=== PATIENT | male | born 1950 | race Caucasian/White ===

== ENCOUNTER 2017-07-21 10:56 | Inpatient (IN) | payer MEDICARE, OTHER ==
[2017-07-21] MEDS ORDERED: IPRATROPIUM 0.5 MG/2.5 ML NEBU INHALATION STA (11:16)
[2017-07-21] MEDS ORDERED: SODIUM CHLORIDE 0.9% 1,000 ML IV STA ×2 (11:16)
[2017-07-21] MEDS ORDERED: LORazepam 2 MG/ML INJ IV STA (11:16)
[2017-07-21] MEDS ORDERED: methylPREDNISolone SOD SUCCI 125 MG/2 ML VIAL IV STA (11:16)
[2017-07-21] MEDS ORDERED: ALBUTEROL NEBULIZED 2.5 MG/3 ML INHALATION STA (11:16)
[2017-07-21] MEDS ORDERED: MORPHINE SULFATE 10 MG/ML SYRINGE IVP PRN (11:17)
[2017-07-21] MEDS ORDERED: MORPHINE SULFATE 10 MG/ML SYRINGE IVP STA (11:17)
[2017-07-21] MEDS ORDERED: AZITHROMYCIN 500 MG in SODIUM CHLORIDE 0.9% 250 ML IVPB STA (11:19)
--- NOTE | 2017-07-21 11:24 | ED ---
General Adult HPI - General Chief complaint: Shortness of Breath Stated complaint: legs/feet swollen Time Seen by Provider: 07/21/17 11:10 Source: patient, RN notes reviewed, old records reviewed Mode of arrival: ambulatory Limitations: no limitations - History of Present Illness Initial comments: This is a 67-year-old male who is evaluation regarding shortness of breath, patient has history of COPD and CHF. Patient denies any fevers but does complain of increased cough and congestion. No travel history. Patient's most recent hospitalization has been years ago. Patient states he usually goes to [facility]. Patient states he is doing. She was at home with no help. He is getting increased swelling of both of his legs. He cannot lie down flat and when he exerts himself he becomes severely short of breath. No history of fever - Related Data Home Medications Medication Instructions Recorded Confirmed Albuterol Nebulized [Ventolin 2.5 mg INHALATION Q4H 07/21/17 07/21/17 Nebulized] Albuterol Sulfate [Proair Hfa] 1 - 2 puff INHALATION Q6HR PRN 07/21/17 07/21/17 Aspirin EC [Ecotrin Low Dose] 81 mg PO DAILY 07/21/17 07/21/17 Budesonide/Formoterol Fumarate 1 puff INHALATION RT-BID 07/21/17 07/21/17 [Symbicort 80-4.5 Mcg Inhaler] Equate Cough And Congestion 1 tab PO DAILY 07/21/17 07/21/17 Equate Sinus 1 tab PO DAILY 07/21/17 07/21/17 Ibuprofen [Motrin] 600 mg PO Q8HR PRN 07/21/17 07/21/17 Levothyroxine Sodium [Synthroid] 50 mcg PO DAILY 07/21/17 07/21/17 Tiotropium 18 Mcg/Puff [Spiriva] 1 cap INHALATION RT-DAILY 07/21/17 07/21/17 Allergies Allergy/AdvReac Type Severity Reaction Status Date / Time No Known Allergies Allergy Verified 07/21/17 11:39 Review of Systems ROS Statement: Those systems with pertinent positive or pertinent negative responses have been documented in the HPI. ROS Other: All systems not noted in ROS Statement are negative. Past Medical History Past Medical History: COPD, Thyroid Disorder History of Any Multi-Drug Resistant Organisms: None Reported Additional Past Surgical History / Comment(s): radiated thyroid Past Psychological History: No Psychological Hx Reported Smoking Status: Current every day smoker Past Alcohol Use History: None Reported Past Drug Use History: None Reported General Exam Limitations: no limitations General appearance: alert, in no apparent distress Head exam: Present: atraumatic, normocephalic, normal inspection Eye exam: Present: normal appearance, PERRL, EOMI. Absent: scleral icterus, conjunctival injection, periorbital swelling ENT exam: Present: normal exam, mucous membranes moist Neck exam: Present: normal inspection. Absent: tenderness, meningismus, lymphadenopathy Respiratory exam: Present: normal lung sounds bilaterally, wheezes, accessory muscle use, decreased breath sounds, prolonged expiratory. Absent: respiratory distress, rales, rhonchi, stridor Cardiovascular Exam: Present: regular rate, normal rhythm, normal heart sounds. Absent: systolic murmur, diastolic murmur, rubs, gallop, clicks GI/Abdominal exam: Present: soft, normal bowel sounds. Absent: distended, tenderness, guarding, rebound, rigid Extremities exam: Present: normal inspection, full ROM, normal capillary refill. Absent: tenderness, pedal edema, joint swelling, calf tenderness Back exam: Present: normal inspection Neurological exam: Present: alert, oriented X3, CN II-XII intact Psychiatric exam: Present: normal affect, normal mood Skin exam: Present: warm, dry, intact, normal color. Absent: rash Course Vital Signs 07/21/17 07/21/17 07/21/17 10:58 12:00 12:10 Temperature 98.1 F Pulse Rate 94 95 87 Respiratory 20 18 Rate Blood Pressure 194/91 172/84 O2 Sat by Pulse 97 100 Oximetry 07/21/17 07/21/17 07/21/17 12:14 12:35 12:45 Temperature Pulse Rate 85 89 93 Respiratory 18 Rate Blood Pressure 172/85 O2 Sat by Pulse 99 Oximetry 07/21/17 12:56 Temperature Pulse Rate 92 Respiratory 18 Rate Blood Pressure 163/84 O2 Sat by Pulse 99 Oximetry - Reevaluation(s) Reevaluation #1: 07/21/17 12:58 No significant improvement with first breathing treatment, patient is feeling better and able to rest comfortably after second breathing treatment EKG Findings - EKG Comments: EKG Findings:: EKG shows normal sinus rhythm rate of 91, CT 126, QRS 66, QTc 440 Medical Decision Making - Medical Decision Making 59 male the ER for evaluation of multifactorial shortness of breath and respiratory failure, patient is actively placed on BiPAP at this time as he has responded a second breathing treatment patient be admitted for evaluation by cardiology and pulmonology, lateral cardiopulmonary status - Lab Data Result diagrams: 07/21/17 11:07/21/17 11:27 Lab Results 07/21/17 07/21/17 07/21/17 Range/Units 11: 11: 11: WBC 9.0 (3.8-10.6) k/uL RBC 4.91 (4.30-5.90) m/uL Hgb 15.6 (13.0-17.5) gm/dL Hct 48.4 (39.0-53.0) % MCV 98.7 (80.0-100.0) fL MCH 31.8 (25.0-35.0) pg MCHC 32.3 (31.0-37.0) g/dL RDW 13.6 (11.5-15.5) % Plt Count 243 (150-450) k/uL Neutrophils % 66 % Lymphocytes % 23 % Monocytes % 9 % Eosinophils % 1 % Basophils % 0 % Neutrophils # 5.9 (1.3-7.7) k/uL Lymphocytes # 2.0 (1.0-4.8) k/uL Monocytes # 0.8 (0-1.0) k/uL Eosinophils # 0.1 (0-0.7) k/uL Basophils # 0.0 (0-0.2) k/uL PT (9.0-12.0) sec INR (<1.2) APTT (22.0-30.0) sec Sodium 135 L (137-145) mmol/L Potassium 4.8 (3.5-5.1) mmol/L Chloride 106 (98-107) mmol/L Carbon Dioxide 26 (22-30) mmol/L Anion Gap 3 mmol/L BUN 31 H (9-20) mg/dL Creatinine 1.30 H (0.66-1.25) mg/dL Est GFR (MDRD) Af Amer >60 (>60 ml/min/1.73 sqM) Est GFR (MDRD) Non-Af 55 (>60 ml/min/1.73 sqM) Glucose 98 (74-99) mg/dL Calcium 8.0 L (8.4-10.2) mg/dL Magnesium 2.4 H (1.6-2.3) mg/dL Total Bilirubin 0.4 (0.2-1.3) mg/dL AST 31 (17-59) U/L ALT 33 (21-72) U/L Alkaline Phosphatase 95 (38-126) U/L Total Creatine Kinase 146 (55-170) U/L CK-MB (CK-2) 3.0 H* (0.0-2.4) ng/mL CK-MB (CK-2) Rel Index 2.1 Troponin I 0.013 (0.000-0.034) ng/mL NT-Pro-B Natriuret Pep pg/mL Total Protein 5.0 L (6.3-8.2) g/dL Albumin 2.5 L (3.5-5.0) g/dL 07/21/17 07/21/17 Range/Units 11:27 11:27 WBC (3.8-10.6) k/uL RBC (4.30-5.90) m/uL Hgb (13.0-17.5) gm/dL Hct (39.0-53.0) % MCV (80.0-100.0) fL MCH (25.0-35.0) pg MCHC (31.0-37.0) g/dL RDW (11.5-15.5) % Plt Count (150-450) k/uL Neutrophils % % Lymphocytes % % Monocytes % % Eosinophils % % Basophils % % Neutrophils # (1.3-7.7) k/uL Lymphocytes # (1.0-4.8) k/uL Monocytes # (0-1.0) k/uL Eosinophils # (0-0.7) k/uL Basophils # (0-0.2) k/uL PT 9.4 (9.0-12.0) sec INR 0.9 (<1.2) APTT 28.8 (22.0-30.0) sec Sodium (137-145) mmol/L Potassium (3.5-5.1) mmol/L Chloride (98-107) mmol/L Carbon Dioxide (22-30) mmol/L Anion Gap mmol/L BUN (9-20) mg/dL Creatinine (0.66-1.25) mg/dL Est GFR (MDRD) Af Amer (>60 ml/min/1.73 sqM) Est GFR (MDRD) Non-Af (>60 ml/min/1.73 sqM) Glucose (74-99) mg/dL Calcium (8.4-10.2) mg/dL Magnesium (1.6-2.3) mg/dL Total Bilirubin (0.2-1.3) mg/dL AST (17-59) U/L ALT (21-72) U/L Alkaline Phosphatase (38-126) U/L Total Creatine Kinase (55-170) U/L CK-MB (CK-2) (0.0-2.4) ng/mL CK-MB (CK-2) Rel Index Troponin I (0.000-0.034) ng/mL NT-Pro-B Natriuret Pep 3200 pg/mL Total Protein (6.3-8.2) g/dL Albumin (3.5-5.0) g/dL - Radiology Data Radiology results: report reviewed (Chest x-ray positive for CHF and pneumonia) , image reviewed Disposition Clinical Impression: Community acquired pneumonia, Acute pulmonary edema, Congestive heart failure, Acute exacerbation of chronic obstructive airways disease, Hypoxia Disposition: ADMITTED IP TO THIS HOSP Condition: Fair Referrals: Justin Rios DO [Primary Care Provider] - 1-2 days
[2017-07-21 11:38] LABS: Basophils % (A) 0 %; CH 32.3; CHCM 32.9; Eosinophils # (A) 0.1 k/uL (0-0.7); Eosinophils % (A) 1 %; HCT 48.4 % (39.0-53.0); HDW 2.51; HGB 15.6 gm/dL (13.0-17.5); Luc # (Auto) 0.22; Luc % (Auto) 2; Lymphocytes % (A) 23 %; MCH 31.8 pg (25.0-35.0); MCHC 32.3 g/dL (31.0-37.0); MCV 98.7 fL (80.0-100.0); Monocytes # (A) 0.8 k/uL (0-1.0); Monocytes % (A) 9 %; Neutrophils # (A) 5.9 k/uL (1.3-7.7); Neutrophils % (A) 66 %; RBC 4.91 m/uL (4.30-5.90); RDW 13.6 % (11.5-15.5); WBC (Perox) 8.32
--- NOTE | 2017-07-21 11:47 | XR ---
EXAMINATION TYPE: XR chest 1V portable DATE OF EXAM: 07/21/2017 COMPARISON: Chest x-ray April 26, 2014 HISTORY: Shortness of breath and bilateral leg swelling TECHNIQUE: Single AP portable frontal upright view of the chest is obtained. FINDINGS: The cardiac silhouette size remains within normal limits. The osseous structures remain demineralized. There is new focal opacity right mid to upper lung lateral aspect. There are suspected small bilateral pleural effusions and mild interstitial edema. No pneumothorax is evident bilaterall y. IMPRESSION: Small bilateral pleural effusions and mild interstitial edema, consider fluid overload s sánchez. Slightly more suspicious focal opacity right mid to upper lung suggestive of acute infiltrate a nd/or edema. Progress study advised.
[2017-07-21 11:48] LABS: INR 0.9 (<1.2); Partial Thromboplastin Time 28.8 sec (22.0-30.0); Prothrombin Time 9.4 sec (9.0-12.0)
[2017-07-21 11:49] LABS: ALT 33 U/L (21-72); AST 31 U/L (17-59); Alkaline Phosphatase 95 U/L (38-126); Anion Gap 3 mmol/L; Blood Urea Nitrogen 31 mg/dL (9-20); Carbon Dioxide 26 mmol/L (22-30); Chloride 106 mmol/L (98-107); Glucose 98 mg/dL (74-99); Magnesium 2.4 mg/dL (1.6-2.3); Non-African American GFR(MDRD) 55 (>60 ml/min/1.73 sqM); Potassium 4.8 mmol/L (3.5-5.1); Sodium 135 mmol/L (137-145); Total Bilirubin 0.4 mg/dL (0.2-1.3)
[2017-07-21 12:14] LABS: Troponin I 0.013 ng/mL (0.000-0.034)
[2017-07-21] MEDS ORDERED: cefTRIAXone IN SWFI 1,000 MG/10 ML SYRINGE IVP STA (12:54)
[2017-07-21] MEDS ORDERED: PNEUMONIA PROTOCOL UTILIZED 1 EACH MISC PO PRN (12:54)
[2017-07-21] MEDS: SODIUM CHLORIDE 0.9% 1,000 ML IV SCH (13:14)
[2017-07-21] MEDS: IPRATROPIUM-ALBUTEROL 3 ML NEB INHALATION SCH ×2 (17:03→20:53)
[2017-07-21] MEDS ORDERED: IBUPROFEN 600 MG TAB PO PRN (18:45)
[2017-07-21] MEDS: SYMBICORT 80-4.5 MCG INHALER INHALATION SCH (20:53)
[2017-07-21] MEDS: IPRATROPIUM 0.5 MG/2.5 ML NEBU INHALATION SCH (20:54)
[2017-07-22] MEDS: NICOTINE POLACRILEX 2 MG GUM BUCCAL PRN ×2 (01:17→07:47)
[2017-07-22] MEDS: LEVOTHYROXINE 50 MCG TAB PO SCH (06:54)
[2017-07-22] MEDS: ASPIRIN 81 MG PO SCH (07:47)
--- NOTE | 2017-07-22 07:52 | XR ---
EXAMINATION TYPE: XR chest 2V DATE OF EXAM: 07/22/2017 HISTORY: pneumonia. REFERENCE: Previous study dated 07/21/2017. FINDINGS: The lungs are overinflated. There is chronic interstitial change. The heart is not enlarged . I do not see evidence for focal pneumonia. It would be difficult to exclude some superimposed edema . There is a right-sided pleural effusion. IMPRESSION: 1. COPD. 2. RIGHT-SIDED PLEURAL EFFUSION. 3. INTERSTITIAL CHANGE. SOME OF THIS APPEARS CHRONIC. IT WOULD BE DIFFICULT TO EXCLUDE SUPERIMPOSED P ULMONARY EDEMA. PLEASE CORRELATE CLINICALLY.
[2017-07-22] MEDS: IPRATROPIUM-ALBUTEROL 3 ML NEB INHALATION SCH ×4 (07:53→21:09)
[2017-07-22] MEDS: IPRATROPIUM 0.5 MG/2.5 ML NEBU INHALATION SCH ×4 (07:54→21:10)
[2017-07-22] MEDS: SYMBICORT 80-4.5 MCG INHALER INHALATION SCH ×2 (07:54→21:09)
[2017-07-22] MEDS ORDERED: AZITHROMYCIN 500 MG in SODIUM CHLORIDE 0.9% 250 ML IVPB SCH (09:00)
[2017-07-22] MEDS ORDERED: ENOXAPARIN 40 MG/0.4 ML SYRINGE SQ SCH (09:00)
[2017-07-22] MEDS ORDERED: LISINOPRIL 2.5 MG TAB PO SCH (10:15)
[2017-07-22] MEDS: FUROSEMIDE 10 MG/ML 2 ML VIAL IV SCH ×2 (10:54→21:09)
[2017-07-22] MEDS: POTASSIUM CHLORIDE ER 20 MEQ TAB.ER PO SCH (10:54)
[2017-07-22 10:57] LABS: Basophils % (A) 0 %; CH 31.5; Eosinophils % (A) 0 %; HDW 2.45; HGB 13.6 gm/dL (13.0-17.5); Luc # (Auto) 0.26; Luc % (Auto) 2; Lymphocytes # (A) 1.3 k/uL (1.0-4.8); Lymphocytes % (A) 10 %; MCH 32.1 pg (25.0-35.0); MCHC 32.4 g/dL (31.0-37.0); MCV 99.1 fL (80.0-100.0); Mean Platelet Volume 7.5; Monocytes # (A) 1.3 k/uL (0-1.0); Monocytes % (A) 10 %; Neutrophils # (A) 10.3 k/uL (1.3-7.7); Neutrophils % (A) 78 %; RBC 4.24 m/uL (4.30-5.90); RDW 13.4 % (11.5-15.5); WBC 13.2 k/uL (3.8-10.6)
[2017-07-22 11:11] LABS: ALT 26 U/L (21-72); AST 22 U/L (17-59); Alkaline Phosphatase 74 U/L (38-126); Anion Gap 2 mmol/L; Blood Urea Nitrogen 48 mg/dL (9-20); Calcium 7.6 mg/dL (8.4-10.2); Carbon Dioxide 25 mmol/L (22-30); Chloride 107 mmol/L (98-107); Glucose 97 mg/dL (74-99); Magnesium 2.4 mg/dL (1.6-2.3); Non-African American GFR(MDRD) 32 (>60 ml/min/1.73 sqM); Sodium 134 mmol/L (137-145); Total Bilirubin <0.1 mg/dL (0.2-1.3); Total Protein 4.1 g/dL (6.3-8.2)
--- NOTE | 2017-07-22 11:32 | P.CNPUL ---
History of Present Illness Consult date: 07/22/17 Reason for consult: dyspnea, COPD History of present illness: 67-old male patient, a chronic smoker, with known history of COPD whereas been followed up at [facility] [place]. The patient is maintained on a combination of Spiriva and Symbicort. During his last evaluation, the patient was checked for oxygen supplementation patient was not found to qualify as to maintain a saturation above 90%. The patient lives alone in [address]. The patient is chronically short of breath however he has been able to manage well, live independently and perform activities of daily today life without any major difficulties. He is a COPD exacerbation was approximately 6 months ago and this was treated and outpatient basis with a combination of antibiotics and steroids. Over the past week, the patient became progressively worse in terms of his breathing and he became short of breath, developed congested cough and sputum production and increased bronchospasm wheezing. He also noted increased lower extremity swelling. No previous history of DVT or pulmonary embolism. No previous history of congestion heart failure. No angina. No palpitations. He had missed a smoker half pack of cigarettes on a daily basis. He had a chest x-ray here in the hospital that showed pulmonary vessel congestion and small right-sided pleural effusion in addition to a hyperinflation consistent with COPD. His BNP level is elevated at 3200. First set of cardiac enzyme including CPK was normal and the troponin was at 0.013. Coagulation profile is within normal limits. Review of Systems Constitutional: Reports fatigue, Reports weakness, Reports weight loss Eyes: denies blurred vision, denies bulging eye, denies decreased vision Ears: deny: decreased hearing, ear discharge, earache Ears, nose, mouth and throat: Denies headache, Denies sore throat Respiratory: Reports cough, Reports cough with sputum, Reports dyspnea, Reports wheezing Gastrointestinal: Denies abdominal pain, Denies diarrhea, Denies nausea, Denies vomiting Genitourinary: Reports as per HPI Musculoskeletal: Denies myalgias Musculoskeletal: bilateral: ankle swelling, absent: ankle pain, ankle stiffness Integumentary: Denies pruritus, Denies rash Neurological: Denies numbness, Denies weakness Psychiatric: Denies anxiety, Denies depression Endocrine: Denies fatigue, Denies weight change Past Medical History Past Medical History: COPD, Eye Disorder, Thyroid Disorder Additional Past Medical History / Comment(s): COPD, R eye macular degeneration , hypothyroid. History of Any Multi-Drug Resistant Organisms: None Reported Additional Past Surgical History / Comment(s): Hyperthyroidism status post radiation radiated thyroid, R eye injections for macular degeneration. Past Anesthesia/Blood Transfusion Reactions: No Reported Reaction Smoking Status: Current every day smoker - Past Family History Father Family Medical History: Myocardial Infarction (CO) Additional Family Medical History / Comment(s): Father had heart problems and of a CO at the age of 53 yrs. Mother Family Medical History: No Reported History Additional Family Medical History / Comment(s): Father was healthy and in his 80's. Medications and Allergies Home Medications Medication Instructions Recorded Confirmed Type Albuterol Nebulized [Ventolin 2.5 mg INHALATION Q4H 07/21/17 07/21/17 History Nebulized] Albuterol Sulfate [Proair Hfa] 1 - 2 puff INHALATION Q6HR PRN 07/21/17 07/21/17 History Aspirin EC [Ecotrin Low Dose] 81 mg PO DAILY 07/21/17 07/21/17 History Budesonide/Formoterol Fumarate 1 puff INHALATION RT-BID 07/21/17 07/21/17 History [Symbicort 80-4.5 Mcg Inhaler] Equate Cough And Congestion 1 tab PO DAILY 07/21/17 07/21/17 History Equate Sinus 1 tab PO DAILY 07/21/17 07/21/17 History Ibuprofen [Motrin] 600 mg PO Q8HR PRN 07/21/17 07/21/17 History Levothyroxine Sodium [Synthroid] 50 mcg PO DAILY 07/21/17 07/21/17 History Tiotropium 18 Mcg/Puff [Spiriva] 1 cap INHALATION RT-DAILY 07/21/17 07/21/17 History Allergies Allergy/AdvReac Type Severity Reaction Status Date / Time No Known Allergies Allergy Verified 07/21/17 11:39 Physical Exam Vitals: Vital Signs Temp Pulse Pulse Resp BP BP Pulse Ox 07/22/17 08:07 88 07/22/17 07:55 92 07/22/17 07:00 96.9 F L 87 16 133/75 90 L 07/21/17 23:00 97.4 F L 89 18 137/71 93 L 07/21/17 21:08 88 07/21/17 20:54 90 07/21/17 17:18 88 07/21/17 17:03 92 94 L 07/21/17 15:00 97.5 F L 95 18 143/75 91 L 07/21/17 13:45 97.8 F 07/21/17 13:42 86 18 156/78 94 L 07/21/17 12:58 94 07/21/17 12:56 92 18 163/84 99 07/21/17 12:45 93 07/21/17 12:35 89 18 172/85 99 07/21/17 12:14 85 07/21/17 12:10 87 18 172/84 100 07/21/17 12:00 95 Intake and Output 07/21/17 07/22/17 07/22/17 22:59 06:59 14:59 Other: # Voids 2 2 Gen. appearance the patient is then and frail and malnourished and mild degree of respiratory distress.Head exam was generally normal. There was no scleral icterus or corneal arcus. Mucous membranes were moist.Neck was supple and without jugular venous distension, thyromegaly, or carotid bruits. Carotids were easily palpable bilaterally. There was no adenopathy. The patient has a barrel chest. Breath sounds are diminished bilaterally along with diffuse expiratory wheezes throughout the lung hol[place]. Heart sounds are distant, positive S1-S2, no cervical murmurs appreciated.Abdominal exam revealed normal bowel sounds. The abdomen was soft, non-tender, and without masses, organomegaly , or appreciable enlargement of the abdominal aorta. Extremities show +1 pitting edema and there is no cyanosis or clubbing at this point. Neurologically the patient is awake and alert and there are no focal neurological deficits.Examination of the skin revealed no evidence of significant rashes, suspicious appearing nevi or other concerning lesions. Results - Laboratory Findings CBC and BMP: 07/22/17 10:19 07/21/17 11:27 PT/INR, D-dimer PT 9.4 sec (9.0-12.0) 07/21/17 11: INR 0.9 (<1.2) 07/21/17 11:27 Abnormal lab findings: Abnormal Labs 07/21/17 07/21/17 07/22/17 11:27 11:27 10:19 WBC 13.2 H RBC 4.24 L Neutrophils # 10.3 H Monocytes # 1.3 H Sodium 135 L BUN 31 H Creatinine 1.30 H Calcium 8.0 L Magnesium 2.4 H CK-MB (CK-2) 3.0 H* Total Protein 5.0 L Albumin 2.5 L - Diagnostic Findings Chest x-ray: image reviewed Assessment and Plan Plan: Assessment 1 acute COPD exacerbation with secondary shortness of breath. Rule out underlying tracheobronchitis 2 CHF suspected based on increased lower extremity edema and elevated BNP level. Chest x-ray also shows increased interstitial markings. 3 acute kidney injury with a creatinine of 1.3 versus chronic kidney failure 4 chronic smoker 5. Hyperthyroidism status post radioactive iodine treatment Plan Start the patient on DuoNeb nebulized treatments around the clock. Start the patient IV Solu-Medrol. Start the patient a combination of Rocephin and Zithromax. Smoking cessation counseling will be done. Start the patient on Lasix 20 mg IV every 12 hours. Monitor lower extremity edema. Obtain Doppler of the lower extremities. Proceed an echocardiogram. We'll continue to follow.
--- NOTE | 2017-07-22 11:35 | CONS ---
CONSULTATION Mr. Brown is a 67-year-old male who is followed only on the [facility], who presented with progressive peripheral edema going on for a week. He has chronic dyspnea on exertion and chronic tobacco use. He is quite limited in physical activity. He had a recent cough. He denies any symptoms of chest pain or prior history of cardiac disease. He denies any history of congestive heart failure in the past. He has occasional dizziness, palpitation, but no syncope. He is somewhat limited in his physical activity. His coronary risk factors are remarkable for smoking. He is nondiabetic. No documented hypertension. His lipid profile according to him has been stable. MEDICATION: His medications at home include levothyroxine 0.05 mg daily. Budesonide, aspirin, albuterol, Spiriva and Motrin on a p.r.n. basis. REVIEW OF SYSTEMS: Significant dyspnea on exertion with significant chronic obstructive lung disease, but he has not been evaluated by Pulmonary in the past. GI system: No recent GI bleed. No peptic ulcer disease. system no dysuria or hematuria. Nervous system no stroke or seizure. PAST MEDICAL HISTORY: Past medical history is remarkable for history of hyperthyroidism and I-131 radiation. He has lost weight at that time. PHYSICAL EXAMINATION: 67-year-old male, alert, oriented, in no apparent distress. Appears older than stated age. Blood pressure running in the 170s to 130s with a heart rate in the 80s. HEAD: Normocephalic. Eyes sclerae anicteric. Neck was increased jugular venous pressure. LUNGS: With severe decrease in the air exchange bilaterally. HEART: Regular rate and rhythm. S1, S2. No S3 with systolic murmur at the base, ejection type. No diastolic murmur. No rub. ABDOMEN: Soft, nontender. Positive bowel sounds. No organomegaly. Extremities 2+ edema bilaterally with +1 distal pulses. LAB DATA: Lab data revealed troponin 0.013. NT proBNP of 3200. BUN and creatinine 31 and 1.3. Potassium 4.8, sodium 135, magnesium of 2.4, hemoglobin 15.6. Chest x-ray revealed pleural effusion of small size with possible infiltrate. EKG revealed sinus mechanism with poor R wave progression cannot exclude inferior wall myocardial infarction. IMPRESSION: 1. Peripheral edema of new onset. His symptoms could be related to cor pulmonale. I do not have any prior evaluation of his left ventricular systolic function. 2. Severe chronic obstructive lung disease with probable tracheobronchitis. 3. History of hyperthyroidism status post radiation. Patient is on thyroid supplement. 4. Renal function abnormality, duration unclear. RECOMMENDATION: From the cardiac standpoint, I will obtain echocardiogram with Doppler to evaluate his thyroid function test. I will add IV Lasix to his regimen. Depending on his left ventricular systolic function, he may be a candidate for an GALLO inhibitor. He will need to be evaluated by the Pulmonary service and depending on his progress, further recommendation will be made. Thank you for this consult. We will follow with you. MMODL / IJN: [id number] /
--- NOTE | 2017-07-22 12:01 | ECHOF ---
Referral Reason:fluid overload MEASUREMENTS -------- HEIGHT: 172.7 cm WEIGHT: 56.3 kg BP: 133/75 RVIDd: 3.0 cm (< 3.3) IVSd: 1.3 cm (0.6 - 1.1) LVIDd: 4.4 cm (3.9 - 5.3) LVPWd: 1.2 cm (0.6 - 1.1) IVSs: 1.7 cm LVIDs: 2.8 cm LVPWs: 1.6 cm LAESV Index (A-L): 29.27 ml/m Ao Diam: 3.5 cm (2.0 - 3.7) AV Cusp: 2.0 cm (1.5 - 2.6) LA Diam: 2.6 cm (2.7 - 3.8) MV EXCURSION: 15.293 mm (> 18.000) MV EF SLOPE: 132 mm/s (70 - 150) EPSS: 1.1 cm MV E Bertin: 0.88 m/s MV DecT: 212 ms MV A Bertin: 1.03 m/s MV E/A Ratio: 0.86 RAP: 15.00 mmHg RVSP: 63.65 mmHg FINDINGS -------- Sinus rhythm. Parasternal and apical views unable to be obtained. Entire study performed from subcostal window. The left ventricular size is normal. There is mild concentric left ventricular hypertrophy. Overa ll left ventricular systolic function is low-normal with, an EF between 50 - 55 %. The right ventricle is mild to moderately enlarged. The right ventricular systolic function is mild ly impaired. LA is midly dilated 29-33ml/m2. RA appears enlarged. The aortic valve is trileaflet, and appears structurally normal. No aortic stenosis or regurgitation. The mitral valve is normal. Mild mitral regurgitation is present. Mild tricuspid regurgitation present. There is moderate to severe pulmonary hypertension. Trace/mild (physiologic) pulmonic regurgitation. The aortic root size is normal. The inferior vena cava is dilated with poor inspiratory collapse which is consistent with estimated r ight atrial pressure of 20 mmHg. There is a small, generalized pericardial effusion present. CONCLUSIONS -------- 1. Sinus rhythm. 2. Parasternal and apical views unable to be obtained. Entire study performed from subcostal window. 3. There is mild concentric left ventricular hypertrophy. 4. Overall left ventricular systolic function is low-normal with, an EF between 50 - 55 %. 5. The right ventricle is mild to moderately enlarged. 6. The right ventricular systolic function is mildly impaired. 7. LA is midly dilated 29-33ml/m2. 8. RA appears enlarged. 9. The aortic valve is trileaflet, and appears structurally normal. No aortic stenosis or regurgitati on. 10. Mild mitral regurgitation is present. 11. Mild tricuspid regurgitation present. 12. There is moderate to severe pulmonary hypertension. 13. Trace/mild (physiologic) pulmonic regurgitation. 14. The aortic root size is normal. 15. The inferior vena cava is dilated with poor inspiratory collapse which is consistent with estimat ed right atrial pressure of 20 mmHg. 16. There is a small, generalized pericardial effusion present. [employer]ION[employer] TEST TECHNICIAN: Bud Brennan RDCS
[2017-07-22] MEDS: methylPREDNISolone SOD SUCCI 125 MG/2 ML VIAL IV SCH ×3 (12:04→23:12)
[2017-07-22] MEDS: INSULIN LISPRO (humaLOG) 300 UNIT/3 ML VIAL SQ SCH ×3 (12:05→21:10)
[2017-07-22 12:12] LABS: Glucose,Whole Blood 109 mg/dL (75-99)
[2017-07-22] MEDS ORDERED: cefTRIAXone IN SWFI 1,000 MG/10 ML SYRINGE IVP SCH (12:56)
--- NOTE | 2017-07-22 13:32 | US ---
"EXAMINATION TYPE: US venous doppler duplex LE DATE OF EXAM: 07/22/2017 1:06 PM COMPARISON: NONE CLINICAL HISTORY: leg edema. bilat leg edema, cold left thigh, patient states pain within left thigh SIDE PERFORMED: Bilateral TECHNIQUE: The lower extremity deep venous system is examined utilizing real time linear array sonog hal with graded compression, doppler sonography and color-flow sonography. VESSELS IMAGED: External Iliac Vein (EIV) Common Femoral Vein Deep Femoral Vein Greater Saphenous Vein * Femoral Vein Popliteal Vein Small Saphenous Vein * Proximal Calf Veins (* superficial vessels) Right Leg: Appears negative for DVT Left Leg: Appears negative for DVT, thrombus seen within left femoral artery proximally down throu gh dist femoral artery, internal echoes with no flow detected. No popliteal fossa lesion is seen. IMPRESSION: 1. THIS EXAMINATION IS NEGATIVE FOR DVT IN BOTH LEGS. 2. THIS EXAMINATION IS POSITIVE FOR FEMORAL ARTERY THROMBUS IN THE LEFT LEG EXTENDING FROM THE PROXIM AL TO DISTAL FEMORAL ARTERY. A Red message has been communicated to Murtaza Troy via the [employer] | Critical Result syst em on 07/22/2017 1:29 PM, Message ID [id number]."
[2017-07-22 14:28] VITALS: BMI 18.8
[2017-07-22 17:01] LABS: Glucose,Whole Blood 108 mg/dL (75-99)
[2017-07-22] MEDS: SODIUM CHLORIDE 0.9% 1,000 ML IV SCH (17:55)
[2017-07-22] MEDS ORDERED: ENOXAPARIN 60 MG/0.6 ML SYRINGE SQ SCH (21:00)
[2017-07-22 21:13] LABS: Glucose,Whole Blood 120 mg/dL (75-99)
--- NOTE | 2017-07-22 23:39 | P.HPIM ---
History of Present Illness H&P Date: 07/22/17 Chief Complaint: Shortness of breath Patient is a 67-year-old male with a known history of COPD , hypothyroidism with history of radiation came to ER with complaints of worsening short of breath for the past 1 week. Patient also complained of cough with sputum production. Whitish to maury colored. No fever no chills. Patient was also having wheezing on admission seen currently. Patient otherwise denied any complaints of chest pain. Patient was also found to have mild leg swelling. Patient does not have a history of coronary artery disease. Patient follows with [facility] in [place]. Patient continues to smoke 1 pack per day. He had a chest x-ray here in the hospital that showed pulmonary vessel congestion and small right-sided pleural effusion in addition to a hyperinflation consistent with COPD. His BNP level is elevated at 3200. First set of cardiac enzyme including CPK was normal and the troponin was at 0.013. Coagulation profile is within normal limits. Review of Systems Constitutional: Patient denies any fever or chills . No generalized weakness or weight loss. Abdomen: Patient denied nausea vomiting and diarrhea and abdominal pain. Cardiovascular: Patient denies any chest pain or palpitations. Respiratory: Patient does have cough with sputum production and shortness of breath Neurologic: Patient denied any numbness or tingling headache. Musculoskeletal: Patient denies any complaints of joint swelling or deformity. Skin: Negative Psychiatric: Negative Endocrine: No heat or cold intolerance. No recent weight gain. Genitourinary: No dysuria or hematuria. All other 14 point ROS negative except the above Past Medical History Past Medical History: COPD, Eye Disorder, Thyroid Disorder Additional Past Medical History / Comment(s): COPD, R eye macular degeneration , hypothyroid. History of Any Multi-Drug Resistant Organisms: None Reported Additional Past Surgical History / Comment(s): Hyperthyroidism status post radiation radiated thyroid, R eye injections for macular degeneration. Past Anesthesia/Blood Transfusion Reactions: No Reported Reaction Smoking Status: Current every day smoker - Past Family History Father Family Medical History: Myocardial Infarction ([place]) Additional Family Medical History / Comment(s): Father had heart problems and of a [place] at the age of 53 yrs. Mother Family Medical History: No Reported History Additional Family Medical History / Comment(s): Father was healthy and in his 80's. Medications and Allergies Home Medications Medication Instructions Recorded Confirmed Type Albuterol Nebulized [Ventolin 2.5 mg INHALATION Q4H 07/21/17 07/21/17 History Nebulized] Albuterol Sulfate [Proair Hfa] 1 - 2 puff INHALATION Q6HR PRN 07/21/17 07/21/17 History Aspirin EC [Ecotrin Low Dose] 81 mg PO DAILY 07/21/17 07/21/17 History Budesonide/Formoterol Fumarate 1 puff INHALATION RT-BID 07/21/17 07/21/17 History [Symbicort 80-4.5 Mcg Inhaler] Equate Cough And Congestion 1 tab PO DAILY 07/21/17 07/21/17 History Equate Sinus 1 tab PO DAILY 07/21/17 07/21/17 History Ibuprofen [Motrin] 600 mg PO Q8HR PRN 07/21/17 07/21/17 History Levothyroxine Sodium [Synthroid] 50 mcg PO DAILY 07/21/17 07/21/17 History Tiotropium 18 Mcg/Puff [Spiriva] 1 cap INHALATION RT-DAILY 07/21/17 07/21/17 History Allergies Allergy/AdvReac Type Severity Reaction Status Date / Time No Known Allergies Allergy Verified 07/21/17 11:39 Physical Exam Vitals: Vital Signs Temp Pulse Pulse Resp BP BP Pulse Ox 07/22/17 11:41 92 07/22/17 11:31 96 07/22/17 08:07 88 07/22/17 07:55 92 07/22/17 07:00 96.9 F L 87 16 133/75 90 L 07/21/17 23:00 97.4 F L 89 18 137/71 93 L 07/21/17 21:08 88 07/21/17 20:54 90 07/21/17 17:18 88 07/21/17 17:03 92 94 L 07/21/17 15:00 97.5 F L 95 18 143/75 91 L 07/21/17 13:45 97.8 F 07/21/17 13:42 86 18 156/78 94 L 07/21/17 12:58 94 07/21/17 12:56 92 18 163/84 99 07/21/17 12:45 93 07/21/17 12:35 89 18 172/85 99 07/21/17 12:14 85 Intake and Output 07/21/17 07/22/17 07/22/17 22:59 06:59 14:59 Other: # Voids 2 2 PHYSICAL EXAMINATION: Patient is lying in the bed comfortably, no acute distress, awake alert and oriented.. HEENT: Normocephalic. Neck is supple. Pupils reactive. Nostrils clear. Oral cavity is moist. Ears reveal no drainage. Neck reveals no JVD, carotid bruits, or thyromegaly. CHEST EXAMINATION: Trachea is central. Symmetrical expansion. Bilateral diffuse wheezing present. No rhonchi or crackles CARDIAC: Normal S1, S2 with no gallops. No murmurs ABDOMEN: Soft. Bowel sounds normal. No organomegaly. No abdominal bruits. Extremities: 1+ edema. No clubbing or cyanosis Neurologically awake, alert, oriented x3 with well-coordinated movements. No focal deficits noted Skin: No rash or skin lesions. Psychiatric: Operative. Nonsuicidal Musculoskeletal: No joint swelling or deformity. Normal range of motion. Results CBC & Chem 7: 07/22/17 10:19 07/22/17 10:19 Labs: Abnormal Lab Results - Last 24 Hours (Table) 07/21/17 07/22/17 07/22/17 Range/Units 11:27 10:19 10:19 WBC 13.2 H (3.8-10.6) k/uL RBC 4.24 L (4.30-5.90) m/uL Neutrophils # 10.3 H (1.3-7.7) k/uL Monocytes # 1.3 H (0-1.0) k/uL Sodium 134 L (137-145) mmol/L BUN 48 H (9-20) mg/dL Creatinine 2.09 H (0.66-1.25) mg/dL Calcium 7.6 L (8.4-10.2) mg/dL Magnesium 2.4 H (1.6-2.3) mg/dL Total Bilirubin <0.1 L (0.2-1.3) mg/dL CK-MB (CK-2) 3.0 H* (0.0-2.4) ng/mL Total Protein 4.1 L (6.3-8.2) g/dL Albumin 2.0 L (3.5-5.0) g/dL TSH 10.900 H (0.465-4.680) mIU/L Thrombosis Risk Factor Assmnt - Choose All That Apply Any of the Below Risk Factors Present?: Yes Each Factor Represents 1 point: Abnormal pulmonary function (COPD), Heart failure (<1month), Swollen legs (current) Other Risk Factors: Yes Each Risk Factor Represents 2 Points: Age 61-74 years Other congenital or acquired thrombophilia - If yes, enter type in comment: No Thrombosis Risk Factor Assessment Total Risk Factor Score: 5 Thrombosis Risk Factor Assessment Level: High Risk Assessment and Plan Assessment: 1 acute COPD exacerbation with tracheobronchitis #2 elevated BNP at 3200. Possible new onset CHF. Ejection fraction unknown. #3 acute kidney injury. Most likely prerenal with the diuresis #4 left femoral artery thrombus. No DVT 5 nicotine addiction #6 hypothyroidism. His history of radioactive iron treatment Plan: Patient will be continued on breathing treatments and IV steroids. Continued antibiotics in the form of ceftriaxone and azithromycin. Cardiology and pulmonary has been consulted. Due to femoral thrombus patient will be started on anticoagulation with Lovenox and appreciate further recommendations from cardiology. Continue to monitor renal function. Continue with thyroid supplements. Will follow closely. Time with Patient: Greater than 30
[2017-07-23] MEDS: methylPREDNISolone SOD SUCCI 125 MG/2 ML VIAL IV SCH ×2 (06:34→06:36)
[2017-07-23] MEDS: LEVOTHYROXINE 50 MCG TAB PO SCH (06:34)
[2017-07-23] MEDS: IPRATROPIUM-ALBUTEROL 3 ML NEB INHALATION SCH ×4 (06:56→20:57)
[2017-07-23] MEDS: IPRATROPIUM 0.5 MG/2.5 ML NEBU INHALATION SCH (06:57)
[2017-07-23] MEDS ORDERED: IPRATROPIUM-ALBUTEROL 3 ML NEB INHALATION PRN (07:05)
[2017-07-23 07:17] LABS: Glucose,Whole Blood 141 mg/dL (75-99)
[2017-07-23 07:33] LABS: Potassium 6.1 mmol/L (3.5-5.1)
[2017-07-23 08:03] LABS: Glucose,Whole Blood 133 mg/dL (75-99)
[2017-07-23] MEDS: SYMBICORT 80-4.5 MCG INHALER INHALATION SCH (08:04)
[2017-07-23] MEDS: POTASSIUM CHLORIDE ER 20 MEQ TAB.ER PO SCH ×2 (08:08→08:14)
[2017-07-23] MEDS: FUROSEMIDE 10 MG/ML 2 ML VIAL IV SCH (08:08)
[2017-07-23] MEDS: ASPIRIN 81 MG PO SCH (08:08)
[2017-07-23] MEDS: AZITHROMYCIN 500 MG TAB PO SCH (08:08)
[2017-07-23] MEDS: INSULIN LISPRO (humaLOG) 300 UNIT/3 ML VIAL SQ SCH ×4 (08:09→20:44)
[2017-07-23] MEDS ORDERED: ENOXAPARIN 60 MG/0.6 ML SYRINGE SQ SCH (09:00)
[2017-07-23] MEDS ORDERED: ENOXAPARIN 30 MG/0.3 ML SYRINGE SQ SCH (09:00)
[2017-07-23] MEDS: LORazepam 2 MG/ML INJ IV PRN (10:26)
--- NOTE | 2017-07-23 10:37 | NM ---
EXAMINATION TYPE: NM pul vent and perfuse DATE OF EXAM: 07/23/2017 COMPARISON: Chest x-ray dated 07/22/2017. HISTORY: Elevated d-dimer TECHNIQUE: Utilizing inhalation of 73.8 mCi Tc 99m DTPA aerosol and intravenous injection of 5.1 mCi of Tc 99m MAA, ventilation and perfusion images are acquired post injection in multiple projections. FINDINGS: There are severe emphysematous changes on the accompanying chest x-ray. There is central airway deposition on the ventilation scan. There are several matched perfusion and v entilation defects in the right upper lobe as well as the right midlung. There are no mismatches. IMPRESSION: THIS EXAMINATION IS INDETERMINATE FOR PULMONARY EMBOLUS.
[2017-07-23] MEDS ORDERED: SODIUM POLYSTYRENE SULFONATE 15 GM/60 ML BOTTLE PO STA (10:44)
[2017-07-23] MEDS ORDERED: LEVOTHYROXINE 50 MCG TAB PO SCH (10:45)
[2017-07-23] MEDS ORDERED: predniSONE 20 MG TAB PO SCH (10:45)
[2017-07-23 11:40] LABS: Appearance,Urine Turbid (Clear); Bacteria,Urine Rare /hpf; Bilirubin,Urine Negative (Negative); Glucose,Urine (UA) Trace (Negative); Ketones,Urine Negative (Negative); Leukocyte Esterase,Urine Negative (Negative); Nitrite,Urine Negative (Negative); Particle Count 11575; Protein,Urine 3+ (Negative); RBC,Urine 2 /hpf (0-5); Specific Gravity,Urine 1.015 (1.001-1.035); UA Billing (MACRO vs. MICRO) MICRO; Urobilinogen,Urine <2.0 mg/dL (<2.0); WBC,Urine 6 /hpf (0-5)
[2017-07-23 11:41] LABS: Glucose,Whole Blood 100 mg/dL (75-99)
--- NOTE | 2017-07-23 11:47 | P.NPCON ---
History of Present Illness - Reason for Consult Consult date: 07/23/17 acute renal failure - Chief Complaint Shortness of breath - History of Present Illness Mr. Brown 67-year-old white gentleman coming to the hospital with shortness of breath. He has underlying COPD and diastolic CHF. Currently he is on BiPAP unable to get a good history from him. He used to follow up with [facility] in [place]. No baseline creatinine available in the system. When he presented his serum creatinine was 1.3 MG per DL. Creatinine started creeping yesterday 2 through MG per DL and today still 1.98 MG per DL. He is also hyperkalemic with a potassium of 6.1. As per the nursing staff he did not make any urine since 1:00 last night, and he will is also getting Lasix as well. Bladder scan was done at the bedside which showed 450 ML's of urine. No history of NSAID use, recent contrast studies. Review of Systems Short of breath with mild distress Denies chest pains No nausea vomiting or diarrhea No joint pains calf tenderness No dysuria or hematuria Past Medical History Past Medical History: COPD, Eye Disorder, Thyroid Disorder Additional Past Medical History / Comment(s): COPD, R eye macular degeneration , hypothyroid. History of Any Multi-Drug Resistant Organisms: None Reported Additional Past Surgical History / Comment(s): Hyperthyroidism status post radiation radiated thyroid, R eye injections for macular degeneration. Past Anesthesia/Blood Transfusion Reactions: No Reported Reaction Smoking Status: Current every day smoker - Past Family History Father Family Medical History: Myocardial Infarction ([place]) Additional Family Medical History / Comment(s): Father had heart problems and of a [place] at the age of 53 yrs. Mother Family Medical History: No Reported History Additional Family Medical History / Comment(s): Father was healthy and in his 80's. Medications and Allergies Home Medications Medication Instructions Recorded Confirmed Type Albuterol Nebulized [Ventolin 2.5 mg INHALATION Q4H 07/21/17 07/21/17 History Nebulized] Albuterol Sulfate [Proair Hfa] 1 - 2 puff INHALATION Q6HR PRN 07/21/17 07/21/17 History Aspirin EC [Ecotrin Low Dose] 81 mg PO DAILY 07/21/17 07/21/17 History Budesonide/Formoterol Fumarate 1 puff INHALATION RT-BID 07/21/17 07/21/17 History [Symbicort 80-4.5 Mcg Inhaler] Equate Cough And Congestion 1 tab PO DAILY 07/21/17 07/21/17 History Equate Sinus 1 tab PO DAILY 07/21/17 07/21/17 History Ibuprofen [Motrin] 600 mg PO Q8HR PRN 07/21/17 07/21/17 History Levothyroxine Sodium [Synthroid] 50 mcg PO DAILY 07/21/17 07/21/17 History Tiotropium 18 Mcg/Puff [Spiriva] 1 cap INHALATION RT-DAILY 07/21/17 07/21/17 History Allergies Allergy/AdvReac Type Severity Reaction Status Date / Time No Known Allergies Allergy Verified 07/21/17 11:39 Physical Exam Vitals: Vital Signs Temp Pulse Pulse Resp BP BP BP 07/23/17 10:22 129 H 07/23/17 10:12 130 H 07/23/17 09:00 98 23 152/81 07/23/17 08:00 98.4 F 105 H 30 H 171/97 07/23/17 07:12 07/23/17 07:02 128 H 07/23/17 06:57 133 H 07/23/17 06:45 124 H 185/110 07/23/17 06:40 188 H 190/110 07/22/17 23:30 97.4 F L 87 24 145/83 07/22/17 21:24 80 07/22/17 21:10 78 07/22/17 17:12 88 07/22/17 16:57 90 07/22/17 14:47 96.9 F L 89 16 166/77 167/89 07/22/17 11:41 92 07/22/17 11:31 96 Pulse Ox 07/23/17 10:22 07/23/17 10:12 07/23/17 09:00 92 L 07/23/17 08:00 93 L 07/23/17 07:12 96 07/23/17 07:02 07/23/17 06:57 07/23/17 06:45 96 07/23/17 06:40 85 L 07/22/17 23:30 92 L 07/22/17 21:24 07/22/17 21:10 07/22/17 17:12 07/22/17 16:57 95 07/22/17 14:47 93 L 07/22/17 11:41 07/22/17 11:31 Intake and Output 07/22/17 07/23/17 07/23/17 22:59 06:59 14:59 Intake Total 300 200 230 Output Total 87 Balance 213 200 230 Intake: Intake, IV Titration 70 Amount Sodium Chloride 0.9% 1, 20 000 ml @ 20 mls/hr IV . Q24H [facility] Rx#:[id number] cefTRIAXone 1,000 mg In 50 Sodium Chloride 0.9% 50 ml @ 100 mls/hr IVPB Q24HR FO[facility]IA Rx#:[id number] Oral 300 200 160 Output: Post Void Residual 87 Other: Voiding Method Urinal Urinal # Voids 1 1 0 Mild distress wearing BiPAP Decrease breath sounds at the bases S1-S2 heard Abdominal distention 2+ edema bilaterally Results - Lab Results Most recent lab results Calcium 8.0 mg/dL (8.4-10.2) L 07/23/17 06:58 Magnesium 2.4 mg/dL (1.6-2.3) H 07/22/17 10:19 07/22/17 10:19 07/23/17 06:58 Assessment and Plan Assessment: Impression: #1 acute kidney injury, multifactorial. Possibilities include obstructive uropathy and cardiorenal syndrome. #2 hyperkalemia secondary to obstruction and also on potassium supplements. #3 diastolic CHF currently decompensated. #4 hypervolemia #5 metabolic acidosis secondary to #1. #6 urinary retention. Recommendations: #1 Sánchez catheter, strict I's and O's. Check UA and ultrasound of the kidneys. #2 continue with Lasix 20 mg IV twice a day. #3 DC potassium supplements. #4 add sodium bicarbonate for metabolic acidosis. #5 avoid nephrotoxic agents and hypotensive episodes. Thank you very much for this consultation we will follow along while he is in the hospital.
--- NOTE | 2017-07-23 11:48 | P.PN ---
Subjective Progress Note Date: 07/23/17 Principal diagnosis: Peripheral edema This is a pleasant 67-year-old gentleman with a past medical history significant for advanced chronic obstructive pulmonary disease who is also a chronic tobacco user was admitted to the hospital with dyspnea. We get involved in the care of the patient recalls of bilateral lower extremities edema. The patient did not have any symptoms of chest pain or chest discomfort , dizziness or lightheadedness, or syncope. The patient was started on Lasix IV yesterday for the peripheral edema. He he was transferred to the intensive care unit yesterday because he was quite dyspneic. On follow-up with the patient today, he continues to be in mild respiratory distress. He still have bilateral lower extremities edema. The potassium is elevated and the patient is not on any nephrotoxic medications. Beside that he is tachycardic and hypertensive and I will start the patient on Cardizem by mouth. Objective - Vital Signs Vital signs: Vital Signs Temp 98.4 F 07/23/17 08:00 Pulse 129 H 07/23/17 10:22 Resp 23 07/23/17 09:00 BP 152/81 07/23/17 09:00 Pulse Ox 92 L 07/23/17 09:00 Intake & Output 07/22/17 07/23/17 07/23/17 18:59 06:59 18:59 Intake Total 500 230 Output Total 87 Balance -87 500 230 Weight 56.245 kg Intake: Intake, IV Titration 70 Amount Sodium Chloride 0.9% 1, 20 000 ml @ 20 mls/hr IV . Q24H [facility] Rx#:[id number] cefTRIAXone 1,000 mg In 50 Sodium Chloride 0.9% 50 ml @ 100 mls/hr IVPB Q24HR [facility] Rx#:[id number] Oral 500 160 Output: Post Void Residual 87 Other: Voiding Method Urinal Urinal # Voids 1 1 0 - Constitutional General appearance: Present: mild distress - Respiratory Respiratory: bilateral: diminished - Cardiovascular Rhythm: regular Heart sounds: normal: S1, S2 - Labs CBC & Chem 7: 07/22/17 10:19 07/23/17 06:58 Labs: Abnormal Lab Results - Last 24 Hours (Table) 07/22/17 07/22/17 07/22/17 Range/Units 10:19 12:03 16:51 D-Dimer (<0.60) mg/L FEU Sodium 134 L (137-145) mmol/L Potassium (3.5-5.1) mmol/L Chloride (98-107) mmol/L Carbon Dioxide (22-30) mmol/L BUN 48 H (9-20) mg/dL Creatinine 2.09 H (0.66-1.25) mg/dL Glucose (74-99) mg/dL POC Glucose (mg/dL) 109 H 108 H (75-99) mg/dL Calcium 7.6 L (8.4-10.2) mg/dL Magnesium 2.4 H (1.6-2.3) mg/dL Total Bilirubin <0.1 L (0.2-1.3) mg/dL Total Protein 4.1 L (6.3-8.2) g/dL Albumin 2.0 L (3.5-5.0) g/dL TSH 10.900 H (0.465-4.680) mIU/L 07/22/17 07/23/17 07/23/17 Range/Units 21:03 06:58 07:01 D-Dimer 1.00 H (<0.60) mg/L FEU Sodium 133 L (137-145) mmol/L Potassium 6.1 H (3.5-5.1) mmol/L Chloride 108 H (98-107) mmol/L Carbon Dioxide 20 L (22-30) mmol/L BUN 61 H (9-20) mg/dL Creatinine 1.98 H (0.66-1.25) mg/dL Glucose 154 H (74-99) mg/dL POC Glucose (mg/dL) 120 H (75-99) mg/dL Calcium 8.0 L (8.4-10.2) mg/dL Magnesium (1.6-2.3) mg/dL Total Bilirubin (0.2-1.3) mg/dL Total Protein (6.3-8.2) g/dL Albumin (3.5-5.0) g/dL TSH (0.465-4.680) mIU/L 07/23/17 07/23/17 Range/Units 07:14 08:01 D-Dimer (<0.60) mg/L FEU Sodium (137-145) mmol/L Potassium (3.5-5.1) mmol/L Chloride (98-107) mmol/L Carbon Dioxide (22-30) mmol/L BUN (9-20) mg/dL Creatinine (0.66-1.25) mg/dL Glucose (74-99) mg/dL POC Glucose (mg/dL) 141 H 133 H (75-99) mg/dL Calcium (8.4-10.2) mg/dL Magnesium (1.6-2.3) mg/dL Total Bilirubin (0.2-1.3) mg/dL Total Protein (6.3-8.2) g/dL Albumin (3.5-5.0) g/dL TSH (0.465-4.680) mIU/L Microbiology - Last 24 Hours (Table) 07/21/17 11:27 Blood Culture - Preliminary Blood No Growth after 24 hours Assessment and Plan Assessment: This is a 67-year-old gentleman who was admitted to the hospital with dyspnea and COPD exacerbation. I will start the patient on Cardizem by mouth to control the heart rate and blood pressure. Continue monitor the kidney function and electrolytes. The echocardiogram was reviewed and revealed normal LV function without any significant valvular abnormalities.
[2017-07-23] MEDS: LEVOTHYROXINE 75 MCG TAB PO SCH (12:12)
[2017-07-23] MEDS: SODIUM BICARBONATE TAB 650 MG TAB PO SCH ×2 (12:13→20:44)
--- NOTE | 2017-07-23 14:20 | P.PN ---
Subjective Progress Note Date: 07/23/17 67-old male patient, a chronic smoker, with known history of COPD whereas been [facility] [place]. The patient is maintained on a combination of Spiriva and Symbicort. During his last evaluation, the patient was checked for oxygen supplementation patient was not found to qualify as to maintain a saturation above 90%. The patient lives alone in [address]. The patient is chronically short of breath however he has been able to manage well, live independently and perform activities of daily today life without any major difficulties. He is a COPD exacerbation was approximately 6 months ago and this was treated and outpatient basis with a combination of antibiotics and steroids. Over the past week, the patient became progressively worse in terms of his breathing and he became short of breath, developed congested cough and sputum production and increased bronchospasm wheezing. He also noted increased lower extremity swelling. No previous history of DVT or pulmonary embolism. No previous history of congestion heart failure. No angina. No palpitations. He had missed a smoker half pack of cigarettes on a daily basis. He had a chest x-ray here in the hospital that showed pulmonary vessel congestion and small right-sided pleural effusion in addition to a hyperinflation consistent with COPD. His BNP level is elevated at 3200. First set of cardiac enzyme including CPK was normal and the troponin was at 0.013. Coagulation profile is within normal limits. On 07/23/2017 I'm seeing this patient for a follow-up. The patient got moved to the intensive care unit earlier this morning as the patient was getting progressively more short of breath. He was very anxious and he was unable to lay down in bed because of increased shortness of breath. At that point the patient got transferred to the intensive care unit. He was placed on the BiPAP at a pressure of 10/5 cm of water. He was also given a dose of Ativan which helped him with his anxiety and shortness of breath. The patient tells that he is unable to tolerate systemic steroids because makes him agitated and restless and for that reason I will switch this patient from IV Solu Medrol to high-dose oral prednisone starting with 60 mg on a daily basis. He is still on bronchodilators and he'll be placed on a combination of Perforomist and Pulmicort neb last 2 minutes twice a day in addition to DuoNeb the breast units 4 times a day. He is on empiric antibiotic coverage. His chest x-ray still showing some small bilateral pleural effusions. VQ scan was of indeterminate probability for pulmonary embolism. The patient Doppler of the lower extremity that showed no venous Doppler/DVT yet there was an arterial subocclusive clot at the left femoral artery. On examination the patient has palpable pulses in the femoral area and pulses in the distal lower extremities are diminished and there obtained by Doppler. He denies having any claudication. The feet are warm bilaterally. The patient continues to have some chronic edema lower extremities bilaterally. No angina. He was having some urinary retention his creatinine is up to 1.98 on the patient is also developed a component of hyperkalemia with a potassium level of 6.1.. We further came to find out that the patient was having difficulty in urination and his bladder scan showed urinary retention and the patient had a Sánchez catheter inserted immediately. Objective - Vital Signs Vital signs: Vital Signs Temp 98.4 F 07/23/17 12:00 Pulse 88 07/23/17 13:00 Resp 19 07/23/17 13:00 BP 149/75 07/23/17 13:00 Pulse Ox 98 07/23/17 13:00 Intake & Output 07/22/17 07/23/17 07/23/17 18:59 06:59 18:59 Intake Total 500 230 Output Total 87 430 Balance -87 500 -200 Weight 56.245 kg Intake: Intake, IV Titration 70 Amount Sodium Chloride 0.9% 1, 20 000 ml @ 20 mls/hr IV . Q24H [facility] Rx#:[id number] cefTRIAXone 1,000 mg In 50 Sodium Chloride 0.9% 50 ml @ 100 mls/hr IVPB Q24HR [facility] Rx#:[id number] Oral 500 160 Output: Urine 430 Post Void Residual 87 Other: Voiding Method Urinal Indwelling Catheter # Voids 1 1 0 # Bowel Movements 1 - Exam Gen. appearance the patient is then and frail and malnourished and mild degree of respiratory distress.the patient is currently on BiPAP for respiratory support and is able to tolerate a full face BiPAP mask without any major difficulties. Head exam was generally normal. There was no scleral icterus or corneal arcus. Mucous membranes were moist.Neck was supple and without jugular venous distension, thyromegaly, or carotid bruits. Carotids were easily palpable bilaterally. There was no adenopathy. The patient has a barrel chest. Breath sounds are diminished bilaterally along with diffuse expiratory wheezes throughout the lung [place]. Heart sounds are distant, positive S1-S2, no cervical murmurs appreciated.Abdominal exam revealed normal bowel sounds. The abdomen was soft, non-tender, and without masses, organomegaly, or appreciable enlargement of the abdominal aorta. Extremities show +1 pitting edema and there is no cyanosis or clubbing at this point. The pulses are obtainable by Doppler signal. Neurologically the patient is awake and alert and there are no focal neurological deficits.Examination of the skin revealed no evidence of significant rashes, suspicious appearing nevi or other concerning lesions. - Labs CBC & Chem 7: 07/22/17 10:19 07/23/17 06:58 Labs: Abnormal Lab Results - Last 24 Hours (Table) 07/22/17 07/22/17 07/23/17 Range/Units 16:51 21:03 06:58 D-Dimer (<0.60) mg/L FEU Sodium 133 L (137-145) mmol/L Potassium 6.1 H (3.5-5.1) mmol/L Chloride 108 H (98-107) mmol/L Carbon Dioxide 20 L (22-30) mmol/L BUN 61 H (9-20) mg/dL Creatinine 1.98 H (0.66-1.25) mg/dL Glucose 154 H (74-99) mg/dL POC Glucose (mg/dL) 108 H 120 H (75-99) mg/dL Calcium 8.0 L (8.4-10.2) mg/dL Urine Protein (Negative) Urine Glucose (UA) (Negative) Urine Blood (Negative) Urine WBC (0-5) /hpf Urine WBC Clumps (None) /hpf Urine Bacteria (None) /hpf 07/23/17 07/23/17 07/23/17 Range/Units 07:01 07:14 08:01 D-Dimer 1.00 H (<0.60) mg/L FEU Sodium (137-145) mmol/L Potassium (3.5-5.1) mmol/L Chloride (98-107) mmol/L Carbon Dioxide (22-30) mmol/L BUN (9-20) mg/dL Creatinine (0.66-1.25) mg/dL Glucose (74-99) mg/dL POC Glucose (mg/dL) 141 H 133 H (75-99) mg/dL Calcium (8.4-10.2) mg/dL Urine Protein (Negative) Urine Glucose (UA) (Negative) Urine Blood (Negative) Urine WBC (0-5) /hpf Urine WBC Clumps (None) /hpf Urine Bacteria (None) /hpf 07/23/17 07/23/17 Range/Units 11:28 11:39 D-Dimer (<0.60) mg/L FEU Sodium (137-145) mmol/L Potassium (3.5-5.1) mmol/L Chloride (98-107) mmol/L Carbon Dioxide (22-30) mmol/L BUN (9-20) mg/dL Creatinine (0.66-1.25) mg/dL Glucose (74-99) mg/dL POC Glucose (mg/dL) 100 H (75-99) mg/dL Calcium (8.4-10.2) mg/dL Urine Protein 3+ H (Negative) Urine Glucose (UA) Trace H (Negative) Urine Blood Small H (Negative) Urine WBC 6 H (0-5) /hpf Urine WBC Clumps Many H (None) /hpf Urine Bacteria Rare H (None) /hpf Microbiology - Last 24 Hours (Table) 07/21/17 11:27 Blood Culture - Preliminary Blood No Growth after 24 hours Assessment and Plan Plan: Assessment 1 acute COPD exacerbation with secondary shortness of breath. He more short of breath overnight and Subsequently more anxious. He was moved to the intensive care unit where he was started on a BiPAP treatment for respiratory support. He was taken off the IV Solu-Medrol and started on high-dose oral prednisone due to reported side effect to systemic steroids. He is also on Xanax for anxiety. Doubt pulmonary embolism. 2 CHF , essentially right-sided heart failure with significant edema in lower extremities bilaterally. 3 acute kidney injury with obstructive uropathy and the Sánchez catheter was inserted. The patient was slightly hypokalemic, anticipate improvement in the potassium level as the patient diuresis and producing adequate amount of urine output post Sánchez catheter insertion. Ultrasound the kidneys will be obtained. 4 chronic smoker 5. Hyperthyroidism status post radioactive iodine treatment, his subsequent TSH level is elevated. 6 peripheral vascular disease with a atherosclerotic segment of the left femoral artery without evidence of any acute vascular insufficiency at this point. The patient was also seen by Dr. Wood from cardiology. Plan Continue optimizing this patient's COPD. Continue bronchodilators. Continue oral prednisone. Continue empiric antibiotic coverage. Monitor renal functions and anticipate improvement in the creatinine and potassium post Sánchez catheter insertion. Awaiting ultrasound of the kidneys. We'll put Xanax for anxiety. Echocardiogram was noted. Condition is critical and the patient will be monitored very closely and be intubated if there is any further respiratory decompensation and compromise. For now he is tolerating the BiPAP treatment very well. We'll continue to follow. He'll be kept in ICU for now.
--- NOTE | 2017-07-23 14:21 | US ---
EXAMINATION TYPE: US kidneys/renal and bladder DATE OF EXAM: 07/23/2017 COMPARISON: NONE CLINICAL HISTORY: obstruction. Obstruction, exam done portable in ICU EXAM MEASUREMENTS: Right Kidney: 10.2 x 5.3 x 5.9 cm Left Kidney: 10.7 x 6.0 x 5.1 cm Right Kidney: no hydro or masses seen, inferior pole limited by overlying bowel gas Left Kidney: no hydro or masses seen Bladder: not fully distended, putnam catheter Bilateral Jets seen: no Right pleural effusion seen IMPRESSION: 1. NO EVIDENCE OF HYDRONEPHROSIS OR NEPHROLITHIASIS. 2. BLADDER NOT FULLY ASSESSED DUE TO PUTNAM CATHETER PLACEMENT. 3. RIGHT-SIDED PLEURAL EFFUSION.
[2017-07-23] MEDS: DILTIAZEM ORAL 30 MG TAB PO SCH ×2 (17:04→20:44)
[2017-07-23 17:43] LABS: Glucose,Whole Blood 139 mg/dL (75-99)
[2017-07-23 18:02] LABS: ALT 34 U/L (21-72); AST 42 U/L (17-59); Alkaline Phosphatase 74 U/L (38-126); Anion Gap 4 mmol/L; Blood Urea Nitrogen 72 mg/dL (9-20); Calcium 8.1 mg/dL (8.4-10.2); Carbon Dioxide 25 mmol/L (22-30); Chloride 105 mmol/L (98-107); Glucose 111 mg/dL (74-99); Non-African American GFR(MDRD) 31 (>60 ml/min/1.73 sqM); Potassium 5.9 mmol/L (3.5-5.1); Sodium 134 mmol/L (137-145); Total Bilirubin <0.1 mg/dL (0.2-1.3); Total Protein 4.7 g/dL (6.3-8.2)
[2017-07-23] MEDS: SODIUM CHLORIDE 0.9% 1,000 ML IV SCH (18:35)
[2017-07-23 20:44] LABS: Glucose,Whole Blood 146 mg/dL (75-99)
[2017-07-23] MEDS: ENOXAPARIN 60 MG/0.6 ML SYRINGE SQ SCH (20:44)
[2017-07-23] MEDS: FORMOTEROL FUMARATE 20 MCG/2 ML NEBU INHALATION SCH (20:57)
[2017-07-23] MEDS: BUDESONIDE 0.5 MG/2 ML NEBU INHALATION SCH (20:57)
[2017-07-23] MEDS ORDERED: FUROSEMIDE 10 MG/ML 2 ML VIAL IV SCH (21:00)
[2017-07-23] MEDS: ALPRAZolam 0.5 MG TAB PO PRN (21:57)
--- NOTE | 2017-07-23 23:15 | P.PN ---
Subjective Progress Note Date: 07/23/17 Principal diagnosis: Acute COPD exacerbation Patient is a 67-year-old male with a known history of COPD , hypothyroidism with history of radiation came to ER with complaints of worsening short of breath for the past 1 week. Patient also complained of cough with sputum production. Whitish to maury colored. No fever no chills. Patient was also having wheezing on admission seen currently. Patient otherwise denied any complaints of chest pain. Patient was also found to have mild leg swelling. Patient does not have a history of coronary artery disease. Patient follows with [facility] in [place]. Patient continues to smoke 1 pack per day. He had a chest x-ray here in the hospital that showed pulmonary vessel congestion and small right-sided pleural effusion in addition to a hyperinflation consistent with COPD. His BNP level is elevated at 3200. First set of cardiac enzyme including CPK was normal and the troponin was at 0.013. Coagulation profile is within normal limits. 07/23/2017 Patient went into respiratory distress this morning and was placed on BiPAP machine. Patient was transferred to MICU. Currently patient is on and maintaining saturation. Patient was found to have acute kidney injury and hyperkalemia today. Patient had urinary retention and possible obstructive acute kidney injury. Patient was placed on Sánchez catheter now and is maintaining good urine output. Patient had VQ scan showing moderate probable for PE. Patient is maintained on Lovenox for left femoral partial thrombus. Maintaining good arterial blood flow. Patient does not have any fever or chills. No nausea vomiting no diarrhea. All other review of systems negative except as above. Current medications reviewed Objective - Vital Signs Vital signs: Vital Signs Temp 98.1 F 07/23/17 20:00 Pulse 96 07/23/17 22:00 Resp 23 07/23/17 22:00 BP 149/76 07/23/17 22:00 Pulse Ox 94 L 07/23/17 22:00 Intake & Output 07/23/17 07/23/17 07/24/17 06:59 18:59 05:59 Intake Total 500 390 225 Output Total 565 80 Balance 500 -175 145 Intake: IV 150 Sodium Chloride 0.9% 1, 150 000 ml @ 75 mls/hr IV . [id number] [facility] Rx#:[id number] Intake, IV Titration 70 75 Amount Sodium Chloride 0.9% 1, 20 000 ml @ 20 mls/hr IV . Q24H [facility] Rx#:[id number] Sodium Chloride 0.9% 1, 75 000 ml @ 75 mls/hr IV . [id number] [facility] Rx#:[id number] cefTRIAXone 1,000 mg In 50 Sodium Chloride 0.9% 50 ml @ 100 mls/hr IVPB Q24HR [facility] Rx#:[id number] Oral 500 320 0 Output: Urine 565 80 Other: Voiding Method Urinal Indwelling Catheter Indwelling Catheter # Voids 1 0 # Bowel Movements 1 - Exam PHYSICAL EXAMINATION: Patient is lying in the bed comfortably, no acute distress, awake alert and oriented.. On BiPAP HEENT: Normocephalic. Neck is supple. Pupils reactive. Nostrils clear. Oral cavity is moist. Ears reveal no drainage. Neck reveals no JVD, carotid bruits, or thyromegaly. CHEST EXAMINATION: Trachea is central. Symmetrical expansion. Bilateral diffuse wheezing present. No rhonchi no crackles. CARDIAC: Normal S1, S2 with no gallops. No murmurs ABDOMEN: Soft. Bowel sounds normal. No organomegaly. No abdominal bruits. Extremities: 1+ edema. No clubbing or cyanosis Neurologically awake, alert, oriented x3 with well-coordinated movements. No focal deficits noted Skin: No rash or skin lesions. Psychiatric: coOperative. Nonsuicidal Musculoskeletal: No joint swelling or deformity. Normal range of motion. - Labs CBC & Chem 7: 07/22/17 10:19 07/23/17 17:12 Labs: Abnormal Lab Results - Last 24 Hours (Table) 07/23/17 07/23/17 07/23/17 Range/Units 06:58 07:01 07:14 D-Dimer 1.00 H (<0.60) mg/L FEU Sodium 133 L (137-145) mmol/L Potassium 6.1 H (3.5-5.1) mmol/L Chloride 108 H (98-107) mmol/L Carbon Dioxide 20 L (22-30) mmol/L BUN 61 H (9-20) mg/dL Creatinine 1.98 H (0.66-1.25) mg/dL Glucose 154 H (74-99) mg/dL POC Glucose (mg/dL) 141 H (75-99) mg/dL Calcium 8.0 L (8.4-10.2) mg/dL Total Bilirubin (0.2-1.3) mg/dL Total Protein (6.3-8.2) g/dL Albumin (3.5-5.0) g/dL Urine Protein (Negative) Urine Glucose (UA) (Negative) Urine Blood (Negative) Urine WBC (0-5) /hpf Urine WBC Clumps (None) /hpf Urine Bacteria (None) /hpf 07/23/17 07/23/17 07/23/17 Range/Units 08:01 11:28 11:39 D-Dimer (<0.60) mg/L FEU Sodium (137-145) mmol/L Potassium (3.5-5.1) mmol/L Chloride (98-107) mmol/L Carbon Dioxide (22-30) mmol/L BUN (9-20) mg/dL Creatinine (0.66-1.25) mg/dL Glucose (74-99) mg/dL POC Glucose (mg/dL) 133 H 100 H (75-99) mg/dL Calcium (8.4-10.2) mg/dL Total Bilirubin (0.2-1.3) mg/dL Total Protein (6.3-8.2) g/dL Albumin (3.5-5.0) g/dL Urine Protein 3+ H (Negative) Urine Glucose (UA) Trace H (Negative) Urine Blood Small H (Negative) Urine WBC 6 H (0-5) /hpf Urine WBC Clumps Many H (None) /hpf Urine Bacteria Rare H (None) /hpf 07/23/17 07/23/17 07/23/17 Range/Units 17:12 17:40 20:42 D-Dimer (<0.60) mg/L FEU Sodium 134 L (137-145) mmol/L Potassium 5.9 H (3.5-5.1) mmol/L Chloride (98-107) mmol/L Carbon Dioxide (22-30) mmol/L BUN 72 H (9-20) mg/dL Creatinine 2.13 H (0.66-1.25) mg/dL Glucose 111 H (74-99) mg/dL POC Glucose (mg/dL) 139 H 146 H (75-99) mg/dL Calcium 8.1 L (8.4-10.2) mg/dL Total Bilirubin <0.1 L (0.2-1.3) mg/dL Total Protein 4.7 L (6.3-8.2) g/dL Albumin 2.3 L (3.5-5.0) g/dL Urine Protein (Negative) Urine Glucose (UA) (Negative) Urine Blood (Negative) Urine WBC (0-5) /hpf Urine WBC Clumps (None) /hpf Urine Bacteria (None) /hpf Microbiology - Last 24 Hours (Table) 07/21/17 11:27 Blood Culture - Preliminary Blood No Growth after 48 hours Assessment and Plan Assessment: 1 acute COPD exacerbation with tracheobronchitis #2 elevated BNP at 3200. Possible new onset CHF. Diastolic dysfunction. Right heart failure. #3 acute kidney injury. Most likely prerenal with the diuresis and also obstructive uropathy. DCed Lasix #4 left femoral artery thrombus. No DVT 5 nicotine addiction #6 hypothyroidism. His history of radioactive iron treatment #7 moderate probable for PE on VQ scan #8 urinary retention. Patient was placed on Sánchez catheter #9 hyperkalemia due to acute kidney injury. Plan: Patient will be continued on breathing treatments and IV steroids. Continued antibiotics in the form of ceftriaxone and azithromycin. Cardiology and pulmonary has been consulted. Due to femoral thrombus patient will be started on anticoagulation with Lovenox and appreciate further recommendations from cardiology. Continue to monitor renal function. Continue with thyroid supplements. Will follow closely. Time with Patient: Greater than 30
[2017-07-24 05:15] LABS: Basophils % (A) 0 %; CH 30.7; CHCM 31.7; Eosinophils % (A) 0 %; HCT 38.7 % (39.0-53.0); HDW 2.34; HGB 12.5 gm/dL (13.0-17.5); Luc # (Auto) 0.14; Luc % (Auto) 1; Lymphocytes # (A) 0.9 k/uL (1.0-4.8); Lymphocytes % (A) 8 %; MCH 31.4 pg (25.0-35.0); MCHC 32.2 g/dL (31.0-37.0); MCV 97.5 fL (80.0-100.0); Mean Platelet Volume 8.6; Monocytes # (A) 0.9 k/uL (0-1.0); Monocytes % (A) 7 %; Neutrophils # (A) 9.6 k/uL (1.3-7.7); Neutrophils % (A) 83 %; RBC 3.97 m/uL (4.30-5.90); RDW 14.4 % (11.5-15.5); WBC 11.6 k/uL (3.8-10.6); WBC (Perox) 12.58
[2017-07-24 05:40] LABS: Calcium 7.9 mg/dL (8.4-10.2); Magnesium 2.7 mg/dL (1.6-2.3); Total Bilirubin 0.2 mg/dL (0.2-1.3); Total Protein 4.1 g/dL (6.3-8.2)
[2017-07-24] MEDS: LEVOTHYROXINE 75 MCG TAB PO SCH (06:39)
[2017-07-24] MEDS ORDERED: FUROSEMIDE 10 MG/ML 4 ML VIAL IV STA ×2 (06:48→15:03)
--- NOTE | 2017-07-24 06:53 | XR ---
EXAMINATION TYPE: XR chest 1V portable DATE OF EXAM: 07/24/2017 HISTORY: COPD exacerbation vs CHF. REFERENCE: Previous study dated 07/22/2017. FINDINGS: The lungs are overinflated. Heart size is upper limits of normal. Interstitial change has r esolved. IMPRESSION: 1. COPD. 2. RESOLVING CHANGES OF CONGESTIVE HEART FAILURE.
[2017-07-24 07:06] LABS: Glucose,Whole Blood 108 mg/dL (75-99)
[2017-07-24] MEDS: INSULIN LISPRO (humaLOG) 300 UNIT/3 ML VIAL SQ SCH ×4 (07:06→20:57)
[2017-07-24] MEDS: LORazepam 2 MG/ML INJ IV PRN ×2 (08:10→17:30)
[2017-07-24] MEDS: SODIUM CHLORIDE 0.9% 1,000 ML IV SCH ×2 (08:13→20:57)
[2017-07-24] MEDS: ENOXAPARIN 60 MG/0.6 ML SYRINGE SQ SCH (08:13)
[2017-07-24] MEDS: AZITHROMYCIN 500 MG TAB PO SCH (08:14)
[2017-07-24] MEDS: DILTIAZEM ORAL 30 MG TAB PO SCH ×3 (08:14→20:58)
[2017-07-24] MEDS: ASPIRIN 81 MG PO SCH (08:14)
[2017-07-24] MEDS: SODIUM BICARBONATE TAB 650 MG TAB PO SCH ×2 (08:14→20:57)
[2017-07-24] MEDS: methylPREDNISolone SOD SUCCI 125 MG/2 ML VIAL IV SCH ×4 (08:16→23:31)
[2017-07-24] MEDS: cefTRIAXone IN SWFI 1,000 MG/10 ML SYRINGE IVP SCH (08:16)
[2017-07-24] MEDS: BUDESONIDE 0.5 MG/2 ML NEBU INHALATION SCH ×2 (08:27→18:53)
[2017-07-24] MEDS: IPRATROPIUM-ALBUTEROL 3 ML NEB INHALATION SCH ×4 (08:27→18:52)
[2017-07-24] MEDS: FORMOTEROL FUMARATE 20 MCG/2 ML NEBU INHALATION SCH ×2 (08:27→18:53)
[2017-07-24] MEDS ORDERED: DEXTROSE 50%-WATER 50 ML SYRINGE IVP STA ×3 (08:31→23:07)
[2017-07-24] MEDS ORDERED: INSULIN REGULAR 100 UNIT/ML VIAL IV ONE ×3 (08:31→23:08)
--- NOTE | 2017-07-24 08:31 | P.PN ---
Subjective Progress Note Date: 07/24/17 67-old male patient, a chronic smoker, with known history of COPD whereas been followed up at the [facility] [place]. The patient is maintained on a combination of Spiriva and Symbicort. During his last evaluation, the patient was checked for oxygen supplementation patient was not found to qualify as to maintain a saturation above 90%. The patient lives alone in apartment on [address] The patient is chronically short of breath however he has been able to manage well, live independently and perform activities of daily today life without any major difficulties. He is a COPD exacerbation was approximately 6 months ago and this was treated and outpatient basis with a combination of antibiotics and steroids. Over the past week, the patient became progressively worse in terms of his breathing and he became short of breath, developed congested cough and sputum production and increased bronchospasm wheezing. He also noted increased lower extremity swelling. No previous history of DVT or pulmonary embolism. No previous history of congestion heart failure. No angina. No palpitations. He had missed a smoker half pack of cigarettes on a daily basis. He had a chest x-ray here in the hospital that showed pulmonary vessel congestion and small right-sided pleural effusion in addition to a hyperinflation consistent with COPD. His BNP level is elevated at 3200. First set of cardiac enzyme including CPK was normal and the troponin was at 0.013. Coagulation profile is within normal limits. On 07/23/2017 I'm seeing this patient for a follow-up. The patient got moved to the intensive care unit earlier this morning as the patient was getting progressively more short of breath. He was very anxious and he was unable to lay down in bed because of increased shortness of breath. At that point the patient got transferred to the intensive care unit. He was placed on the BiPAP at a pressure of 10/5 cm of water. He was also given a dose of Ativan which helped him with his anxiety and shortness of breath. The patient tells that he is unable to tolerate systemic steroids because makes him agitated and restless and for that reason I will switch this patient from IV Solu Medrol to high-dose oral prednisone starting with 60 mg on a daily basis. He is still on bronchodilators and he'll be placed on a combination of Perforomist and Pulmicort neb last 2 minutes twice a day in addition to DuoNeb the breast units 4 times a day. He is on empiric antibiotic coverage. His chest x-ray still showing some small bilateral pleural effusions. VQ scan was of indeterminate probability for pulmonary embolism. The patient Doppler of the lower extremity that showed no venous Doppler/DVT yet there was an arterial subocclusive clot at the left femoral artery. On examination the patient has palpable pulses in the femoral area and pulses in the distal lower extremities are diminished and there obtained by Doppler. He denies having any claudication. The feet are warm bilaterally. The patient continues to have some chronic edema lower extremities bilaterally. No angina. He was having some urinary retention his creatinine is up to 1.98 on the patient is also developed a component of hyperkalemia with a potassium level of 6.1.. We further came to find out that the patient was having difficulty in urination and his bladder scan showed urinary retention and the patient had a Sánchez catheter inserted immediately. On 07/24/2017 the patient remains short of breath anxious and having difficulty breathing. He still has to be supported with BiPAP which is helping his acute COPD exacerbation is stabilizing his COPD exacerbation. He is also an acute kidney injury. Creatinine is on the rise. A Sánchez catheter was inserted. There is no evidence of hydronephrosis. Urine output is diminished and the patient was given more fluids yesterday. No signs of any significant fluid overload. He has chronic lower extremities edema which remains unchanged. No chest pain. No fever or chills. No change in mental status. I took him off the IV Solu Medrol and put him on oral prednisone due to reported side effects to Solu-Medrol. I think it's crucial to put him back on Solu-Medrol and will monitor for any potential side effects of this point. The parotids on the case regarding acute kidney injury. Chest x-ray from today shows hyperinflation without any signs of any fluid overload. No nausea. No vomiting. No diarrhea. No abdominal pain. Objective - Vital Signs Vital signs: Vital Signs Temp 97.8 F 07/24/17 04:00 Pulse 80 07/24/17 07:00 Resp 15 07/24/17 07:00 BP 149/81 07/24/17 07:00 Pulse Ox 95 07/24/17 07:00 Intake & Output 07/23/17 07/24/17 07/24/17 19:59 06:59 18:59 Intake Total 75 Output Total 25 Balance 50 Weight Intake: IV 75 Sodium Chloride 0.9% 1, 75 000 ml @ 75 mls/hr IV . [id number] [facility] Rx#:[id number] Intake, IV Titration Amount Sodium Chloride 0.9% 1, 000 ml @ 20 mls/hr IV . Q24H [facility] Rx#:[id number] Sodium Chloride 0.9% 1, 000 ml @ 75 mls/hr IV . [id number] [facility] Rx#:[id number] cefTRIAXone 1,000 mg In Sodium Chloride 0.9% 50 ml @ 100 mls/hr IVPB Q24HR [facility] Rx#:[id number] Oral Output: Urine 25 Other: Voiding Method # Voids # Bowel Movements - Exam Gen. appearance the patient is then and frail and malnourished and mild degree of respiratory distress.the patient is currently on BiPAP for respiratory support and is able to tolerate a full face BiPAP mask without any major difficulties. Head exam was generally normal. There was no scleral icterus or corneal arcus. Mucous membranes were moist.Neck was supple and without jugular venous distension, thyromegaly, or carotid bruits. Carotids were easily palpable bilaterally. There was no adenopathy. The patient has a barrel chest. Breath sounds are diminished bilaterally along with diffuse expiratory wheezes throughout the lung [place]. Heart sounds are distant, positive S1-S2, no cervical murmurs appreciated.Abdominal exam revealed normal bowel sounds. The abdomen was soft, non-tender, and without masses, organomegaly, or appreciable enlargement of the abdominal aorta. Extremities show +1 pitting edema and there is no cyanosis or clubbing at this point. The pulses are obtainable by Doppler signal. Neurologically the patient is awake and alert and there are no focal neurological deficits.Examination of the skin revealed no evidence of significant rashes, suspicious appearing nevi or other concerning lesions. - Labs CBC & Chem 7: 07/24/17 04:31 07/24/17 04:31 Labs: Abnormal Lab Results - Last 24 Hours (Table) 07/23/17 07/23/17 07/23/17 Range/Units 11:28 11:39 17:12 WBC (3.8-10.6) k/uL RBC (4.30-5.90) m/uL Hgb (13.0-17.5) gm/dL Hct (39.0-53.0) % Neutrophils # (1.3-7.7) k/uL Lymphocytes # (1.0-4.8) k/uL Sodium 134 L (137-145) mmol/L Potassium 5.9 H (3.5-5.1) mmol/L BUN 72 H (9-20) mg/dL Creatinine 2.13 H (0.66-1.25) mg/dL Glucose 111 H (74-99) mg/dL POC Glucose (mg/dL) 100 H (75-99) mg/dL Calcium 8.1 L (8.4-10.2) mg/dL Phosphorus (2.5-4.5) mg/dL Magnesium (1.6-2.3) mg/dL Total Bilirubin <0.1 L (0.2-1.3) mg/dL Total Protein 4.7 L (6.3-8.2) g/dL Albumin 2.3 L (3.5-5.0) g/dL Urine Protein 3+ H (Negative) Urine Glucose (UA) Trace H (Negative) Urine Blood Small H (Negative) Urine WBC 6 H (0-5) /hpf Urine WBC Clumps Many H (None) /hpf Urine Bacteria Rare H (None) /hpf 07/23/17 07/23/17 07/24/17 Range/Units 17:40 20:42 04:31 WBC 11.6 H (3.8-10.6) k/uL RBC 3.97 L (4.30-5.90) m/uL Hgb 12.5 L (13.0-17.5) gm/dL Hct 38.7 L (39.0-53.0) % Neutrophils # 9.6 H (1.3-7.7) k/uL Lymphocytes # 0.9 L (1.0-4.8) k/uL Sodium (137-145) mmol/L Potassium (3.5-5.1) mmol/L BUN (9-20) mg/dL Creatinine (0.66-1.25) mg/dL Glucose (74-99) mg/dL POC Glucose (mg/dL) 139 H 146 H (75-99) mg/dL Calcium (8.4-10.2) mg/dL Phosphorus (2.5-4.5) mg/dL Magnesium (1.6-2.3) mg/dL Total Bilirubin (0.2-1.3) mg/dL Total Protein (6.3-8.2) g/dL Albumin (3.5-5.0) g/dL Urine Protein (Negative) Urine Glucose (UA) (Negative) Urine Blood (Negative) Urine WBC (0-5) /hpf Urine WBC Clumps (None) /hpf Urine Bacteria (None) /hpf 07/24/17 07/24/17 Range/Units 04:31 07:04 WBC (3.8-10.6) k/uL RBC (4.30-5.90) m/uL Hgb (13.0-17.5) gm/dL Hct (39.0-53.0) % Neutrophils # (1.3-7.7) k/uL Lymphocytes # (1.0-4.8) k/uL Sodium 132 L (137-145) mmol/L Potassium 6.0 H (3.5-5.1) mmol/L BUN 88 H* (9-20) mg/dL Creatinine 2.40 H (0.66-1.25) mg/dL Glucose 131 H (74-99) mg/dL POC Glucose (mg/dL) 108 H (75-99) mg/dL Calcium 7.9 L (8.4-10.2) mg/dL Phosphorus 6.0 H (2.5-4.5) mg/dL Magnesium 2.7 H (1.6-2.3) mg/dL Total Bilirubin (0.2-1.3) mg/dL Total Protein 4.1 L (6.3-8.2) g/dL Albumin 2.0 L (3.5-5.0) g/dL Urine Protein (Negative) Urine Glucose (UA) (Negative) Urine Blood (Negative) Urine WBC (0-5) /hpf Urine WBC Clumps (None) /hpf Urine Bacteria (None) /hpf Microbiology - Last 24 Hours (Table) 07/23/17 11:28 Urine Culture - Preliminary Urine,Catheterized 07/21/17 11:27 Blood Culture - Preliminary Blood No Growth after 48 hours Assessment and Plan Plan: Assessment 1 acute COPD exacerbation with secondary shortness of breath. He more short of breath overnight and Subsequently more anxious. He was moved to the intensive care unit where he was started on a BiPAP treatment for respiratory support. On 07/24/2017, the patient remains bronchospastic and wheezy. The patient remains short of breath on BiPAP dependent. We'll restart Solu-Medrol. No much progress in terms of his breathing over the past 24 hours. Anxiety levels remain high and the patient is on a combination of Ativan and morphine. The blood gases from today shows a component of both metabolic and respiratory acidosis. His pH is at 7.33. PCO2 is at 45 and his serum bicarb is 23. 2 CHF , essentially right-sided heart failure with significant edema in lower extremities bilaterally. 3 acute kidney injury, initially thought that this was a obstructive uropathy at a Sánchez catheter was inserted and the patient has no evidence of any hydronephrosis. Suspect an underlying ATN. Potassium level is slightly elevated at 6.0. No EKG changes. 4 chronic smoker 5. Hyperthyroidism status post radioactive iodine treatment, his subsequent TSH level is elevated. 6 peripheral vascular disease with a atherosclerotic segment of the left femoral artery without evidence of any acute vascular insufficiency at this point. The patient was also seen by Dr. Wood from cardiology. Plan Continue the saline at 75 mL an hour. May use Lasix to improve his urine output and oriented of ANY signs of fluid overload. Lower extremity edema is chronic. No evidence of any acute pulmonary edema or pulmonary vessel congestion at this point. The patient is well-appearing acute kidney injury. Potassium level is up to 6.0 and the creatinine is up to 2.4. We'll try to shift potassium intracellular by giving this patient an amp of D50 with 10 units of insulin. He is on oral bicarbonate this point. We'll monitor the potassium level. There is no evidence of any cardiac toxicity at this point. We will switch the Lovenox to prophylactic dose. We'll continue to follow make further recommendations. My suggestion is to switch this patient IV Solu Medrol monitor side effects and toxicities if any. Continue BiPAP for respiratory support. Continue bronchodilators. Continue antibiotics. Keep in ICU and continue BiPAP for respiratory support. Increased risk of developing respiratory failure requiring intubation mechanical ventilation the patient was made aware of that.
[2017-07-24 08:54] LABS: ABG Base Excess -1.8 mmol/L; ABG HCO3 23 mmol/L (21-25); ABG Oxygen Saturation 93.2 % (94-97); ABG PCO2 46 mmHg (35-45); ABG PH 7.33 (7.35-7.45); ABG PO2 73 mmHg (83-108); ABG TCO2 25 mmol/L (19-24)
--- NOTE | 2017-07-24 10:16 | P.PN ---
Subjective Progress Note Date: 07/24/17 Principal diagnosis: Acute kidney injury Still on BiPAP. Urine output dropped in the middle of the night to 15 mL/ hour and fluids were started at 75 mL an hour. This morning Lasix was given at 8:00 am and he made 50 mL of urine in an hour. He admits to taking ibuprofen 600 mg 2-3 times a day. No history of diabetes. He has hypertension but not on any medications at home. Unknown duration of uncontrolled hypertension. Objective - Vital Signs Vital signs: Vital Signs Temp 97.8 F 07/24/17 04:00 Pulse 92 07/24/17 08:59 Resp 15 07/24/17 07:00 BP 149/81 07/24/17 07:00 Pulse Ox 95 07/24/17 07:00 Intake & Output 07/23/17 07/24/17 07/24/17 19:59 06:59 18:59 Intake Total 75 Output Total 25 Balance 50 Weight Intake: IV 75 Sodium Chloride 0.9% 1, 75 000 ml @ 75 mls/hr IV . [id number] [facility] Rx#:[id number] Intake, IV Titration Amount Sodium Chloride 0.9% 1, 000 ml @ 20 mls/hr IV . Q24H [facility] Rx#:[id number] Sodium Chloride 0.9% 1, 000 ml @ 75 mls/hr IV . [id number] [facility] Rx#:[id number] cefTRIAXone 1,000 mg In Sodium Chloride 0.9% 50 ml @ 100 mls/hr IVPB Q24HR [facility] Rx#:[id number] Oral Output: Urine 25 Other: Voiding Method # Voids # Bowel Movements - Exam No acute distress Diminished breath sounds bilaterally S1-S2 heard Sánchez draining urine Trace edema - Labs CBC & Chem 7: 07/24/17 04:31 07/24/17 04:31 Labs: Abnormal Lab Results - Last 24 Hours (Table) 07/23/17 07/23/17 07/23/17 Range/Units 11:28 11:39 17:12 WBC (3.8-10.6) k/uL RBC (4.30-5.90) m/uL Hgb (13.0-17.5) gm/dL Hct (39.0-53.0) % Neutrophils # (1.3-7.7) k/uL Lymphocytes # (1.0-4.8) k/uL ABG pH (7.35-7.45) ABG pCO2 (35-45) mmHg ABG pO2 (83-108) mmHg ABG Total CO2 (19-24) mmol/L ABG O2 Saturation (94-97) % Sodium 134 L (137-145) mmol/L Potassium 5.9 H (3.5-5.1) mmol/L BUN 72 H (9-20) mg/dL Creatinine 2.13 H (0.66-1.25) mg/dL Glucose 111 H (74-99) mg/dL POC Glucose (mg/dL) 100 H (75-99) mg/dL Calcium 8.1 L (8.4-10.2) mg/dL Phosphorus (2.5-4.5) mg/dL Magnesium (1.6-2.3) mg/dL Total Bilirubin <0.1 L (0.2-1.3) mg/dL Total Protein 4.7 L (6.3-8.2) g/dL Albumin 2.3 L (3.5-5.0) g/dL Urine Protein 3+ H (Negative) Urine Glucose (UA) Trace H (Negative) Urine Blood Small H (Negative) Urine WBC 6 H (0-5) /hpf Urine WBC Clumps Many H (None) /hpf Urine Bacteria Rare H (None) /hpf 07/23/17 07/23/17 07/24/17 Range/Units 17:40 20:42 04:31 WBC 11.6 H (3.8-10.6) k/uL RBC 3.97 L (4.30-5.90) m/uL Hgb 12.5 L (13.0-17.5) gm/dL Hct 38.7 L (39.0-53.0) % Neutrophils # 9.6 H (1.3-7.7) k/uL Lymphocytes # 0.9 L (1.0-4.8) k/uL ABG pH (7.35-7.45) ABG pCO2 (35-45) mmHg ABG pO2 (83-108) mmHg ABG Total CO2 (19-24) mmol/L ABG O2 Saturation (94-97) % Sodium (137-145) mmol/L Potassium (3.5-5.1) mmol/L BUN (9-20) mg/dL Creatinine (0.66-1.25) mg/dL Glucose (74-99) mg/dL POC Glucose (mg/dL) 139 H 146 H (75-99) mg/dL Calcium (8.4-10.2) mg/dL Phosphorus (2.5-4.5) mg/dL Magnesium (1.6-2.3) mg/dL Total Bilirubin (0.2-1.3) mg/dL Total Protein (6.3-8.2) g/dL Albumin (3.5-5.0) g/dL Urine Protein (Negative) Urine Glucose (UA) (Negative) Urine Blood (Negative) Urine WBC (0-5) /hpf Urine WBC Clumps (None) /hpf Urine Bacteria (None) /hpf 07/24/17 07/24/17 07/24/17 Range/Units 04:31 07:04 08:18 WBC (3.8-10.6) k/uL RBC (4.30-5.90) m/uL Hgb (13.0-17.5) gm/dL Hct (39.0-53.0) % Neutrophils # (1.3-7.7) k/uL Lymphocytes # (1.0-4.8) k/uL ABG pH 7.33 L (7.35-7.45) ABG pCO2 46 H (35-45) mmHg ABG pO2 73 L (83-108) mmHg ABG Total CO2 25 H (19-24) mmol/L ABG O2 Saturation 93.2 L (94-97) % Sodium 132 L (137-145) mmol/L Potassium 6.0 H (3.5-5.1) mmol/L BUN 88 H* (9-20) mg/dL Creatinine 2.40 H (0.66-1.25) mg/dL Glucose 131 H (74-99) mg/dL POC Glucose (mg/dL) 108 H (75-99) mg/dL Calcium 7.9 L (8.4-10.2) mg/dL Phosphorus 6.0 H (2.5-4.5) mg/dL Magnesium 2.7 H (1.6-2.3) mg/dL Total Bilirubin (0.2-1.3) mg/dL Total Protein 4.1 L (6.3-8.2) g/dL Albumin 2.0 L (3.5-5.0) g/dL Urine Protein (Negative) Urine Glucose (UA) (Negative) Urine Blood (Negative) Urine WBC (0-5) /hpf Urine WBC Clumps (None) /hpf Urine Bacteria (None) /hpf Microbiology - Last 24 Hours (Table) 07/23/17 11:28 Urine Culture - Preliminary Urine,Catheterized 07/21/17 11:27 Blood Culture - Preliminary Blood No Growth after 48 hours Assessment and Plan Assessment: Assessment: #1 acute kidney injury, nonoliguric with marginal urine output. Possibilities include a) normotensive hemodynamic ATN. b) cardiorenal syndrome secondary to right-sided heart failure. c) obstructive uropathy. #2 proteinuria on UA, with no history of diabetes. Rule out nephrotic syndrome primary or secondary causes. #3 hyperphosphatemia secondary to #1. #4 hyperkalemia secondary to #1. #5 acute respiratory failure on BiPAP. Recommendations: #1 no obstruction on ultrasound kidneys. Creatinine creeping with high BUNs. Relatively high BUNs and could be secondary to steroid use. #2 he did respond to IV Lasix. Repeat BMP in the afternoon and monitor I's and O's. #3 currently on IV fluids normal saline, as per ICU team. #4 workup for proteinuria including hepatitis B and C, serum free light chain and protein electrophoresis as well as quantification of proteinuria. #5 add Renvela for hyperphosphatemia and medical treatment for hyperkalemia. Will follow-up with repeat BMP and urine output for further recommendations.
[2017-07-24 12:05] LABS: Glucose,Whole Blood 108 mg/dL (75-99)
[2017-07-24] MEDS: SEVELAMER 800 MG TAB PO SCH ×2 (12:26→17:29)
[2017-07-24 14:20] LABS: Calcium 7.8 mg/dL (8.4-10.2)
--- NOTE | 2017-07-24 14:22 | P.PN ---
Subjective Principal diagnosis: Peripheral edema This is a pleasant 67-year-old gentleman with a past medical history significant for advanced chronic obstructive pulmonary disease who is also a chronic tobacco user was admitted to the hospital with dyspnea. We get involved in the care of the patient recalls of bilateral lower extremities edema. The patient did not have any symptoms of chest pain or chest discomfort , dizziness or lightheadedness, or syncope. The patient was started on Lasix IV yesterday for the peripheral edema. He he was transferred to the intensive care unit yesterday because he was quite dyspneic. On follow-up with the patient today, he continues to be in mild respiratory distress. He still have bilateral lower extremities edema. Beside that he is tachycardia has improved after I did start the patient on Cardizem by mouth. Objective - Vital Signs Vital signs: Vital Signs Temp 98.4 F 07/24/17 12:00 Pulse 95 07/24/17 13:00 Resp 19 07/24/17 13:00 BP 146/69 07/24/17 13:00 Pulse Ox 94 L 07/24/17 13:00 Intake & Output 07/23/17 07/24/17 07/24/17 19:59 06:59 18:59 Intake Total 645 Output Total 260 Balance 385 Weight Intake: IV 525 Sodium Chloride 0.9% 1, 525 000 ml @ 75 mls/hr IV . [id number] [facility] Rx#:[id number] Intake, IV Titration Amount Sodium Chloride 0.9% 1, 000 ml @ 20 mls/hr IV . Q24H [facility] Rx#:[id number] Sodium Chloride 0.9% 1, 000 ml @ 75 mls/hr IV . [id number] [facility] Rx#:[id number] cefTRIAXone 1,000 mg In Sodium Chloride 0.9% 50 ml @ 100 mls/hr IVPB Q24HR [facility] Rx#:[id number] Oral 120 Output: Urine 260 Other: Voiding Method Indwelling Catheter # Voids # Bowel Movements - Constitutional General appearance: Present: no acute distress - Respiratory Respiratory: bilateral: diminished - Cardiovascular Rhythm: regular Heart sounds: normal: S1, S2 - Labs CBC & Chem 7: 07/24/17 04:31 07/24/17 04:31 Labs: Abnormal Lab Results - Last 24 Hours (Table) 07/23/17 07/23/17 07/23/17 Range/Units 17:12 17:40 20:42 WBC (3.8-10.6) k/uL RBC (4.30-5.90) m/uL Hgb (13.0-17.5) gm/dL Hct (39.0-53.0) % Neutrophils # (1.3-7.7) k/uL Lymphocytes # (1.0-4.8) k/uL ABG pH (7.35-7.45) ABG pCO2 (35-45) mmHg ABG pO2 (83-108) mmHg ABG Total CO2 (19-24) mmol/L ABG O2 Saturation (94-97) % Sodium 134 L (137-145) mmol/L Potassium 5.9 H (3.5-5.1) mmol/L BUN 72 H (9-20) mg/dL Creatinine 2.13 H (0.66-1.25) mg/dL Glucose 111 H (74-99) mg/dL POC Glucose (mg/dL) 139 H 146 H (75-99) mg/dL Calcium 8.1 L (8.4-10.2) mg/dL Phosphorus (2.5-4.5) mg/dL Magnesium (1.6-2.3) mg/dL Total Bilirubin <0.1 L (0.2-1.3) mg/dL Total Protein 4.7 L (6.3-8.2) g/dL Albumin 2.3 L (3.5-5.0) g/dL U Random Total Protein (<12) mg/dL 07/24/17 07/24/17 07/24/17 Range/Units 04:31 04:31 07:04 WBC 11.6 H (3.8-10.6) k/uL RBC 3.97 L (4.30-5.90) m/uL Hgb 12.5 L (13.0-17.5) gm/dL Hct 38.7 L (39.0-53.0) % Neutrophils # 9.6 H (1.3-7.7) k/uL Lymphocytes # 0.9 L (1.0-4.8) k/uL ABG pH (7.35-7.45) ABG pCO2 (35-45) mmHg ABG pO2 (83-108) mmHg ABG Total CO2 (19-24) mmol/L ABG O2 Saturation (94-97) % Sodium 132 L (137-145) mmol/L Potassium 6.0 H (3.5-5.1) mmol/L BUN 88 H* (9-20) mg/dL Creatinine 2.40 H (0.66-1.25) mg/dL Glucose 131 H (74-99) mg/dL POC Glucose (mg/dL) 108 H (75-99) mg/dL Calcium 7.9 L (8.4-10.2) mg/dL Phosphorus 6.0 H (2.5-4.5) mg/dL Magnesium 2.7 H (1.6-2.3) mg/dL Total Bilirubin (0.2-1.3) mg/dL Total Protein 4.1 L (6.3-8.2) g/dL Albumin 2.0 L (3.5-5.0) g/dL U Random Total Protein (<12) mg/dL 07/24/17 07/24/17 07/24/17 Range/Units 08:18 11:30 12:02 WBC (3.8-10.6) k/uL RBC (4.30-5.90) m/uL Hgb (13.0-17.5) gm/dL Hct (39.0-53.0) % Neutrophils # (1.3-7.7) k/uL Lymphocytes # (1.0-4.8) k/uL ABG pH 7.33 L (7.35-7.45) ABG pCO2 46 H (35-45) mmHg ABG pO2 73 L (83-108) mmHg ABG Total CO2 25 H (19-24) mmol/L ABG O2 Saturation 93.2 L (94-97) % Sodium (137-145) mmol/L Potassium (3.5-5.1) mmol/L BUN (9-20) mg/dL Creatinine (0.66-1.25) mg/dL Glucose (74-99) mg/dL POC Glucose (mg/dL) 108 H (75-99) mg/dL Calcium (8.4-10.2) mg/dL Phosphorus (2.5-4.5) mg/dL Magnesium (1.6-2.3) mg/dL Total Bilirubin (0.2-1.3) mg/dL Total Protein (6.3-8.2) g/dL Albumin (3.5-5.0) g/dL U Random Total Protein 483 H (<12) mg/dL Microbiology - Last 24 Hours (Table) 07/23/17 11:28 Urine Culture - Preliminary Urine,Catheterized 07/21/17 11:27 Blood Culture - Preliminary Blood No Growth after 48 hours Assessment and Plan Assessment: This is a 67-year-old gentleman who was admitted to the hospital with dyspnea and COPD exacerbation. The heart rate and blood pressure have improved on the current dose of Cardizem by mouth. The echocardiogram was reviewed and revealed normal LV function without any significant valvular abnormalities.
[2017-07-24 14:33] LABS: Potassium 6.2 mmol/L (3.5-5.1)
[2017-07-24 17:26] LABS: Calcium 7.9 mg/dL (8.4-10.2); Potassium 5.8 mmol/L (3.5-5.1)
[2017-07-24 17:32] LABS: Glucose,Whole Blood 110 mg/dL (75-99)
[2017-07-24 20:58] LABS: Glucose,Whole Blood 394 mg/dL (75-99)
[2017-07-24 22:16] LABS: Potassium 6.1 mmol/L (3.5-5.1)
[2017-07-24] MEDS ORDERED: SODIUM POLYSTYRENE SULFONATE 15 GM/60 ML BOTTLE PO STA (23:06)
--- NOTE | 2017-07-24 23:33 | P.PN ---
Subjective Progress Note Date: 07/24/17 Principal diagnosis: Acute COPD exacerbation Patient is a 67-year-old male with a known history of COPD , hypothyroidism with history of radiation came to ER with complaints of worsening short of breath for the past 1 week. Patient also complained of cough with sputum production. Whitish to maury colored. No fever no chills. Patient was also having wheezing on admission seen currently. Patient otherwise denied any complaints of chest pain. Patient was also found to have mild leg swelling. Patient does not have a history of coronary artery disease. Patient follows with [facility] in [place]. Patient continues to smoke 1 pack per day. He had a chest x-ray here in the hospital that showed pulmonary vessel congestion and small right-sided pleural effusion in addition to a hyperinflation consistent with COPD. His BNP level is elevated at 3200. First set of cardiac enzyme including CPK was normal and the troponin was at 0.013. Coagulation profile is within normal limits. 07/23/2017 Patient went into respiratory distress this morning and was placed on BiPAP machine. Patient was transferred to MICU. Currently patient is on and maintaining saturation. Patient was found to have acute kidney injury and hyperkalemia today. Patient had urinary retention and possible obstructive acute kidney injury. Patient was placed on Sánchez catheter now and is maintaining good urine output. Patient had VQ scan showing moderate probable for PE. Patient is maintained on Lovenox for left femoral partial thrombus. Maintaining good arterial blood flow. Patient does not have any fever or chills. No nausea vomiting no diarrhea. All other review of systems negative except as above. 07/24/2017 Patient is still having shortness of breath and requiring BiPAP intermittently. Patient is also hyperkalemic and worsening renal function. Patient has been afebrile. Denied any chest pain. Chest x-ray showed a showed resolving findings of CHF. Due to worsening renal function and decreased urine output patient was started on IV fluids as well. All other review of systems negative except the above Current medications reviewed Objective - Vital Signs Vital signs: Vital Signs Temp 98.4 F 07/24/17 12:00 Pulse 89 07/24/17 22:00 Resp 17 07/24/17 22:00 BP 151/85 07/24/17 22:00 Pulse Ox 97 07/24/17 22:00 Intake & Output 07/24/17 07/24/17 07/25/17 06:59 18:59 06:59 Intake Total 1095 325 Output Total 480 105 Balance 615 220 Weight Intake: IV 975 225 Sodium Chloride 0.9% 1, 975 225 000 ml @ 75 mls/hr IV . [id number] [facility] Rx#:[id number] Oral 120 100 Output: Urine 480 105 Other: Voiding Method Indwelling Catheter Indwelling Catheter - Exam PHYSICAL EXAMINATION: Patient is lying in the bed comfortably, no acute distress, awake alert and oriented.. On BiPAP HEENT: Normocephalic. Neck is supple. Pupils reactive. Nostrils clear. Oral cavity is moist. Ears reveal no drainage. Neck reveals no JVD, carotid bruits, or thyromegaly. CHEST EXAMINATION: Trachea is central. Symmetrical expansion. Bilateral diffuse wheezing present and diminished air entry. No rhonchi no crackles. CARDIAC: Normal S1, S2 with no gallops. No murmurs ABDOMEN: Soft. Bowel sounds normal. No organomegaly. No abdominal bruits. Extremities: 1+ edema. No clubbing or cyanosis Neurologically awake, alert, oriented x3 with well-coordinated movements. No focal deficits noted Skin: No rash or skin lesions. Psychiatric: coOperative. Nonsuicidal Musculoskeletal: No joint swelling or deformity. Normal range of motion. - Labs CBC & Chem 7: 07/24/17 04:31 07/24/17 21:24 Labs: Abnormal Lab Results - Last 24 Hours (Table) 07/24/17 07/24/17 07/24/17 Range/Units 04:31 04:31 07:04 WBC 11.6 H (3.8-10.6) k/uL RBC 3.97 L (4.30-5.90) m/uL Hgb 12.5 L (13.0-17.5) gm/dL Hct 38.7 L (39.0-53.0) % Neutrophils # 9.6 H (1.3-7.7) k/uL Lymphocytes # 0.9 L (1.0-4.8) k/uL ABG pH (7.35-7.45) ABG pCO2 (35-45) mmHg ABG pO2 (83-108) mmHg ABG Total CO2 (19-24) mmol/L ABG O2 Saturation (94-97) % Sodium 132 L (137-145) mmol/L Potassium 6.0 H (3.5-5.1) mmol/L Chloride (98-107) mmol/L BUN 88 H* (9-20) mg/dL Creatinine 2.40 H (0.66-1.25) mg/dL Glucose 131 H (74-99) mg/dL POC Glucose (mg/dL) 108 H (75-99) mg/dL Calcium 7.9 L (8.4-10.2) mg/dL Phosphorus 6.0 H (2.5-4.5) mg/dL Magnesium 2.7 H (1.6-2.3) mg/dL Total Protein 4.1 L (6.3-8.2) g/dL Albumin 2.0 L (3.5-5.0) g/dL U Random Total Protein (<12) mg/dL 07/24/17 07/24/17 07/24/17 Range/Units 08:18 11:30 12:02 WBC (3.8-10.6) k/uL RBC (4.30-5.90) m/uL Hgb (13.0-17.5) gm/dL Hct (39.0-53.0) % Neutrophils # (1.3-7.7) k/uL Lymphocytes # (1.0-4.8) k/uL ABG pH 7.33 L (7.35-7.45) ABG pCO2 46 H (35-45) mmHg ABG pO2 73 L (83-108) mmHg ABG Total CO2 25 H (19-24) mmol/L ABG O2 Saturation 93.2 L (94-97) % Sodium (137-145) mmol/L Potassium (3.5-5.1) mmol/L Chloride (98-107) mmol/L BUN (9-20) mg/dL Creatinine (0.66-1.25) mg/dL Glucose (74-99) mg/dL POC Glucose (mg/dL) 108 H (75-99) mg/dL Calcium (8.4-10.2) mg/dL Phosphorus (2.5-4.5) mg/dL Magnesium (1.6-2.3) mg/dL Total Protein (6.3-8.2) g/dL Albumin (3.5-5.0) g/dL U Random Total Protein 483 H (<12) mg/dL 07/24/17 07/24/17 07/24/17 Range/Units 13:46 16:45 17:30 WBC (3.8-10.6) k/uL RBC (4.30-5.90) m/uL Hgb (13.0-17.5) gm/dL Hct (39.0-53.0) % Neutrophils # (1.3-7.7) k/uL Lymphocytes # (1.0-4.8) k/uL ABG pH (7.35-7.45) ABG pCO2 (35-45) mmHg ABG pO2 (83-108) mmHg ABG Total CO2 (19-24) mmol/L ABG O2 Saturation (94-97) % Sodium 135 L 136 L (137-145) mmol/L Potassium 6.2 H* 5.8 H (3.5-5.1) mmol/L Chloride 108 H (98-107) mmol/L BUN 92 H* 94 H* (9-20) mg/dL Creatinine 2.45 H 2.50 H (0.66-1.25) mg/dL Glucose 130 H 63 L (74-99) mg/dL POC Glucose (mg/dL) 110 H (75-99) mg/dL Calcium 7.8 L 7.9 L (8.4-10.2) mg/dL Phosphorus (2.5-4.5) mg/dL Magnesium (1.6-2.3) mg/dL Total Protein (6.3-8.2) g/dL Albumin (3.5-5.0) g/dL U Random Total Protein (<12) mg/dL 07/24/17 07/24/17 Range/Units 20:56 21:24 WBC (3.8-10.6) k/uL RBC (4.30-5.90) m/uL Hgb (13.0-17.5) gm/dL Hct (39.0-53.0) % Neutrophils # (1.3-7.7) k/uL Lymphocytes # (1.0-4.8) k/uL ABG pH (7.35-7.45) ABG pCO2 (35-45) mmHg ABG pO2 (83-108) mmHg ABG Total CO2 (19-24) mmol/L ABG O2 Saturation (94-97) % Sodium 134 L (137-145) mmol/L Potassium 6.1 H (3.5-5.1) mmol/L Chloride (98-107) mmol/L BUN 98 H* (9-20) mg/dL Creatinine 2.60 H (0.66-1.25) mg/dL Glucose 180 H (74-99) mg/dL POC Glucose (mg/dL) 394 H (75-99) mg/dL Calcium 8.0 L (8.4-10.2) mg/dL Phosphorus (2.5-4.5) mg/dL Magnesium (1.6-2.3) mg/dL Total Protein (6.3-8.2) g/dL Albumin (3.5-5.0) g/dL U Random Total Protein (<12) mg/dL Microbiology - Last 24 Hours (Table) 07/23/17 11:28 Urine Culture - Final Urine,Catheterized 07/21/17 11:27 Blood Culture - Preliminary Blood No Growth after 72 hours Assessment and Plan Assessment: 1 acute COPD exacerbation with tracheobronchitis #2 elevated BNP at 3200. Possible new onset CHF. Diastolic dysfunction. Right heart failure. #3 acute kidney injury. Nonoliguric. Possible ATN, cardiorenal and also obstructive uropathy. #4 left femoral artery thrombus. No DVT 5 nicotine addiction #6 hypothyroidism. His history of radioactive iron treatment #7 moderate probable for PE on VQ scan #8 urinary retention. Patient was placed on Sánchez catheter #9 hyperkalemia and hyperphosphatemia due to acute kidney injury. #10 significant proteinuria. No history of diabetes . possible nephrotic syndrome. Plan: Patient will be continued on breathing treatments and IV steroids. Continue with Pulmicort and formoterol. Continued antibiotics in the form of ceftriaxone and azithromycin. Cardiology and pulmonary and nephrology is following. Due to femoral thrombus patient will be started on anticoagulation with Lovenox . Continue to monitor renal function. Continue with thyroid supplements. Will follow closely. Prognosis is guarded. Time with Patient: Greater than 30
[2017-07-25] MEDS ORDERED: FAMOTIDINE 20 MG TAB PO STA (00:13)
[2017-07-25 04:52] LABS: Basophils % (A) 0 %; CH 31.6; CHCM 32.1; Eosinophils % (A) 0 %; HCT 42.1 % (39.0-53.0); HDW 2.43; HGB 13.4 gm/dL (13.0-17.5); Luc # (Auto) 0.05; Luc % (Auto) 1; Lymphocytes # (A) 0.6 k/uL (1.0-4.8); Lymphocytes % (A) 7 %; MCH 31.5 pg (25.0-35.0); MCHC 31.8 g/dL (31.0-37.0); MCV 99.1 fL (80.0-100.0); Mean Platelet Volume 7.6; Monocytes # (A) 0.4 k/uL (0-1.0); Monocytes % (A) 5 %; Neutrophils % (A) 88 %; RBC 4.25 m/uL (4.30-5.90); RDW 13.3 % (11.5-15.5); WBC 9.1 k/uL (3.8-10.6); WBC (Perox) 9.43
[2017-07-25 05:15] LABS: Magnesium 2.8 mg/dL (1.6-2.3); Phosphorus 4.6 mg/dL (2.5-4.5); Potassium 5.9 mmol/L (3.5-5.1); Total Bilirubin 0.1 mg/dL (0.2-1.3); Total Protein 4.3 g/dL (6.3-8.2)
[2017-07-25] MEDS: LEVOTHYROXINE 75 MCG TAB PO SCH (06:02)
[2017-07-25] MEDS: methylPREDNISolone SOD SUCCI 125 MG/2 ML VIAL IV SCH ×3 (06:02→18:34)
[2017-07-25 06:03] LABS: Glucose,Whole Blood 103 mg/dL (75-99)
[2017-07-25 06:03] LABS: Glucose,Whole Blood 258 mg/dL (75-99)
[2017-07-25] MEDS: INSULIN LISPRO (humaLOG) 300 UNIT/3 ML VIAL SQ SCH ×4 (07:13→20:59)
--- NOTE | 2017-07-25 07:20 | XR ---
EXAMINATION TYPE: XR chest 1V portable DATE OF EXAM: 07/25/2017 COMPARISON: 07/24/2017 HISTORY: Shortness of breath TECHNIQUE: Single view of the chest is submitted. FINDINGS: Scattered senescent parenchymal changes noted. Hyperinflation compatible with COPD. Patchy density right medial lung base may reflect atelectasis or infiltrate. Correlate clinically. Heart size is stable. Mediastinal structures are stable and grossly unremarkable. No evidence for hilar prominence. Degenerative changes dorsal spine. IMPRESSION: 1. Patchy density right medial lung base may reflect atelectasis or infiltrate. Correlate clinically.
--- NOTE | 2017-07-25 07:34 | P.PN ---
Subjective Principal diagnosis: Peripheral edema This is a pleasant 67-year-old gentleman with a past medical history significant for advanced chronic obstructive pulmonary disease who is also a chronic tobacco user was admitted to the hospital with dyspnea. We get involved in the care of the patient recalls of bilateral lower extremities edema. The patient did not have any symptoms of chest pain or chest discomfort , dizziness or lightheadedness, or syncope. The patient was started on Lasix IV yesterday for the peripheral edema. He he was transferred to the intensive care unit yesterday because he was quite dyspneic. On follow-up with the patient today, he continues to be in mild respiratory distress. He still have bilateral lower extremities edema. Beside that he is tachycardia has improved after I did start the patient on Cardizem by mouth. Objective - Vital Signs Vital signs: Vital Signs Temp 97.9 F 07/25/17 04:00 Pulse 87 07/25/17 07:00 Resp 30 H 07/25/17 07:00 BP 167/87 07/25/17 07:00 Pulse Ox 94 L 07/25/17 07:00 Intake & Output 07/24/17 07/25/17 07/25/17 18:59 06:59 18:59 Intake Total 1095 925 75 Output Total 480 345 30 Balance 615 580 45 Weight 62.4 kg Intake: IV 975 825 75 Sodium Chloride 0.9% 1, 975 825 75 000 ml @ 75 mls/hr IV . [id number] [facility] Rx#:[id number] Oral 120 100 Output: Urine 480 345 30 Other: Voiding Method Indwelling Catheter Indwelling Catheter - Constitutional General appearance: Present: no acute distress - Respiratory Respiratory: bilateral: diminished, wheezing - Cardiovascular Rhythm: regular Heart sounds: normal: S1, S2 - Labs CBC & Chem 7: 07/25/17 04:13 07/25/17 04:13 Labs: Abnormal Lab Results - Last 24 Hours (Table) 07/24/17 07/24/17 07/24/17 Range/Units 08:18 11:30 12:02 RBC (4.30-5.90) m/uL Neutrophils # (1.3-7.7) k/uL Lymphocytes # (1.0-4.8) k/uL ABG pH 7.33 L (7.35-7.45) ABG pCO2 46 H (35-45) mmHg ABG pO2 73 L (83-108) mmHg ABG Total CO2 25 H (19-24) mmol/L ABG O2 Saturation 93.2 L (94-97) % Sodium (137-145) mmol/L Potassium (3.5-5.1) mmol/L Chloride (98-107) mmol/L BUN (9-20) mg/dL Creatinine (0.66-1.25) mg/dL Glucose (74-99) mg/dL POC Glucose (mg/dL) 108 H (75-99) mg/dL Calcium (8.4-10.2) mg/dL Phosphorus (2.5-4.5) mg/dL Magnesium (1.6-2.3) mg/dL Total Bilirubin (0.2-1.3) mg/dL Total Protein (6.3-8.2) g/dL Albumin (3.5-5.0) g/dL U Random Total Protein 483 H (<12) mg/dL 07/24/17 07/24/17 07/24/17 Range/Units 13:46 16:45 17:30 RBC (4.30-5.90) m/uL Neutrophils # (1.3-7.7) k/uL Lymphocytes # (1.0-4.8) k/uL ABG pH (7.35-7.45) ABG pCO2 (35-45) mmHg ABG pO2 (83-108) mmHg ABG Total CO2 (19-24) mmol/L ABG O2 Saturation (94-97) % Sodium 135 L 136 L (137-145) mmol/L Potassium 6.2 H* 5.8 H (3.5-5.1) mmol/L Chloride 108 H (98-107) mmol/L BUN 92 H* 94 H* (9-20) mg/dL Creatinine 2.45 H 2.50 H (0.66-1.25) mg/dL Glucose 130 H 63 L (74-99) mg/dL POC Glucose (mg/dL) 110 H (75-99) mg/dL Calcium 7.8 L 7.9 L (8.4-10.2) mg/dL Phosphorus (2.5-4.5) mg/dL Magnesium (1.6-2.3) mg/dL Total Bilirubin (0.2-1.3) mg/dL Total Protein (6.3-8.2) g/dL Albumin (3.5-5.0) g/dL U Random Total Protein (<12) mg/dL 07/24/17 07/24/17 07/25/17 Range/Units 20:56 21:24 04:13 RBC 4.25 L (4.30-5.90) m/uL Neutrophils # 8.0 H (1.3-7.7) k/uL Lymphocytes # 0.6 L (1.0-4.8) k/uL ABG pH (7.35-7.45) ABG pCO2 (35-45) mmHg ABG pO2 (83-108) mmHg ABG Total CO2 (19-24) mmol/L ABG O2 Saturation (94-97) % Sodium 134 L (137-145) mmol/L Potassium 6.1 H (3.5-5.1) mmol/L Chloride (98-107) mmol/L BUN 98 H* (9-20) mg/dL Creatinine 2.60 H (0.66-1.25) mg/dL Glucose 180 H (74-99) mg/dL POC Glucose (mg/dL) 394 H (75-99) mg/dL Calcium 8.0 L (8.4-10.2) mg/dL Phosphorus (2.5-4.5) mg/dL Magnesium (1.6-2.3) mg/dL Total Bilirubin (0.2-1.3) mg/dL Total Protein (6.3-8.2) g/dL Albumin (3.5-5.0) g/dL U Random Total Protein (<12) mg/dL 07/25/17 07/25/17 07/25/17 Range/Units 04:13 06:00 06:01 RBC (4.30-5.90) m/uL Neutrophils # (1.3-7.7) k/uL Lymphocytes # (1.0-4.8) k/uL ABG pH (7.35-7.45) ABG pCO2 (35-45) mmHg ABG pO2 (83-108) mmHg ABG Total CO2 (19-24) mmol/L ABG O2 Saturation (94-97) % Sodium 134 L (137-145) mmol/L Potassium 5.9 H (3.5-5.1) mmol/L Chloride 109 H (98-107) mmol/L BUN 103 H* (9-20) mg/dL Creatinine 2.60 H (0.66-1.25) mg/dL Glucose 64 L (74-99) mg/dL POC Glucose (mg/dL) 258 H 103 H (75-99) mg/dL Calcium 8.0 L (8.4-10.2) mg/dL Phosphorus 4.6 H (2.5-4.5) mg/dL Magnesium 2.8 H (1.6-2.3) mg/dL Total Bilirubin 0.1 L (0.2-1.3) mg/dL Total Protein 4.3 L (6.3-8.2) g/dL Albumin 2.1 L (3.5-5.0) g/dL U Random Total Protein (<12) mg/dL Microbiology - Last 24 Hours (Table) 07/23/17 11:28 Urine Culture - Final Urine,Catheterized 07/21/17 11:27 Blood Culture - Preliminary Blood No Growth after 72 hours Assessment and Plan Assessment: This is a 67-year-old gentleman who was admitted to the hospital with dyspnea and COPD exacerbation. The heart rate and blood pressure have improved on the current dose of Cardizem by mouth. The echocardiogram was reviewed and revealed normal LV function without any significant valvular abnormalities. From the carotid vascular standpoint of view, no reason to do any further cardiac workup and will follow-up with the patient on when necessary case
[2017-07-25] MEDS: BUDESONIDE 0.5 MG/2 ML NEBU INHALATION SCH (08:00)
[2017-07-25] MEDS: FORMOTEROL FUMARATE 20 MCG/2 ML NEBU INHALATION SCH (08:00)
[2017-07-25] MEDS: IPRATROPIUM-ALBUTEROL 3 ML NEB INHALATION SCH ×4 (08:03→20:20)
[2017-07-25] MEDS ORDERED: ENOXAPARIN 30 MG/0.3 ML SYRINGE SQ SCH (09:00)
[2017-07-25] MEDS ORDERED: SODIUM POLYSTYRENE SULFONATE 15 GM/60 ML BOTTLE PO STA (09:01)
[2017-07-25] MEDS ORDERED: FUROSEMIDE 10 MG/ML 10 ML VIAL IV STA (09:01)
[2017-07-25] MEDS: ASPIRIN 81 MG PO SCH (09:20)
[2017-07-25] MEDS: SEVELAMER 800 MG TAB PO SCH ×3 (09:20→17:50)
[2017-07-25] MEDS: AZITHROMYCIN 500 MG TAB PO SCH (09:20)
[2017-07-25] MEDS: FAMOTIDINE 20 MG TAB PO SCH (09:21)
[2017-07-25] MEDS: DILTIAZEM ORAL 30 MG TAB PO SCH ×3 (09:21→20:59)
[2017-07-25] MEDS: SODIUM BICARBONATE TAB 650 MG TAB PO SCH ×2 (09:22→20:59)
[2017-07-25] MEDS: cefTRIAXone IN SWFI 1,000 MG/10 ML SYRINGE IVP SCH (10:28)
[2017-07-25] MEDS: SYMBICORT 160-4.5 MCG INHALER INHALATION SCH ×2 (11:31→20:20)
[2017-07-25] MEDS: SODIUM CHLORIDE 0.9% 1,000 ML IV SCH ×2 (11:37→21:00)
[2017-07-25] MEDS: HEPARIN SODIUM,PORCINE/D5W PMX 25,000 UNIT in DEXTROSE/WATER 1 500ML.BAG IV SCH (11:38)
[2017-07-25 11:53] LABS: Glucose,Whole Blood 130 mg/dL (75-99)
[2017-07-25 12:26] LABS: Free Kappa Lt Chain Qnt, Serum 3.91 mg/dL (0.33-1.94)
[2017-07-25 12:48] LABS: Hepatitis B Surface Antibody Non-Reactive (Non-Reactive)
[2017-07-25 13:28] LABS: Free Lambda Lt Chain Qt, Urine 2.87 mg/dL (0.020-0.670)
[2017-07-25 13:43] LABS: Free Kappa Lt Chain Qnt, Urine 8.86 mg/dL (0.140-2.420)
--- NOTE | 2017-07-25 14:35 | P.PN ---
Subjective Progress Note Date: 07/25/17 Principal diagnosis: Acute exacerbation of COPD and the right sided heart failure 67-old male patient, a chronic smoker, with known history of COPD whereas been followed up at the [facility] in [place]. The patient is maintained on a combination of Spiriva and Symbicort. During his last evaluation, the patient was checked for oxygen supplementation patient was not found to qualify as to maintain a saturation above 90%. The patient lives alone in [address]. The patient is chronically short of breath however he has been able to manage well, live independently and perform activities of daily today life without any major difficulties. He is a COPD exacerbation was approximately 6 months ago and this was treated and outpatient basis with a combination of antibiotics and steroids. Over the past week, the patient became progressively worse in terms of his breathing and he became short of breath, developed congested cough and sputum production and increased bronchospasm wheezing. He also noted increased lower extremity swelling. No previous history of DVT or pulmonary embolism. No previous history of congestion heart failure. No angina. No palpitations. He had missed a smoker half pack of cigarettes on a daily basis. He had a chest x-ray here in the hospital that showed pulmonary vessel congestion and small right-sided pleural effusion in addition to a hyperinflation consistent with COPD. His BNP level is elevated at 3200. First set of cardiac enzyme including CPK was normal and the troponin was at 0.013. Coagulation profile is within normal limits. On 07/23/2017 I'm seeing this patient for a follow-up. The patient got moved to the intensive care unit earlier this morning as the patient was getting progressively more short of breath. He was very anxious and he was unable to lay down in bed because of increased shortness of breath. At that point the patient got transferred to the intensive care unit. He was placed on the BiPAP at a pressure of 10/5 cm of water. He was also given a dose of Ativan which helped him with his anxiety and shortness of breath. The patient tells that he is unable to tolerate systemic steroids because makes him agitated and restless and for that reason I will switch this patient from IV Solu Medrol to high-dose oral prednisone starting with 60 mg on a daily basis. He is still on bronchodilators and he'll be placed on a combination of Perforomist and Pulmicort neb last 2 minutes twice a day in addition to DuoNeb the breast units 4 times a day. He is on empiric antibiotic coverage. His chest x-ray still showing some small bilateral pleural effusions. VQ scan was of indeterminate probability for pulmonary embolism. The patient Doppler of the lower extremity that showed no venous Doppler/DVT yet there was an arterial subocclusive clot at the left femoral artery. On examination the patient has palpable pulses in the femoral area and pulses in the distal lower extremities are diminished and there obtained by Doppler. He denies having any claudication. The feet are warm bilaterally. The patient continues to have some chronic edema lower extremities bilaterally. No angina. He was having some urinary retention his creatinine is up to 1.98 on the patient is also developed a component of hyperkalemia with a potassium level of 6.1.. We further came to find out that the patient was having difficulty in urination and his bladder scan showed urinary retention and the patient had a Sánchez catheter inserted immediately. On 07/24/2017 the patient remains short of breath anxious and having difficulty breathing. He still has to be supported with BiPAP which is helping his acute COPD exacerbation is stabilizing his COPD exacerbation. He is also an acute kidney injury. Creatinine is on the rise. A Sánchez catheter was inserted. There is no evidence of hydronephrosis. Urine output is diminished and the patient was given more fluids yesterday. No signs of any significant fluid overload. He has chronic lower extremities edema which remains unchanged. No chest pain. No fever or chills. No change in mental status. I took him off the IV Solu Medrol and put him on oral prednisone due to reported side effects to Solu-Medrol. I think it's crucial to put him back on Solu-Medrol and will monitor for any potential side effects of this point. On 07/25/2017, patient remains relatively anxious, experiencing intermittent episodes of shortness of breath, complaining that his medications that he took at home were not restarted, hence Symbicort was restarted, and patient seems to be on appropriate course of bronchodilators for his underlying COPD. Patient seems to be complaining of abdominal distention and his last bowel movement was yesterday. His abdomen seems to be tympanitic on physical examination. Patient denies any significant abdominal pain. Potassium is elevated at 5.9, patient received Kayexalate, BUN is 103 creatinine is 2.60. Patient is being followed by nephrology. It was felt that the patient had acute kidney injury. Objective - Vital Signs Vital signs: Vital Signs Temp 97.8 F 07/25/17 12:00 Pulse 93 07/25/17 13:00 Resp 12 07/25/17 13:00 BP 154/84 07/25/17 13:00 Pulse Ox 92 L 07/25/17 13:00 Intake & Output 07/24/17 07/25/17 07/25/17 18:59 06:59 18:59 Intake Total 1095 925 915 Output Total 480 345 330 Balance 615 580 585 Weight 62.4 kg Intake: IV 975 825 525 Sodium Chloride 0.9% 1, 975 825 525 000 ml @ 75 mls/hr IV . [id number] FOZIA Rx#:[id number] Oral 120 100 390 Output: Urine 480 345 330 Other: Voiding Method Indwelling Catheter Indwelling Catheter Indwelling Catheter # Voids 0 - Exam PHYSICAL EXAMINATION: Patient is lying in the bed comfortably, no acute distress, awake alert and oriented.. On nasal cannula HEENT: Normocephalic. Neck is supple. Pupils reactive. Nostrils clear. Oral cavity is moist. Ears reveal no drainage. Neck reveals no JVD, carotid bruits, or thyromegaly. CHEST EXAMINATION: Trachea is central. Symmetrical expansion. Bilateral diffuse wheezing present and diminished air entry. No rhonchi no crackles. CARDIAC: Normal S1, S2 with no gallops. No murmurs ABDOMEN: Slightly distended, no rebound, no guarding, tympanitic on percussion, diminished bowel sounds. Extremities: 1+ edema. No clubbing or cyanosis Neurologically awake, alert, oriented x3 with well-coordinated movements. No focal deficits noted Skin: No rash or skin lesions. Psychiatric: Normal mood and affect. Normal mental status exam. Musculoskeletal: No deformities, normal range of motion. - Labs CBC & Chem 7: 07/25/17 04:13 07/25/17 04:13 Labs: Abnormal Lab Results - Last 24 Hours (Table) 07/24/17 07/24/17 07/24/17 Range/Units 11:30 13:46 16:45 RBC (4.30-5.90) m/uL Neutrophils # (1.3-7.7) k/uL Lymphocytes # (1.0-4.8) k/uL Sodium 135 L 136 L (137-145) mmol/L Potassium 6.2 H* 5.8 H (3.5-5.1) mmol/L Chloride 108 H (98-107) mmol/L BUN 92 H* 94 H* (9-20) mg/dL Creatinine 2.45 H 2.50 H (0.66-1.25) mg/dL Glucose 130 H 63 L (74-99) mg/dL POC Glucose (mg/dL) (75-99) mg/dL Calcium 7.8 L 7.9 L (8.4-10.2) mg/dL Phosphorus (2.5-4.5) mg/dL Magnesium (1.6-2.3) mg/dL Total Bilirubin (0.2-1.3) mg/dL Total Protein (6.3-8.2) g/dL Total Protein (PEP) (6.2-8.2) g/dL Albumin (3.5-5.0) g/dL U Free [place]ambda Light Ch 2.870 H (0.020-0.670) mg/dL Free [place] LC, Quant (0.33-1.94) mg/dL 07/24/17 07/24/17 07/24/17 Range/Units 17:30 20:56 21:24 RBC (4.30-5.90) m/uL Neutrophils # (1.3-7.7) k/uL Lymphocytes # (1.0-4.8) k/uL Sodium 134 L (137-145) mmol/L Potassium 6.1 H (3.5-5.1) mmol/L Chloride (98-107) mmol/L BUN 98 H* (9-20) mg/dL Creatinine 2.60 H (0.66-1.25) mg/dL Glucose 180 H (74-99) mg/dL POC Glucose (mg/dL) 110 H 394 H (75-99) mg/dL Calcium 8.0 L (8.4-10.2) mg/dL Phosphorus (2.5-4.5) mg/dL Magnesium (1.6-2.3) mg/dL Total Bilirubin (0.2-1.3) mg/dL Total Protein (6.3-8.2) g/dL Total Protein (PEP) (6.2-8.2) g/dL Albumin (3.5-5.0) g/dL U Free [place]ambda Light Ch (0.020-0.670) mg/dL Free [place] LC, Quant (0.33-1.94) mg/dL 07/25/17 07/25/17 07/25/17 Range/Units 04:13 04:13 04:13 RBC 4.25 L (4.30-5.90) m/uL Neutrophils # 8.0 H (1.3-7.7) k/uL Lymphocytes # 0.6 L (1.0-4.8) k/uL Sodium 134 L (137-145) mmol/L Potassium 5.9 H (3.5-5.1) mmol/L Chloride 109 H (98-107) mmol/L BUN 103 H* (9-20) mg/dL Creatinine 2.60 H (0.66-1.25) mg/dL Glucose 64 L (74-99) mg/dL POC Glucose (mg/dL) (75-99) mg/dL Calcium 8.0 L (8.4-10.2) mg/dL Phosphorus 4.6 H (2.5-4.5) mg/dL Magnesium 2.8 H (1.6-2.3) mg/dL Total Bilirubin 0.1 L (0.2-1.3) mg/dL Total Protein 4.3 L (6.3-8.2) g/dL Total Protein (PEP) 4.2 L (6.2-8.2) g/dL Albumin 2.1 L (3.5-5.0) g/dL U Free [place] Light Ch (0.020-0.670) mg/dL Free [place] LC, Quant 3.91 H (0.33-1.94) mg/dL 07/25/17 07/25/17 07/25/17 Range/Units 06:00 06:01 11:50 RBC (4.30-5.90) m/uL Neutrophils # (1.3-7.7) k/uL Lymphocytes # (1.0-4.8) k/uL Sodium (137-145) mmol/L Potassium (3.5-5.1) mmol/L Chloride (98-107) mmol/L BUN (9-20) mg/dL Creatinine (0.66-1.25) mg/dL Glucose (74-99) mg/dL POC Glucose (mg/dL) 258 H 103 H 130 H (75-99) mg/dL Calcium (8.4-10.2) mg/dL Phosphorus (2.5-4.5) mg/dL Magnesium (1.6-2.3) mg/dL Total Bilirubin (0.2-1.3) mg/dL Total Protein (6.3-8.2) g/dL Total Protein (PEP) (6.2-8.2) g/dL Albumin (3.5-5.0) g/dL U Free [place] Light Ch (0.020-0.670) mg/dL Free [place] LC, Quant (0.33-1.94) mg/dL Microbiology - Last 24 Hours (Table) 07/23/17 11:28 Urine Culture - Final Urine,Catheterized 07/21/17 11:27 Blood Culture - Preliminary Blood No Growth after 72 hours Assessment and Plan Plan: 1 acute COPD exacerbation with secondary shortness of breath. He more short of breath overnight and Subsequently more anxious. He was moved to the intensive care unit where he was started on a BiPAP treatment for respiratory support. 2 CHF , essentially right-sided heart failure with significant edema in lower extremities bilaterally. 3 acute kidney injury, initially thought that this was a obstructive uropathy at a Sánchez catheter was inserted and the patient has no evidence of any hydronephrosis. Suspect an underlying ATN. Potassium level is slightly elevated at 6.0. No EKG changes. 4 chronic smoker 5. Hyperthyroidism status post radioactive iodine treatment, his subsequent TSH level is elevated. 6 peripheral vascular disease with a thrombotic segment of the left femoral artery without evidence of any acute vascular insufficiency at this point. The patient was also seen by Dr. Wood from cardiology. In the meantime I felt patient would benefit from being on IV heparin. Dr. Wood is aware of his left femoral thrombosis. Recommendation: Continue cautious IV hydration, continue to monitor his renal status closely, continue bronchodilators for COPD, started on heparin for his left femoral thromboses, monitor his abdominal status closely since the patient is distended and tympanitic abdominal findings noted. Keep the patient in the ICU and monitor closely. Patient remains at relatively high risk for developing respiratory failure and requiring mechanical ventilation but not at this point yet. We'll continue to follow. Time with Patient: Less than 30
[2017-07-25 17:47] LABS: Glucose,Whole Blood 172 mg/dL (75-99)
[2017-07-25] MEDS: NICOTINE POLACRILEX 2 MG GUM BUCCAL PRN (19:01)
[2017-07-25 21:00] LABS: Glucose,Whole Blood 305 mg/dL (75-99)
[2017-07-25 21:00] LABS: Glucose,Whole Blood 152 mg/dL (75-99)
--- NOTE | 2017-07-25 21:39 | PN ---
PROGRESS NOTE The patient is seen for followup for acute kidney injury. He had been on ibuprofen 600 mg 2-3 times a day prior to admission. He is currently in the ICU mainly for COPD exacerbation. The patient states he is feeling better. His potassium remains elevated. Urine output is at about 35-50 mL an hour. Currently patient is maintained on IV fluids at 75 mL an hour. His blood pressure is staying on the higher side. Chest x-ray from today shows a patchy density in the right medial lung, atelectasis versus infiltrate. EXAMINATION: Blood pressure is 147/77, earlier this morning was 172/88. He is afebrile. Heart rate about 100-90 per minute. Examination of the heart S1, S2. Examination of the lungs, bilateral breath sounds are heard. Abdomen is soft, nontender. Examination lower extremities shows chronic skin changes. [employer] exam is grossly intact. Patient moving all 4 extremities. LAB: Show sodium 134, potassium 5.9, BUN 103, serum creatinine 2.6, hemoglobin 13.4 g/dL. ASSESSMENT: 1. Acute kidney injury, appears to be acute tubular necrosis. Currently nonoliguric. Urine output remains slightly on the lower side. I will give 1 dose of Lasix as blood pressure is also on the high side. His serum creatinine is about the same as yesterday. The previous creatinine was 1.3 on 07/21/2017. There is no evidence of obstructive uropathy. 2. Acute chronic obstructive pulmonary disease exacerbation with tracheobronchitis, maintained on steroids and updraft treatments. Patient is also on Solu-Medrol. 3. Hyperphosphatemia, maintained on Renvela. 4. Mild metabolic acidosis, CO2 maintained at about 22-24. The patient is on sodium bicarb. 5. Elevated lambda and kappa light chains with ratio above 4. The patient will need further evaluation by hematology. This could also be done as outpatient. Urine immunofixation will be ordered as well. 6. Hyperkalemia associated with acute kidney injury. We will repeat a dose of Kayexalate. Continue with the sodium bicarb and the Lasix should help with the hyperkalemia. 7. Disproportionately elevated BUN secondary to steroids. PLAN: Lasix x1, repeat Kayexalate 30 g, check urine immunofixation, repeat labs in a.m., continue to avoid nephrotoxic agents. The patient will need outpatient followup. MMODL / IJN: [id number] /
--- NOTE | 2017-07-25 23:14 | P.PN ---
Subjective Progress Note Date: 07/25/17 Principal diagnosis: Acute COPD exacerbation Patient is a 67-year-old male with a known history of COPD , hypothyroidism with history of radiation came to ER with complaints of worsening short of breath for the past 1 week. Patient also complained of cough with sputum production. Whitish to maury colored. No fever no chills. Patient was also having wheezing on admission seen currently. Patient otherwise denied any complaints of chest pain. Patient was also found to have mild leg swelling. Patient does not have a history of coronary artery disease. Patient follows with [facility] in [place]. Patient continues to smoke 1 pack per day. He had a chest x-ray here in the hospital that showed pulmonary vessel congestion and small right-sided pleural effusion in addition to a hyperinflation consistent with COPD. His BNP level is elevated at 3200. First set of cardiac enzyme including CPK was normal and the troponin was at 0.013. Coagulation profile is within normal limits. 07/23/2017 Patient went into respiratory distress this morning and was placed on BiPAP machine. Patient was transferred to MICU. Currently patient is on and maintaining saturation. Patient was found to have acute kidney injury and hyperkalemia today. Patient had urinary retention and possible obstructive acute kidney injury. Patient was placed on Sánchez catheter now and is maintaining good urine output. Patient had VQ scan showing moderate probable for PE. Patient is maintained on Lovenox for left femoral partial thrombus. Maintaining good arterial blood flow. Patient does not have any fever or chills. No nausea vomiting no diarrhea. All other review of systems negative except as above. 07/24/2017 Patient is still having shortness of breath and requiring BiPAP intermittently. Patient is also hyperkalemic and worsening renal function. Patient has been afebrile. Denied any chest pain. Chest x-ray showed a showed resolving findings of CHF. Due to worsening renal function and decreased urine output patient was started on IV fluids as well. 07/25/2017 Patient is still short of breath and anxious. According BiPAP intermittently. Potassium level V.9 today. Nephrology and pulmonary is on board. Renal function stable. No fever no chills. No complaints of chest pain. All other review of systems negative except the above Current medications reviewed Objective - Vital Signs Vital signs: Vital Signs Temp 98.5 F 07/25/17 20:00 Pulse 91 07/25/17 22:00 Resp 14 07/25/17 22:00 BP 147/80 07/25/17 22:00 Pulse Ox 92 L 07/25/17 22:00 Intake & Output 07/25/17 07/25/17 07/26/17 06:59 18:59 06:59 Intake Total 925 1710 658.762 Output Total 345 468 110 Balance 580 1242 548.762 Weight 62.4 kg Intake: IV 825 900 300 Sodium Chloride 0.9% 1, 825 900 300 000 ml @ 75 mls/hr IV . [id number] FO[facility]IA Rx#:[id number] Intake, IV Titration 118.762 Amount Heparin Sodium,Porcine/ 118.762 D5w Pmx 25,000 unit In Dextrose/Water 1 500ml. bag @ 12 UNITS/KG/HR 14. 97 mls/hr IV .Q24H FOZIA Rx #:[id number] Oral 100 810 240 Output: Urine 345 468 110 Other: Voiding Method Indwelling Catheter Indwelling Catheter Indwelling Catheter # Voids 0 - Exam PHYSICAL EXAMINATION: Patient is lying in the bed comfortably, no acute distress, awake alert and oriented.. On BiPAP HEENT: Normocephalic. Neck is supple. Pupils reactive. Nostrils clear. Oral cavity is moist. Ears reveal no drainage. Neck reveals no JVD, carotid bruits, or thyromegaly. CHEST EXAMINATION: Trachea is central. Symmetrical expansion. Bilateral diffuse wheezing present and diminished air entry. No rhonchi no crackles. CARDIAC: Normal S1, S2 with no gallops. No murmurs ABDOMEN: Soft. Bowel sounds normal. No organomegaly. No abdominal bruits. Extremities: 1+ edema. No clubbing or cyanosis Neurologically awake, alert, oriented x3 with well-coordinated movements. No focal deficits noted Skin: No rash or skin lesions. Psychiatric: coOperative. Nonsuicidal Musculoskeletal: No joint swelling or deformity. Normal range of motion. - Labs CBC & Chem 7: 07/25/17 04:13 07/25/17 04:13 Labs: Abnormal Lab Results - Last 24 Hours (Table) 07/24/17 07/25/17 07/25/17 Range/Units 11:30 04:13 04:13 RBC 4.25 L (4.30-5.90) m/uL Neutrophils # 8.0 H (1.3-7.7) k/uL Lymphocytes # 0.6 L (1.0-4.8) k/uL APTT (22.0-30.0) sec Sodium (137-145) mmol/L Potassium (3.5-5.1) mmol/L Chloride (98-107) mmol/L BUN (9-20) mg/dL Creatinine (0.66-1.25) mg/dL Glucose (74-99) mg/dL POC Glucose (mg/dL) (75-99) mg/dL Calcium (8.4-10.2) mg/dL Phosphorus (2.5-4.5) mg/dL Magnesium (1.6-2.3) mg/dL Total Bilirubin (0.2-1.3) mg/dL Total Protein (6.3-8.2) g/dL Total Protein (PEP) 4.2 L (6.2-8.2) g/dL Albumin (3.5-5.0) g/dL U Free [place] Light Ch 8.860 H (0.140-2.420) mg/dL U Free Lambda Light Ch 2.870 H (0.020-0.670) mg/dL Free [place] LC, Quant 3.91 H (0.33-1.94) mg/dL 07/25/17 07/25/17 07/25/17 Range/Units 04:13 06:00 06:01 RBC (4.30-5.90) m/uL Neutrophils # (1.3-7.7) k/uL Lymphocytes # (1.0-4.8) k/uL APTT (22.0-30.0) sec Sodium 134 L (137-145) mmol/L Potassium 5.9 H (3.5-5.1) mmol/L Chloride 109 H (98-107) mmol/L BUN 103 H* (9-20) mg/dL Creatinine 2.60 H (0.66-1.25) mg/dL Glucose 64 L (74-99) mg/dL POC Glucose (mg/dL) 258 H 103 H (75-99) mg/dL Calcium 8.0 L (8.4-10.2) mg/dL Phosphorus 4.6 H (2.5-4.5) mg/dL Magnesium 2.8 H (1.6-2.3) mg/dL Total Bilirubin 0.1 L (0.2-1.3) mg/dL Total Protein 4.3 L (6.3-8.2) g/dL Total Protein (PEP) (6.2-8.2) g/dL Albumin 2.1 L (3.5-5.0) g/dL U Free [place] Light Ch (0.140-2.420) mg/dL U Free Lambda Light Ch (0.020-0.670) mg/dL Free [place] LC, Quant (0.33-1.94) mg/dL 07/25/17 07/25/17 07/25/17 Range/Units 11:50 17:45 18:00 RBC (4.30-5.90) m/uL Neutrophils # (1.3-7.7) k/uL Lymphocytes # (1.0-4.8) k/uL APTT 45.5 H (22.0-30.0) sec Sodium (137-145) mmol/L Potassium (3.5-5.1) mmol/L Chloride (98-107) mmol/L BUN (9-20) mg/dL Creatinine (0.66-1.25) mg/dL Glucose (74-99) mg/dL POC Glucose (mg/dL) 130 H 172 H (75-99) mg/dL Calcium (8.4-10.2) mg/dL Phosphorus (2.5-4.5) mg/dL Magnesium (1.6-2.3) mg/dL Total Bilirubin (0.2-1.3) mg/dL Total Protein (6.3-8.2) g/dL Total Protein (PEP) (6.2-8.2) g/dL Albumin (3.5-5.0) g/dL U Free [place] Light Ch (0.140-2.420) mg/dL U Free Lambda Light Ch (0.020-0.670) mg/dL Free [place] LC, Quant (0.33-1.94) mg/dL 07/25/17 07/25/17 Range/Units 20:56 20:57 RBC (4.30-5.90) m/uL Neutrophils # (1.3-7.7) k/uL Lymphocytes # (1.0-4.8) k/uL APTT (22.0-30.0) sec Sodium (137-145) mmol/L Potassium (3.5-5.1) mmol/L Chloride (98-107) mmol/L BUN (9-20) mg/dL Creatinine (0.66-1.25) mg/dL Glucose (74-99) mg/dL POC Glucose (mg/dL) 305 H 152 H (75-99) mg/dL Calcium (8.4-10.2) mg/dL Phosphorus (2.5-4.5) mg/dL Magnesium (1.6-2.3) mg/dL Total Bilirubin (0.2-1.3) mg/dL Total Protein (6.3-8.2) g/dL Total Protein (PEP) (6.2-8.2) g/dL Albumin (3.5-5.0) g/dL U Free [place] Light Ch (0.140-2.420) mg/dL U Free Lambda Light Ch (0.020-0.670) mg/dL Free [place] LC, Quant (0.33-1.94) mg/dL Microbiology - Last 24 Hours (Table) 07/21/17 11:27 Blood Culture - Preliminary Blood No Growth after 96 hours 07/23/17 11:28 Urine Culture - Final Urine,Catheterized Assessment and Plan Assessment: 1 acute COPD exacerbation with tracheobronchitis #2 elevated BNP at 3200. Possible new onset CHF. Diastolic dysfunction. Right heart failure. #3 acute kidney injury. Nonoliguric. Possible ATN, cardiorenal and also obstructive uropathy. #4 left femoral artery thrombus. No DVT 5 nicotine addiction #6 hypothyroidism. His history of radioactive iron treatment #7 moderate probable for PE on VQ scan #8 urinary retention. Patient was placed on Sánchez catheter #9 hyperkalemia and hyperphosphatemia due to acute kidney injury. #10 significant proteinuria. No history of diabetes . possible nephrotic syndrome. #11 anxiety Plan: Patient will be continued on breathing treatments and IV steroids. Continue with Pulmicort and formoterol. Continued antibiotics in the form of ceftriaxone and azithromycin. Cardiology and pulmonary and nephrology is following. Due to femoral thrombus patient will be started on anticoagulation with Lovenox . Continue to monitor renal function. Continue with thyroid supplements. Will follow closely. Prognosis is guarded.
[2017-07-26] MEDS: methylPREDNISolone SOD SUCCI 125 MG/2 ML VIAL IV SCH ×4 (00:11→18:26)
[2017-07-26] MEDS: ALPRAZolam 0.5 MG TAB PO PRN ×2 (02:12→07:57)
[2017-07-26 04:23] LABS: Basophils % (A) 0 %; CH 31.4; CHCM 31.9; Eosinophils % (A) 0 %; HDW 2.33; HGB 11.7 gm/dL (13.0-17.5); Luc # (Auto) 0.06; Luc % (Auto) 1; Lymphocytes # (A) 0.6 k/uL (1.0-4.8); Lymphocytes % (A) 6 %; MCH 31.2 pg (25.0-35.0); MCHC 31.5 g/dL (31.0-37.0); MCV 99.1 fL (80.0-100.0); Mean Platelet Volume 7.9; Monocytes # (A) 0.4 k/uL (0-1.0); Monocytes % (A) 5 %; Neutrophils # (A) 7.8 k/uL (1.3-7.7); Neutrophils % (A) 88 %; RBC 3.73 m/uL (4.30-5.90); RDW 14.5 % (11.5-15.5); WBC 8.8 k/uL (3.8-10.6); WBC (Perox) 9.24
[2017-07-26 05:57] LABS: Calcium 7.6 mg/dL (8.4-10.2); Magnesium 2.7 mg/dL (1.6-2.3); Phosphorus 5.6 mg/dL (2.5-4.5); Potassium 5.5 mmol/L (3.5-5.1); Total Bilirubin 0.1 mg/dL (0.2-1.3); Total Protein 3.8 g/dL (6.3-8.2)
[2017-07-26] MEDS: LEVOTHYROXINE 75 MCG TAB PO SCH (06:02)
[2017-07-26 07:24] LABS: Glucose,Whole Blood 140 mg/dL (75-99)
[2017-07-26] MEDS: IPRATROPIUM-ALBUTEROL 3 ML NEB INHALATION SCH (07:46)
[2017-07-26] MEDS: SYMBICORT 160-4.5 MCG INHALER INHALATION SCH (07:47)
[2017-07-26 07:54] LABS: Glucose,Whole Blood 193 mg/dL (75-99)
--- NOTE | 2017-07-26 07:57 | XR ---
EXAMINATION TYPE: XR chest 1V portable DATE OF EXAM: 07/26/2017 Comparison: 07/25/2017 Clinical History: 67-year-old male COPD exacerbation vs CHF Findings: The heart is normal size. Aorta and pulmonary vasculature are within normal limits. Mild diffuse inte rstitial prominence unchanged. Patchy bibasilar opacities are redemonstrated. The previous medial rig ht basilar opacity is slightly less confluent. Trace left effusion difficult to exclude. Impression: 1. Patchy bibasilar atelectasis or early infiltrates. Aeration is slightly improved at the right base . 2. Trace left effusion difficult to exclude. Otherwise, no other specific findings of CHF.
[2017-07-26] MEDS: AZITHROMYCIN 500 MG TAB PO SCH (07:58)
[2017-07-26] MEDS: ASPIRIN 81 MG PO SCH (07:58)
[2017-07-26] MEDS: SEVELAMER 800 MG TAB PO SCH ×3 (07:58→15:43)
[2017-07-26] MEDS: cefTRIAXone IN SWFI 1,000 MG/10 ML SYRINGE IVP SCH (07:59)
[2017-07-26] MEDS: DILTIAZEM ORAL 30 MG TAB PO SCH ×2 (07:59→19:15)
[2017-07-26] MEDS: SODIUM BICARBONATE TAB 650 MG TAB PO SCH (08:00)
[2017-07-26] MEDS: FAMOTIDINE 20 MG TAB PO SCH (08:00)
[2017-07-26] MEDS: INSULIN LISPRO (humaLOG) 300 UNIT/3 ML VIAL SQ SCH ×3 (08:01→20:00)
[2017-07-26 08:09] LABS: Glucose,Whole Blood 139 mg/dL (75-99)
[2017-07-26] MEDS ORDERED: FUROSEMIDE 10 MG/ML 10 ML VIAL IV STA (08:25)
[2017-07-26] MEDS: HYDROmorphone 1 MG/ML 1 ML SYRINGE IVP PRN ×3 (08:40→14:53)
--- NOTE | 2017-07-26 11:37 | P.PN ---
Subjective Progress Note Date: 07/26/17 Principal diagnosis: Acute exacerbation of COPD and the right sided heart failure 67-old male patient, a chronic smoker, with known history of COPD whereas been followed up at [facility] [place]. The patient is maintained on a combination of Spiriva and Symbicort. During his last evaluation, the patient was checked for oxygen supplementation patient was not found to qualify as to maintain a saturation above 90%. The patient lives alone in [address]. The patient is chronically short of breath however he has been able to manage well, live independently and perform activities of daily today life without any major difficulties. He is a COPD exacerbation was approximately 6 months ago and this was treated and outpatient basis with a combination of antibiotics and steroids. Over the past week, the patient became progressively worse in terms of his breathing and he became short of breath, developed congested cough and sputum production and increased bronchospasm wheezing. He also noted increased lower extremity swelling. No previous history of DVT or pulmonary embolism. No previous history of congestion heart failure. No angina. No palpitations. He had missed a smoker half pack of cigarettes on a daily basis. He had a chest x-ray here in the hospital that showed pulmonary vessel congestion and small right-sided pleural effusion in addition to a hyperinflation consistent with COPD. His BNP level is elevated at 3200. First set of cardiac enzyme including CPK was normal and the troponin was at 0.013. Coagulation profile is within normal limits. On 07/23/2017 I'm seeing this patient for a follow-up. The patient got moved to the intensive care unit earlier this morning as the patient was getting progressively more short of breath. He was very anxious and he was unable to lay down in bed because of increased shortness of breath. At that point the patient got transferred to the intensive care unit. He was placed on the BiPAP at a pressure of 10/5 cm of water. He was also given a dose of Ativan which helped him with his anxiety and shortness of breath. The patient tells that he is unable to tolerate systemic steroids because makes him agitated and restless and for that reason I will switch this patient from IV Solu Medrol to high-dose oral prednisone starting with 60 mg on a daily basis. He is still on bronchodilators and he'll be placed on a combination of Perforomist and Pulmicort neb last 2 minutes twice a day in addition to DuoNeb the breast units 4 times a day. He is on empiric antibiotic coverage. His chest x-ray still showing some small bilateral pleural effusions. VQ scan was of indeterminate probability for pulmonary embolism. The patient Doppler of the lower extremity that showed no venous Doppler/DVT yet there was an arterial subocclusive clot at the left femoral artery. On examination the patient has palpable pulses in the femoral area and pulses in the distal lower extremities are diminished and there obtained by Doppler. He denies having any claudication. The feet are warm bilaterally. The patient continues to have some chronic edema lower extremities bilaterally. No angina. He was having some urinary retention his creatinine is up to 1.98 on the patient is also developed a component of hyperkalemia with a potassium level of 6.1.. We further came to find out that the patient was having difficulty in urination and his bladder scan showed urinary retention and the patient had a Sánchez catheter inserted immediately. On 07/24/2017 the patient remains short of breath anxious and having difficulty breathing. He still has to be supported with BiPAP which is helping his acute COPD exacerbation is stabilizing his COPD exacerbation. He is also an acute kidney injury. Creatinine is on the rise. A Sánchez catheter was inserted. There is no evidence of hydronephrosis. Urine output is diminished and the patient was given more fluids yesterday. No signs of any significant fluid overload. He has chronic lower extremities edema which remains unchanged. No chest pain. No fever or chills. No change in mental status. I took him off the IV Solu Medrol and put him on oral prednisone due to reported side effects to Solu-Medrol. I think it's crucial to put him back on Solu-Medrol and will monitor for any potential side effects of this point. On 07/25/2017, patient remains relatively anxious, experiencing intermittent episodes of shortness of breath, complaining that his medications that he took at home were not restarted, hence Symbicort was restarted, and patient seems to be on appropriate course of bronchodilators for his underlying COPD. Patient seems to be complaining of abdominal distention and his last bowel movement was yesterday. His abdomen seems to be tympanitic on physical examination. Patient denies any significant abdominal pain. Potassium is elevated at 5.9, patient received Kayexalate, BUN is 103 creatinine is 2.60. Patient is being followed by nephrology. It was felt that the patient had acute kidney injury. On 07/26/2017, patient developed more shortness of breath today, required to be placed on BiPAP, IPAP is 10, EPAP is 5. Remains on multiple bronchodilators for his COPD, patient had bowel movement yesterday, potassium remains a bit elevated, being addressed by nephrology. Renal functioning is also noted, and again this is being addressed by nephrology. Patient was felt to have acute kidney injury. Continues to have intermittent abdominal aches and pains, but based on physical examination today, abdomen does not seem to be surgical in nature. BUN is 119 creatinine is 2.60 potassium is 5.5 today. PTT is therapeutic at 56.8 Objective - Vital Signs Vital signs: Vital Signs Temp 97.4 F L 07/26/17 08:00 Pulse 77 07/26/17 10:00 Resp 13 07/26/17 10:00 BP 151/80 07/26/17 10:00 Pulse Ox 95 07/26/17 10:00 Intake & Output 07/25/17 07/26/17 07/26/17 18:59 06:59 18:59 Intake Total 1710 1258.762 245 Output Total 468 315 145 Balance 1242 943.762 100 Weight 64.9 kg Intake: IV 900 900 245 Sodium Chloride 0.9% 1, 900 900 245 000 ml @ 75 mls/hr IV . [id number] FOZIA Rx#:[id number] Intake, IV Titration 118.762 Amount Heparin Sodium,Porcine/ 118.762 D5w Pmx 25,000 unit In Dextrose/Water 1 500ml. bag @ 12 UNITS/KG/HR 14. 97 mls/hr IV .Q24H FOZIA Rx #:[id number] Oral 810 240 Output: Urine 468 315 145 Other: Voiding Method Indwelling Catheter Indwelling Catheter Indwelling Catheter # Voids 0 - Exam PHYSICAL EXAMINATION: Patient is lying in the bed comfortably, no acute distress, awake alert and oriented.. On BiPAP at present. HEENT: Normocephalic. Neck is supple. Pupils reactive. Nostrils clear. Oral cavity is moist. Ears reveal no drainage. Neck reveals no JVD, carotid bruits, or thyromegaly. CHEST EXAMINATION: Trachea is central. Symmetrical expansion. Bilateral diffuse wheezing present and diminished air entry. No rhonchi no crackles. CARDIAC: Normal S1, S2 with no gallops. No murmurs ABDOMEN: Soft nontender no rebound no guarding, positive bowel sounds. Extremities: 1+ edema. No clubbing or cyanosis Neurologically awake, alert, oriented x3 with well-coordinated movements. No focal deficits noted Skin: No rash or skin lesions. Psychiatric: Normal mood and affect. Normal mental status exam. Musculoskeletal: No deformities, normal range of motion. - Labs CBC & Chem 7: 07/26/17 04:02 07/26/17 04:02 Labs: Abnormal Lab Results - Last 24 Hours (Table) 07/24/17 07/25/17 07/25/17 Range/Units 11:30 04:13 11:50 RBC (4.30-5.90) m/uL Hgb (13.0-17.5) gm/dL Hct (39.0-53.0) % Neutrophils # (1.3-7.7) k/uL Lymphocytes # (1.0-4.8) k/uL APTT (22.0-30.0) sec Sodium (137-145) mmol/L Potassium (3.5-5.1) mmol/L Chloride (98-107) mmol/L BUN (9-20) mg/dL Creatinine (0.66-1.25) mg/dL Glucose (74-99) mg/dL POC Glucose (mg/dL) 130 H (75-99) mg/dL Calcium (8.4-10.2) mg/dL Phosphorus (2.5-4.5) mg/dL Magnesium (1.6-2.3) mg/dL Total Bilirubin (0.2-1.3) mg/dL Total Protein (6.3-8.2) g/dL Total Protein (PEP) 4.2 L (6.2-8.2) g/dL Albumin (3.5-5.0) g/dL U Free [place] Light Ch 8.860 H (0.140-2.420) mg/dL U Free [place]ambda Light Ch 2.870 H (0.020-0.670) mg/dL Free [place] LC, Quant 3.91 H (0.33-1.94) mg/dL 07/25/17 07/25/17 07/25/17 Range/Units 17:45 18:00 20:56 RBC (4.30-5.90) m/uL Hgb (13.0-17.5) gm/dL Hct (39.0-53.0) % Neutrophils # (1.3-7.7) k/uL Lymphocytes # (1.0-4.8) k/uL APTT 45.5 H (22.0-30.0) sec Sodium (137-145) mmol/L Potassium (3.5-5.1) mmol/L Chloride (98-107) mmol/L BUN (9-20) mg/dL Creatinine (0.66-1.25) mg/dL Glucose (74-99) mg/dL POC Glucose (mg/dL) 172 H 305 H (75-99) mg/dL Calcium (8.4-10.2) mg/dL Phosphorus (2.5-4.5) mg/dL Magnesium (1.6-2.3) mg/dL Total Bilirubin (0.2-1.3) mg/dL Total Protein (6.3-8.2) g/dL Total Protein (PEP) (6.2-8.2) g/dL Albumin (3.5-5.0) g/dL U Free [place] Light Ch (0.140-2.420) mg/dL U Free Lambda Light Ch (0.020-0.670) mg/dL Free [place] LC, Quant (0.33-1.94) mg/dL 07/25/17 07/25/17 07/26/17 Range/Units 20:57 23:42 04:02 RBC 3.73 L (4.30-5.90) m/uL Hgb 11.7 L (13.0-17.5) gm/dL Hct 37.0 L (39.0-53.0) % Neutrophils # 7.8 H (1.3-7.7) k/uL Lymphocytes # 0.6 L (1.0-4.8) k/uL APTT 49.4 H (22.0-30.0) sec Sodium (137-145) mmol/L Potassium (3.5-5.1) mmol/L Chloride (98-107) mmol/L BUN (9-20) mg/dL Creatinine (0.66-1.25) mg/dL Glucose (74-99) mg/dL POC Glucose (mg/dL) 152 H (75-99) mg/dL Calcium (8.4-10.2) mg/dL Phosphorus (2.5-4.5) mg/dL Magnesium (1.6-2.3) mg/dL Total Bilirubin (0.2-1.3) mg/dL Total Protein (6.3-8.2) g/dL Total Protein (PEP) (6.2-8.2) g/dL Albumin (3.5-5.0) g/dL U Free [place] Light Ch (0.140-2.420) mg/dL U Free [place]ambda Light Ch (0.020-0.670) mg/dL Free [place] LC, Quant (0.33-1.94) mg/dL 07/26/17 07/26/17 07/26/17 Range/Units 04:02 06:27 07:22 RBC (4.30-5.90) m/uL Hgb (13.0-17.5) gm/dL Hct (39.0-53.0) % Neutrophils # (1.3-7.7) k/uL Lymphocytes # (1.0-4.8) k/uL APTT 56.8 H (22.0-30.0) sec Sodium 134 L (137-145) mmol/L Potassium 5.5 H (3.5-5.1) mmol/L Chloride 109 H (98-107) mmol/L BUN 119 H* (9-20) mg/dL Creatinine 2.60 H (0.66-1.25) mg/dL Glucose 155 H (74-99) mg/dL POC Glucose (mg/dL) 140 H (75-99) mg/dL Calcium 7.6 L (8.4-10.2) mg/dL Phosphorus 5.6 H (2.5-4.5) mg/dL Magnesium 2.7 H (1.6-2.3) mg/dL Total Bilirubin 0.1 L (0.2-1.3) mg/dL Total Protein 3.8 L (6.3-8.2) g/dL Total Protein (PEP) (6.2-8.2) g/dL Albumin 1.9 L (3.5-5.0) g/dL U Free [place] Light Ch (0.140-2.420) mg/dL U Free Lambda Light Ch (0.020-0.670) mg/dL Free [place] LC, Quant (0.33-1.94) mg/dL 07/26/17 07/26/17 Range/Units 07:52 07:57 RBC (4.30-5.90) m/uL Hgb (13.0-17.5) gm/dL Hct (39.0-53.0) % Neutrophils # (1.3-7.7) k/uL Lymphocytes # (1.0-4.8) k/uL APTT (22.0-30.0) sec Sodium (137-145) mmol/L Potassium (3.5-5.1) mmol/L Chloride (98-107) mmol/L BUN (9-20) mg/dL Creatinine (0.66-1.25) mg/dL Glucose (74-99) mg/dL POC Glucose (mg/dL) 193 H 139 H (75-99) mg/dL Calcium (8.4-10.2) mg/dL Phosphorus (2.5-4.5) mg/dL Magnesium (1.6-2.3) mg/dL Total Bilirubin (0.2-1.3) mg/dL Total Protein (6.3-8.2) g/dL Total Protein (PEP) (6.2-8.2) g/dL Albumin (3.5-5.0) g/dL U Free [place] Light Ch (0.140-2.420) mg/dL U Free Lambda Light Ch (0.020-0.670) mg/dL Free [place] LC, Quant (0.33-1.94) mg/dL Microbiology - Last 24 Hours (Table) 07/21/17 11:27 Blood Culture - Preliminary Blood No Growth after 96 hours Assessment and Plan Plan: 1 acute COPD exacerbation with secondary shortness of breath. Presently on BiPAP, and on multiple bronchodilators and steroids. 2 CHF , essentially right-sided heart failure with significant edema in lower extremities bilaterally. 3 acute kidney injury, suspect acute tubular necrosis. Being followed by nephrology. 4 chronic smoker 5. Hyperthyroidism status post radioactive iodine treatment, his subsequent TSH level is elevated. 6 peripheral vascular disease with a thrombotic segment of the left femoral artery without evidence of any acute vascular insufficiency at this point. Remains on IV heparin for now. Recommendation: Continue cautious IV hydration, continue to monitor his renal status closely, continue bronchodilators for COPD, started on heparin for his left femoral thromboses, monitor his abdominal status closely . Continue to monitor the patient in the ICU, presently keep on BiPAP, we'll follow closely. Time with Patient: Less than 30
[2017-07-26] MEDS ORDERED: ALBUTEROL (PROAIR) INHALER INHALATION PRN (11:49)
[2017-07-26] MEDS ORDERED: SYMBICORT 160-4.5 MCG INHALER INHALATION SCH ×2 (11:53)
[2017-07-26] MEDS ORDERED: ALBUTEROL INHALATION PRN (12:11)
[2017-07-26 12:42] LABS: Glucose,Whole Blood 238 mg/dL (75-99)
[2017-07-26] MEDS: HEPARIN SODIUM,PORCINE/D5W PMX 25,000 UNIT in DEXTROSE/WATER 1 500ML.BAG IV SCH (13:07)
[2017-07-26 13:17] LABS: Glucose,Whole Blood 192 mg/dL (75-99)
[2017-07-26] MEDS ORDERED: FUROSEMIDE 10 MG/ML 10 ML VIAL IV SCH (13:30)
[2017-07-26] MEDS ORDERED: NALOXONE 0.4 MG/ML 1 ML VIAL IV STA (14:55)
[2017-07-26] MEDS: TIOTROPIUM INHALATION SCH ×2 (15:36→16:00)
[2017-07-26] MEDS: ALBUTEROL 2.5 MG/3 ML INHALATION SCH ×2 (15:43→19:25)
[2017-07-26] MEDS: SODIUM CHLORIDE 0.9% 1,000 ML IV SCH (15:44)
[2017-07-26 16:15] LABS: Glucose,Whole Blood 213 mg/dL (75-99)
[2017-07-26] MEDS ORDERED: NALOXONE 0.4 MG/ML 1 ML VIAL ONE (16:47)
[2017-07-26] MEDS ORDERED: SODIUM CHLORIDE 0.9% 1,000 ML IV ONE (17:49)
[2017-07-26] MEDS ORDERED: NOREPINEPHRIN 4 MG-0.9% NS PMX 4 MG/250 ML ML IV SCH (18:00)
[2017-07-26 19:19] LABS: Glucose,Whole Blood 224 mg/dL (75-99)
--- NOTE | 2017-07-26 19:34 | CT ---
EXAMINATION TYPE: CT abdomen pelvis wo con DATE OF EXAM: 07/26/2017 COMPARISON: NONE HISTORY: Generalized pain CT DLP: 417.7 mGycm Examination of the solid and hollow viscera is limited given the lack of contrast. Examination is fur ther limited by lack of intra-abdominal fat FINDINGS: LUNG BASES: Bilateral pleural effusions with compressive atelectasis. LIVER/GB: The gallbladder is unremarkable. No space-occupying hepatic lesion. PANCREAS: Poorly characterized limited evaluation. SPLEEN: No evidence for splenomegaly. No intrasplenic lesions seen. ADRENALS: Poorly characterized limited evaluation. KIDNEYS: No evidence for renal mass. No nephrolithiasis. No hydronephrosis. BOWEL: Small bowel is poorly characterized. There is displacement of small and large bowel loops ante riorly and centrally. There are ill-defined masses within the retroperitoneum bilaterally with enlarg ement of the bilateral psoas musculature and associated complex fluid collections. On the left fluid collection measures 12.1 x 9.8 x 19 cm. On the right collection measures 8.3 x 13.6 cm. The findings are nonspecific given the lack of contrast and could reflect subacute retroperitoneal hemorrhage, ret roperitoneal abscesses and/or complex retroperitoneal fluid collections. Lymph nodes: No evidence for adenopathy greater than 1 cm. Abdominal aorta: Atheromatous changes seen. 0.5 cm intra-abdominal aortic aneurysm. The graft Genital organs: No significant abnormality. Other: Changes of anasarca. Ascites. Degenerative changes lumbar spine. IMPRESSION: 1. SIGNIFICANTLY LIMITED STUDY GIVEN LACK OF INTRAVENOUS AND GI CONTRAST. STUDY IS FURTHER LIMITED BY THE ANASARCA AND LACK OF INTRA-ABDOMINAL FAT. 2 NOTED THERE IS ENLARGEMENT OF THE BILATERAL PSOAS MUSCULATURE WITH ASSOCIATED COMPLEX CYSTIC MAS SES WHICH MAY REFLECT SUBACUTE HEMORRHAGE, ABSCESS FORMATION AND/OR COMPLEX LOCULATED FLUID COLLECTIO NS.
[2017-07-26 19:57] LABS: ABG HCO3 19 mmol/L (21-25); ABG PCO2 46 mmHg (35-45); ABG PH 7.23 (7.35-7.45); ABG PO2 77 mmHg (83-108); ABG TCO2 20 mmol/L (19-24)
[2017-07-26 19:58] LABS: ABG Base Excess -7.7 mmol/L
[2017-07-26 20:36] LABS: Basophils % (A) 0 %; CH 30.2; CHCM 29.5; Eosinophils # (A) 0.1 k/uL (0-0.7); Eosinophils % (A) 1 %; HDW 2.46; Hypochromasia Marked; Luc # (Auto) 0.09; Luc % (Auto) 1; Lymphocytes # (A) 0.7 k/uL (1.0-4.8); Lymphocytes % (A) 7 %; MCH 31.4 pg (25.0-35.0); MCHC 30.6 g/dL (31.0-37.0); MCV 102.9 fL (80.0-100.0); Macrocytosis Slight; Mean Platelet Volume 8.6; Monocytes # (A) 0.5 k/uL (0-1.0); Monocytes % (A) 5 %; Neutrophils # (A) 9.1 k/uL (1.3-7.7); Neutrophils % (A) 87 %; RBC 1.78 m/uL (4.30-5.90); RDW 14.4 % (11.5-15.5); WBC 10.5 k/uL (3.8-10.6); WBC (Perox) 10.74
[2017-07-26 20:43] LABS: HGB 5.6 gm/dL (13.0-17.5)
[2017-07-26 20:44] LABS: HCT 18.3 % (39.0-53.0)
[2017-07-26] MEDS ORDERED: VANCOMYCIN IV PER PHARMACY 1 EACH MISC MISCELLANE PRN (20:46)
[2017-07-26] MEDS ORDERED: SUCCINYLCHOLINE CHLORIDE 100 MG/5 ML SYR IV ONE (20:50)
[2017-07-26] MEDS ORDERED: PHENYLEPHRINE-0.9% NACL SYG 1 MG/10 ML SYRINGE ONE (20:50)
[2017-07-26] MEDS ORDERED: ePHEDrine SULFATE/0.9% NACL/PF 50 MG/5 ML SYRINGE IV ONE (20:50)
[2017-07-26] MEDS ORDERED: PROPOFOL 10 MG/ML 20 ML VIAL IV ONE (20:50)
[2017-07-26] MEDS ORDERED: PROPOFOL 1,000 MG/100 ML VIAL IV ONE (21:13)
--- NOTE | 2017-07-26 21:13 | PN ---
PROGRESS NOTE The patient is seen for followup for acute kidney injury. This morning he has had marginal urine output. Urine output has been at 30-10 mL an hour. Patient is maintained on BiPAP. His chest x-ray from early this morning shows trace left pleural effusion. Patchy bibasilar atelectasis. The patient had some shortness of breath also earlier and his IV fluids have been decreased. Blood pressure had been low and 70s to 80s later on this evening and patient has been started on Levophed. PHYSICAL EXAMINATION: This morning, blood pressure was 130-140 mmHg systolic. His heart rate was about 89-70 per minute. Patient has been afebrile. Examination of the heart S1, S2. Examination of the lungs bilateral breath sounds are heard. ABDOMEN: Soft, distended, examined, and nontender. Examination lower extremities shows no significant edema. Patient is responding to simple questions. His labs show sodium 134, potassium 5.5, chloride 119, CO2 is 24, serum creatinine 2.6, hemoglobin 11.7 g/dL. ASSESSMENT: Acute kidney injury, currently in acute tubular necrosis. The patient has responded to Lasix for 1 or 2 hours and if his urine output drops again I will start him on 60 mg IV q.8 hours. There are no nephrotoxic agents on board. If the urine output continues to worsen and renal function deteriorates, patient may need renal replacement therapy. PLAN: Start Lasix 60 mg q.8 hours and repeat labs in a.m. Of note is that the patient apparently became hypotensive. This is upon review of notes later on today. He has been started on Levophed and a CT scan shows possible psoas bleed. MMODL / IJN: [id number] /
[2017-07-26] MEDS ORDERED: VANCOMYCIN 1,500 MG in SODIUM CHLORIDE 0.9% 250 ML IVPB ONE (21:30)
[2017-07-26 21:43] LABS: ABG HCO3 19 mmol/L (21-25); ABG PCO2 56 mmHg (35-45); ABG PH 7.15 (7.35-7.45); ABG PO2 321 mmHg (83-108); ABG TCO2 21 mmol/L (19-24)
[2017-07-26 21:44] LABS: ABG Base Excess -8.5 mmol/L
--- NOTE | 2017-07-26 22:27 | XR ---
EXAMINATION TYPE: XR chest 1V portable DATE OF EXAM: 07/26/2017 COMPARISON: Today HISTORY: Short of breath TECHNIQUE: Single frontal view of the chest is obtained. FINDINGS: Endotracheal tube is in good position. There is slight blunting of costophrenic angles. Th ere are no hilar masses. Thoracic aorta is atheromatous. There is nasogastric tube. There are chest l buffy. IMPRESSION: There is evidence of small pleural effusions. Endotracheal tube is in good position. No heart failure.
[2017-07-26] MEDS ORDERED: SODIUM BICARB 8.4% 50 ML SYR (1 MEQ/ML) IV STA (22:43)
--- NOTE | 2017-07-26 22:45 | P.PN ---
Progress Note - Text Progress Note Date: 07/26/[address] bear dictating a progress note on this patient: late in the afternoon, patient developed worsening abdominal pain, has a CT of the abdomen and pelvis was ordered based on my recommendation, and it came back positive for ascites, hematomas in the psoas muscles bilaterally, and suggestive of retroperitoneal hemorrhage. Hence heparin was discontinued, repeat hemoglobin was 5.6, 3 units of packed RBCs were ordered. In the meantime the patient was developing more shortness of breath, and more abdominal tenderness. Surgical consult was initiated with Dr. Ramirez, and he was made aware of the results of the CT of the abdomen and pelvis. He was also made aware that intra-abdominal pressure was measured, as was highly suggestive of acute abdominal compartment syndrome. Pressures were in the range of 22. He felt that the patient is a high surgical risk, and he recommended immediate transfer to a tertiary care center. Seems to be reluctant to take the patientfor emergency exploratory laparotomy. I discussed the patient with him over the phone, and he felt it would be best to transfer the patient to a tertiary care center. patient seems to have multiple medical problems and he is extremely high surgical risk. Hence I called the transfer team at [facility], and discussed the case with the surgical training specialist university demonstrator. And he accepted the patient to be transferred. In the meantime I have ordered blood to be transfused, patient was intubated for worsening respiratory status and worsening respiratory and metabolic acidosis. Patient was placed on mechanical ventilation with assist control rate of 26, tidal volume of 450, FiO2 of 50%, and PEEP of 5. ABG before transfer showed a pO2 of 113 pCO2 of 50 pH of 7.17, patient will be given bicarb, and will increase the assist control rate to 32, and an amp of bicarb was given. I came in to see the patient in the ICU, and I have placed a right femoral triple-lumen catheter because of the dopamine infusion, and the patient is to receive 3 units of packed RBCs as soon as possible. Heparin all along has been discontinued.norepinephrine at this point is at 30 mcg/m. Fluid boluses were given for low blood pressure, and I expect the blood pressure to improve significantly once blood transfusion is initiated.at this point, the patient is in the process of being transferred to [facility].
[2017-07-26 23:07] LABS: ABG Base Excess -9.6 mmol/L; ABG HCO3 18 mmol/L (21-25); ABG PCO2 50 mmHg (35-45); ABG PH 7.17 (7.35-7.45); ABG PO2 113 mmHg (83-108); ABG TCO2 19 mmol/L (19-24)
--- NOTE | 2017-07-26 23:16 | PCN ---
PROCEDURE NOTE PREOPERATIVE DIAGNOSES: 1. Intra-abdominal bleeding. 2. Hypotension. 3. Possible abdominal compartment syndrome. POSTOPERATIVE DIAGNOSES: 1. Intra-abdominal bleeding. 2. Hypotension. 3. Possible abdominal compartment syndrome. ANESTHESIA USED: 2 mL of 1% lidocaine. PROCEDURE: The patient was placed in a supine position. The area of the right groin was prepared in a sterile fashion and drapes were applied. The area was locally anesthetized with 2 mL of 1% lidocaine. Then the right femoral vein was easily cannulated and a guidewire was placed. A vascular dilator was used over the guidewire and area was dilated. Then a triple-lumen catheter was inserted over the guidewire, and the guidewire was removed. The line was secured using 3.0 silk sutures. Procedure was well tolerated. No evidence of any immediate complications. Blood flow was noted in the 3 different ports of the triple-lumen catheter. MMODL / IJN: [id number] /
[2017-07-26 23:37] VITALS: TEMP 95.5
[2017-07-26 23:42] VITALS: BP 127/60; PULSE 90; RESP 30
[2017-07-27] MEDS ORDERED: MEROPENEM 1 GM in SODIUM CHLORIDE 0.9% 100 ML IVPB SCH ×2
--- NOTE | 2017-07-27 07:03 | US ---
EXAMINATION TYPE: US bladder DATE OF EXAM: 07/26/2017 COMPARISON: US CLINICAL HISTORY: decreased urine. Placement of catheter in bladder, fullness of bladder, exam done p ortable in ICU. Bladder: Decompressed, catheter appears in place Surrounding free fluid in pelvis IMPRESSION: Sánchez catheter placed within the decompressed urinary bladder with surrounding pelvic as cites.
--- NOTE | 2017-07-27 22:24 | P.PN ---
Subjective Progress Note Date: 07/26/17 Principal diagnosis: Acute COPD exacerbation Patient is a 67-year-old male with a known history of COPD , hypothyroidism with history of radiation came to ER with complaints of worsening short of breath for the past 1 week. Patient also complained of cough with sputum production. Whitish to maury colored. No fever no chills. Patient was also having wheezing on admission seen currently. Patient otherwise denied any complaints of chest pain. Patient was also found to have mild leg swelling. Patient does not have a history of coronary artery disease. Patient follows with [facility] in [place]. Patient continues to smoke 1 pack per day. He had a chest x-ray here in the hospital that showed pulmonary vessel congestion and small right-sided pleural effusion in addition to a hyperinflation consistent with COPD. His BNP level is elevated at 3200. First set of cardiac enzyme including CPK was normal and the troponin was at 0.013. Coagulation profile is within normal limits. 07/23/2017 Patient went into respiratory distress this morning and was placed on BiPAP machine. Patient was transferred to MICU. Currently patient is on and maintaining saturation. Patient was found to have acute kidney injury and hyperkalemia today. Patient had urinary retention and possible obstructive acute kidney injury. Patient was placed on Sánchez catheter now and is maintaining good urine output. Patient had VQ scan showing moderate probable for PE. Patient is maintained on Lovenox for left femoral partial thrombus. Maintaining good arterial blood flow. Patient does not have any fever or chills. No nausea vomiting no diarrhea. All other review of systems negative except as above. 07/24/2017 Patient is still having shortness of breath and requiring BiPAP intermittently. Patient is also hyperkalemic and worsening renal function. Patient has been afebrile. Denied any chest pain. Chest x-ray showed a showed resolving findings of CHF. Due to worsening renal function and decreased urine output patient was started on IV fluids as well. 07/25/2017 Patient is still short of breath and anxious. According BiPAP intermittently. Potassium level V.9 today. Nephrology and pulmonary is on board. Renal function stable. No fever no chills. No complaints of chest pain. All other review of systems negative except the above 07/26/2017 Patient is still having short of breath and is requiring BiPAP. Renal function is fairly stable. No complaints of fever or chills. Patient seems anxious. No commerce of chest pain. No nausea vomiting or abdominal pain. Current medications reviewed Objective - Vital Signs Vital signs: Vital Signs Temp 97.4 F L 07/26/17 08:00 Pulse 77 07/26/17 10:00 Resp 13 07/26/17 10:00 BP 151/80 07/26/17 10:00 Pulse Ox 95 07/26/17 10:00 Intake & Output 07/25/17 07/26/17 07/26/17 18:59 06:59 18:59 Intake Total 1710 1258.762 245 Output Total 468 315 145 Balance 1242 943.762 100 Weight 64.9 kg Intake: IV 900 900 245 Sodium Chloride 0.9% 1, 900 900 245 000 ml @ 75 mls/hr IV . [id number] FOZIA Rx#:[id number] Intake, IV Titration 118.762 Amount Heparin Sodium,Porcine/ 118.762 D5w Pmx 25,000 unit In Dextrose/Water 1 500ml. bag @ 12 UNITS/KG/HR 14. 97 mls/hr IV .Q24H FOZIA Rx #:[id number] Oral 810 240 Output: Urine 468 315 145 Other: Voiding Method Indwelling Catheter Indwelling Catheter Indwelling Catheter # Voids 0 - Exam PHYSICAL EXAMINATION: Patient is lying in the bed comfortably, no acute distress, awake alert and oriented.. On BiPAP HEENT: Normocephalic. Neck is supple. Pupils reactive. Nostrils clear. Oral cavity is moist. Ears reveal no drainage. Neck reveals no JVD, carotid bruits, or thyromegaly. CHEST EXAMINATION: Trachea is central. Symmetrical expansion. Bilateral diffuse wheezing present and diminished air entry. No rhonchi no crackles. CARDIAC: Normal S1, S2 with no gallops. No murmurs ABDOMEN: Soft. Bowel sounds normal. No organomegaly. No abdominal bruits. Extremities: 1+ edema. No clubbing or cyanosis Neurologically awake, alert, oriented x3 with well-coordinated movements. No focal deficits noted Skin: No rash or skin lesions. Psychiatric: coOperative. Nonsuicidal Musculoskeletal: No joint swelling or deformity. Normal range of motion. - Labs CBC & Chem 7: 07/26/17 20:19 07/26/17 04:02 Labs: Abnormal Lab Results - Last 24 Hours (Table) 07/24/17 07/25/17 07/25/17 Range/Units 11:30 04:13 11:50 RBC (4.30-5.90) m/uL Hgb (13.0-17.5) gm/dL Hct (39.0-53.0) % Neutrophils # (1.3-7.7) k/uL Lymphocytes # (1.0-4.8) k/uL APTT (22.0-30.0) sec Sodium (137-145) mmol/L Potassium (3.5-5.1) mmol/L Chloride (98-107) mmol/L BUN (9-20) mg/dL Creatinine (0.66-1.25) mg/dL Glucose (74-99) mg/dL POC Glucose (mg/dL) 130 H (75-99) mg/dL Calcium (8.4-10.2) mg/dL Phosphorus (2.5-4.5) mg/dL Magnesium (1.6-2.3) mg/dL Total Bilirubin (0.2-1.3) mg/dL Total Protein (6.3-8.2) g/dL Total Protein (PEP) 4.2 L (6.2-8.2) g/dL Albumin (3.5-5.0) g/dL U Free [place] Light Ch 8.860 H (0.140-2.420) mg/dL U Free [place] Light Ch 2.870 H (0.020-0.670) mg/dL Free [place] LC, Quant 3.91 H (0.33-1.94) mg/dL 07/25/17 07/25/17 07/25/17 Range/Units 17:45 18:00 20:56 RBC (4.30-5.90) m/uL Hgb (13.0-17.5) gm/dL Hct (39.0-53.0) % Neutrophils # (1.3-7.7) k/uL Lymphocytes # (1.0-4.8) k/uL APTT 45.5 H (22.0-30.0) sec Sodium (137-145) mmol/L Potassium (3.5-5.1) mmol/L Chloride (98-107) mmol/L BUN (9-20) mg/dL Creatinine (0.66-1.25) mg/dL Glucose (74-99) mg/dL POC Glucose (mg/dL) 172 H 305 H (75-99) mg/dL Calcium (8.4-10.2) mg/dL Phosphorus (2.5-4.5) mg/dL Magnesium (1.6-2.3) mg/dL Total Bilirubin (0.2-1.3) mg/dL Total Protein (6.3-8.2) g/dL Total Protein (PEP) (6.2-8.2) g/dL Albumin (3.5-5.0) g/dL U Free [place] Light Ch (0.140-2.420) mg/dL U Free Lambda Light Ch (0.020-0.670) mg/dL Free [place] LC, Quant (0.33-1.94) mg/dL 07/25/17 07/25/17 07/26/17 Range/Units 20:57 23:42 04:02 RBC 3.73 L (4.30-5.90) m/uL Hgb 11.7 L (13.0-17.5) gm/dL Hct 37.0 L (39.0-53.0) % Neutrophils # 7.8 H (1.3-7.7) k/uL Lymphocytes # 0.6 L (1.0-4.8) k/uL APTT 49.4 H (22.0-30.0) sec Sodium (137-145) mmol/L Potassium (3.5-5.1) mmol/L Chloride (98-107) mmol/L BUN (9-20) mg/dL Creatinine (0.66-1.25) mg/dL Glucose (74-99) mg/dL POC Glucose (mg/dL) 152 H (75-99) mg/dL Calcium (8.4-10.2) mg/dL Phosphorus (2.5-4.5) mg/dL Magnesium (1.6-2.3) mg/dL Total Bilirubin (0.2-1.3) mg/dL Total Protein (6.3-8.2) g/dL Total Protein (PEP) (6.2-8.2) g/dL Albumin (3.5-5.0) g/dL U Free [place] Light Ch (0.140-2.420) mg/dL U Free [place] Light Ch (0.020-0.670) mg/dL Free [place] LC, Quant (0.33-1.94) mg/dL 07/26/17 07/26/17 07/26/17 Range/Units 04:02 06:27 07:22 RBC (4.30-5.90) m/uL Hgb (13.0-17.5) gm/dL Hct (39.0-53.0) % Neutrophils # (1.3-7.7) k/uL Lymphocytes # (1.0-4.8) k/uL APTT 56.8 H (22.0-30.0) sec Sodium 134 L (137-145) mmol/L Potassium 5.5 H (3.5-5.1) mmol/L Chloride 109 H (98-107) mmol/L BUN 119 H* (9-20) mg/dL Creatinine 2.60 H (0.66-1.25) mg/dL Glucose 155 H (74-99) mg/dL POC Glucose (mg/dL) 140 H (75-99) mg/dL Calcium 7.6 L (8.4-10.2) mg/dL Phosphorus 5.6 H (2.5-4.5) mg/dL Magnesium 2.7 H (1.6-2.3) mg/dL Total Bilirubin 0.1 L (0.2-1.3) mg/dL Total Protein 3.8 L (6.3-8.2) g/dL Total Protein (PEP) (6.2-8.2) g/dL Albumin 1.9 L (3.5-5.0) g/dL U Free [place] Light Ch (0.140-2.420) mg/dL U Free [place]ambda Light Ch (0.020-0.670) mg/dL Free [place] LC, Quant (0.33-1.94) mg/dL 07/26/17 07/26/17 Range/Units 07:52 07:57 RBC (4.30-5.90) m/uL Hgb (13.0-17.5) gm/dL Hct (39.0-53.0) % Neutrophils # (1.3-7.7) k/uL Lymphocytes # (1.0-4.8) k/uL APTT (22.0-30.0) sec Sodium (137-145) mmol/L Potassium (3.5-5.1) mmol/L Chloride (98-107) mmol/L BUN (9-20) mg/dL Creatinine (0.66-1.25) mg/dL Glucose (74-99) mg/dL POC Glucose (mg/dL) 193 H 139 H (75-99) mg/dL Calcium (8.4-10.2) mg/dL Phosphorus (2.5-4.5) mg/dL Magnesium (1.6-2.3) mg/dL Total Bilirubin (0.2-1.3) mg/dL Total Protein (6.3-8.2) g/dL Total Protein (PEP) (6.2-8.2) g/dL Albumin (3.5-5.0) g/dL U Free [place] Light Ch (0.140-2.420) mg/dL U Free Lambda Light Ch (0.020-0.670) mg/dL Free [place] LC, Quant (0.33-1.94) mg/dL Microbiology - Last 24 Hours (Table) 07/21/17 11:27 Blood Culture - Preliminary Blood No Growth after 96 hours Assessment and Plan Assessment: 1 acute COPD exacerbation with tracheobronchitis #2 elevated BNP at 3200. Possible new onset CHF. Diastolic dysfunction. Right heart failure. #3 acute kidney injury. Nonoliguric. Possible ATN, cardiorenal and also obstructive uropathy. #4 left femoral artery thrombus. No DVT 5 nicotine addiction #6 hypothyroidism. His history of radioactive iron treatment #7 moderate probable for PE on VQ scan #8 urinary retention. Patient was placed on Sánchez catheter #9 hyperkalemia and hyperphosphatemia due to acute kidney injury. #10 significant proteinuria. No history of diabetes . possible nephrotic syndrome. #11 anxiety Plan: Patient will be continued on breathing treatments and IV steroids. Continue with Pulmicort and formoterol. Continued antibiotics in the form of ceftriaxone and azithromycin. Cardiology and pulmonary and nephrology is following. Due to femoral thrombus patient will be started on anticoagulation with Lovenox . Continue to monitor renal function. Continue with thyroid supplements. Will follow closely. Prognosis is guarded.
--- NOTE | 2017-07-27 22:31 | P.DS ---
Providers Date of admission: 07/21/17 12:55 Expected date of discharge: 07/26/17 Attending physician: Francois Angulo Consults: 07/21/17 12:54 Consult Physician Routine Consulting Provider: Yonathan Werner Consult Reason/Comments: chf Do you want consulting provider notified?: Yes 07/21/17 12:55 Consult Physician Routine Consulting Provider: Murtaza Troy Consult Reason/Comments: copd Do you want consulting provider notified?: Yes 07/23/17 07:00 Consult Physician Stat Consulting Provider: Kimberly Whitlock Consult Reason/Comments: kidney fx Do you want consulting provider notified?: Yes, Notify in am 07/26/17 17:56 Consult Physician Routine Consulting Provider: Tavon Ramirez Consult Reason/Comments: Abdominal pain Do you want consulting provider notified?: Yes Primary care physician: Justin Rios [facility] Course: Discharge diagnosis #1 acute blood loss anemia likely due to retroperitoneal hemorrhage #2 increased abdominal pressures possible abdominal compartment syndrome #3 acute hypoxic respiratory failure . intubated 1 acute COPD exacerbation with tracheobronchitis #2 elevated BNP at 3200. Possible new onset CHF. Diastolic dysfunction. Right heart failure. #3 acute kidney injury. Nonoliguric. Possible ATN, cardiorenal and also obstructive uropathy. #4 left femoral artery thrombus. No DVT 5 nicotine addiction #6 hypothyroidism. His history of radioactive iron treatment #7 moderate probable for PE on VQ scan #8 urinary retention. Patient was placed on Sánchez catheter #9 hyperkalemia and hyperphosphatemia due to acute kidney injury. #10 significant proteinuria. No history of diabetes . possible nephrotic syndrome. #11 anxiety Hospital course Patient is a 67-year-old male with a known history of COPD , hypothyroidism with history of radiation came to ER with complaints of worsening short of breath for the past 1 week. Patient also complained of cough with sputum production. Whitish to maury colored. No fever no chills. Patient was also having wheezing on admission seen currently. Patient otherwise denied any complaints of chest pain. Patient was also found to have mild leg swelling. Patient does not have a history of coronary artery disease. Patient follows with [facility] in [place]. Patient continues to smoke 1 pack per day. He had a chest x-ray here in the hospital that showed pulmonary vessel congestion and small right-sided pleural effusion in addition to a hyperinflation consistent with COPD. His BNP level is elevated at 3200. First set of cardiac enzyme including CPK was normal and the troponin was at 0.013. Coagulation profile is within normal limits. 07/23/2017 Patient went into respiratory distress this morning and was placed on BiPAP machine. Patient was transferred to MICU. Currently patient is on and maintaining saturation. Patient was found to have acute kidney injury and hyperkalemia today. Patient had urinary retention and possible obstructive acute kidney injury. Patient was placed on Sánchez catheter now and is maintaining good urine output. Patient had VQ scan showing moderate probable for PE. Patient is maintained on Lovenox for left femoral partial thrombus. Maintaining good arterial blood flow. Patient does not have any fever or chills. No nausea vomiting no diarrhea. All other review of systems negative except as above. 07/24/2017 Patient is still having shortness of breath and requiring BiPAP intermittently. Patient is also hyperkalemic and worsening renal function. Patient has been afebrile. Denied any chest pain. Chest x-ray showed a showed resolving findings of CHF. Due to worsening renal function and decreased urine output patient was started on IV fluids as well. 07/25/2017 Patient is still short of breath and anxious. According BiPAP intermittently. Potassium level V.9 today. Nephrology and pulmonary is on board. Renal function stable. No fever no chills. No complaints of chest pain. All other review of systems negative except the above 07/26/2017 Patient is still having short of breath and is requiring BiPAP. Renal function is fairly stable. No complaints of fever or chills. Patient seems anxious. No commerce of chest pain. No nausea vomiting or abdominal pain. Patient was continued on breathing treatments and IV steroids. Continue with Pulmicort and formoterol. Continued antibiotics in the form of ceftriaxone and azithromycin. Cardiology and pulmonary and nephrology is following. Due to femoral thrombus patient will be started on anticoagulation with Lovenox . Continued to monitor renal function. Continue with thyroid supplements. On 07/26/2017 late in the evening patient developed abdominal pain and became more anxious. Patient had CT abdomen and pelvis showed hematoma of psoas muscle suggestive of retroperitoneal hemorrhage. Lovenox was discontinued. Patient was also found to have increased abdominal pressures with possible abdominal compartment syndrome. patient was also found to have acute blood loss anemia with hemoglobin of 5.6. Transfusion for 3 units of PRBC was ordered. Gen. surgery was consulted. Due to worsening clinical situation and high risk for surgery it was advised to the patient to be transferred to tertiary care facility. Patient was intubated and pressors were started. Patient was eventually transferred to [facility] for further management. Total time taken greater than 35 minutes including 18 minutes for counseling and coordination of care. Patient Condition at Discharge: Fair Plan - Discharge Summary Discharge Rx Participant: Yes New Discharge Prescriptions: No Action Aspirin EC [Ecotrin Low Dose] 81 mg PO DAILY Ibuprofen [Motrin] 600 mg PO Q8HR PRN PRN Reason: Pain Tiotropium 18 Mcg/Puff [Spiriva] 1 cap INHALATION RT-DAILY Levothyroxine Sodium [Synthroid] 50 mcg PO DAILY Albuterol Sulfate [Proair Hfa] 1 - 2 puff INHALATION Q6HR PRN PRN Reason: Shortness Of Breath Albuterol Nebulized [Ventolin Nebulized] 2.5 mg INHALATION Q4H Equate Sinus 1 tab PO DAILY Equate Cough And Congestion 1 tab PO DAILY Budesonide/Formoterol Fumarate [Symbicort 80-4.5 Mcg Inhaler] 1 puff INHALATION RT-BID Discharge Medication List Albuterol Nebulized [Ventolin Nebulized] 2.5 mg INHALATION Q4H 07/21/17 [History ] Albuterol Sulfate [Proair Hfa] 1 - 2 puff INHALATION Q6HR PRN 07/21/17 [History] Aspirin EC [Ecotrin Low Dose] 81 mg PO DAILY 07/21/17 [History] Budesonide/Formoterol Fumarate [Symbicort 80-4.5 Mcg Inhaler] 1 puff INHALATION RT-BID 07/21/17 [History] Equate Cough And Congestion 1 tab PO DAILY 07/21/17 [History] Equate Sinus 1 tab PO DAILY 07/21/17 [History] Ibuprofen [Motrin] 600 mg PO Q8HR PRN 07/21/17 [History] Levothyroxine Sodium [Synthroid] 50 mcg PO DAILY 07/21/17 [History] Tiotropium 18 Mcg/Puff [Spiriva] 1 cap INHALATION RT-DAILY 07/21/17 [History] Follow up Appointment(s)/Referral(s): Justin Rios DO [Primary Care Provider] - 1-2 days Discharge Disposition: DC/TRNS IP HOSP W/PLND IP READ
[2017-07-28] MEDS ORDERED: VANCOMYCIN 1,250 MG in SODIUM CHLORIDE 0.9% 250 ML IVPB SCH (21:00)
== END 2017-07-26 22:23 | disposition short-term general hospital (02) | DRG 190 ==
LOC: EC 10:56 → 4MS4W 12:55 → 6ICU 07-23 07:01
PROVIDERS: ADMIT Hospitalist; ATTEND Hospitalist
PROC: 06HM33Z Insertion of Infusion Device into Right Femoral Vein, Percutaneous Approach (ICD-10-PCS; principal; 2017-07-26)
PROC: 30243N1 Transfusion of Nonautologous Red Blood Cells into Central Vein, Percutaneous Approach (ICD-10-PCS; 2017-07-26)
DX: J44.1 Chronic obstructive pulmonary disease with (acute) exacerbation (principal); I50.33 Acute on chronic diastolic (congestive) heart failure; J96.01 Acute respiratory failure with hypoxia; N17.0 Acute kidney failure with tubular necrosis; E87.4 Mixed disorder of acid-base balance; I74.3 Embolism and thrombosis of arteries of the lower extremities; D62 Acute posthemorrhagic anemia; T79.A3XA Traumatic compartment syndrome of abdomen, initial encounter; J98.11 Atelectasis; I95.9 Hypotension, unspecified; I11.0 Hypertensive heart disease with heart failure; I50.813 Acute on chronic right heart failure; E83.39 Other disorders of phosphorus metabolism; E87.5 Hyperkalemia; E89.0 Postprocedural hypothyroidism; F17.210 Nicotine dependence, cigarettes, uncomplicated; F41.9 Anxiety disorder, unspecified; H35.30 Unspecified macular degeneration; N13.9 Obstructive and reflux uropathy, unspecified; T38.0X5A Adverse effect of glucocorticoids and synthetic analogues, initial encounter; T50.2X5A Adverse effect of carbonic-anhydrase inhibitors, benzothiadiazides and other diuretics, initial encounter; R58 Hemorrhage, not elsewhere classified; I73.9 Peripheral vascular disease, unspecified; Z79.82 Long term (current) use of aspirin; Z79.899 Other long term (current) drug therapy; Z82.49 Family history of ischemic heart disease and other diseases of the circulatory system; Y92.239 Unspecified place in hospital as the place of occurrence of the external cause
CPT/HCPCS: 36415; 36600; 71010; 71020; 74176; 76770; 76857; 78582; 80048; 80053; 81001; 82550; 82553; 82570; 82805; 83036; 83605; 83735; 83880; 83883; 84100; 84156; 84165; 84439; 84443; 84484; 85025; 85379; 85610; 85730; 86335; 86706; 86803; 86850; 86900; 86901; 86920; 87040; 87086; 87340; 93005; 93306; 93970; 94002; 94640; 94644; 94660; 94760; 96361; 96365; 96375; 99285